=== PATIENT | male | born 1960 | race Caucasian/White ===

== ENCOUNTER 2016-06-11 20:08 | Inpatient (IN) | payer BC, OTHER ==
--- NOTE | 2016-06-11 20:17 | HP ---
CIWA Score - CIWA Score Nausea/Vomitin Muscle Tremors: 3 Anxiety: 3 Agitation: 3 Paroxysmal Sweats: 2 Orientation: 0-Oriented Tacttile Disturbances: 2-Mild Itch/Numbness/Burn Auditory Disturbances: 2-Mild Harshness/Frighten Visual Disturbances: 2-Mild Sensitivity Headache: 2-Mild CIWA-Ar Total Score: 22 Admission ROS BHS - HPI Chief Complaint: i need help to stop drinking alcohol Allergies/Adverse Reactions: Allergies Allergy/AdvReac Type Severity Reaction Status Date / Time No Known Allergies Allergy Verified 06/11/16 23:16 History of Present Illness: this 56 years old male seeking help to stop drinking alcohol,history of alcohol detox before,did not recall last detox when and where history of hypertension,hypercholestrolemia,abdominal aortic aneurysm depression longest period of sobriety 10 years - Ebola screening Have you traveled outside of the country in the last 21 days: No (N) Have you had contact with anyone from an Ebola affected area: No Have you been sick,other than usual withdrawal symptoms: No Do you have a fever: No - Review of Systems Constitutional: Loss of Appetite, Malaise, Night Sweats, Changes in sleep EENT: reports: Nose Congestion Respiratory: reports: No Symptoms reported Cardiac: reports: Palpitations GI: reports: Diarrhea, Nausea, Poor Appetite : reports: No Symptoms Reported, Other (cancaer of prostate psot seeding) Musculoskeletal: reports: Muscle Pain Integumentary: reports: Dryness Neuro: reports: Headache, Tremors Endocrine: reports: No Symptoms Reported Hematology: reports: No Symptoms Reported Psychiatric: reports: Depressed (abdominal aortic aneurysm 3.6 cms follow up with pmd and specialist) Patient History - Patient Medical History Hx Anemia: No Hx Asthma: No Hx Chronic Obstructive Pulmonary Disease (COPD): No Hx Cancer: No Hx Cardiac Disorders: No Hx Congestive Heart Failure: No Hx Hypertension: Yes (on med) Hx Hypercholesterolemia: Yes (on mde) Hx Pacemaker: No HX Cerebrovascular Accident: No Hx Seizures: No Hx Dementia: No Hx Diabetes: No Hx Gastrointestinal Disorders: No Hx Liver Disease: No Hx Genitourinary Disorders: No Hx Sexually Transmitted Disorders: No Hx Renal Disease (ESRD): No Hx Thyroid Disease: No Hx Human Immunodeficiency Virus (HIV): No (negative) Hx Hepatitis C: No Hx Depression: Yes Hx Suicide Attempt: No Hx Bipolar Disorder: No Hx Schizophrenia: No Other Medical History: no suicidal,no homicidal - Patient Surgical History Past Surgical History: Yes Hx Genitourinary Surgery: Yes (seeding for cancer of prostate) Other Surgical History: prostate seed implant - PPD History Previous Implant?: Yes Documented Results: Negative w/o proof Implanted On Prior [facility] Admission?: No PPD to be Administered?: Yes - Smoking Cessation Smoking history: Never smoked Aproximately how many cigarettes per day: 0 - Substance & Tx. History Hx Alcohol Use: Yes Hx Substance Use: No Substance Use Type: Alcohol Hx Substance Use Treatment: Yes - Substances Abused Alcohol Route: Oral Frequency: Daily Amount used: 2 pints of whiskey Age of first use: 19 Date of Last Use: 06/11/16 Family Disease History - Family Disease History Family History: Denies Admission Physical Exam [facility] - Vital Signs Vital Signs: Vital Signs Temperature 97.5 F L 06/11/16 20:35 Pulse Rate 92 H 06/11/16 20:35 Respiratory Rate 29 H 06/11/16 20:35 Blood Pressure 117/81 06/11/16 20:35 O2 Sat by Pulse Oximetry (%) - Physical General Appearance: Yes: Moderate Distress, Alcohol on Breath, Tremorous, Irritable, Sweating, Anxious HEENTM: Yes: Hearing grossly Normal, Normal ENT Inspection, JOSE, Pharynx Normal Respiratory: Yes: Lungs Clear, Normal Breath Sounds, No Respiratory Distress Neck: Yes: Within Normal Limits, Supple, Trachea in good position Breast: Yes: Within Normal Limits Cardiology: Yes: Within Normal Limits, Regular Rhythm, Regular Rate, S1, S2 Abdominal: Yes: Within Normal Limits, Normal Bowel Sounds, Non Tender, Flat, Soft, Other (pulsating mass aaa) Genitourinary: Yes: Within Normal Limits Back: Yes: Muscle Spasm Musculoskeletal: Yes: Within Normal Limits, Muscle Pain Extremities: Yes: Tremors Neurological: 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: 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 intact, Fully Oriented, Alert, Motor Strength 5/5 Integumentary: Yes: Dry Lymphatic: Yes: Within Normal Limits - Diagnostic (1) Alcohol dependence with uncomplicated withdrawal Current Visit: Yes Status: Acute (2) Alcohol dependence with uncomplicated intoxication Current Visit: Yes Status: Acute (3) Hypertension Current Visit: Yes Status: Acute (4) Hypercholesterolemia Current Visit: Yes Status: Acute (5) Depression Current Visit: Yes Status: Acute (6) History of prostate cancer Current Visit: Yes Status: Acute (7) History of abdominal aortic aneurysm (AAA) Current Visit: Yes Status: Acute Cleared for Admission S - Detox or Rehab [facility] Level of Care: Medically Managed Detox Regimen/Protocol: Librium S Breath Alcohol Content Breath Alcohol Content: 0.298 Vital Signs - Vital Signs Vital Signs Refused: No Temperature: 97.5 F Temperature Source: Oral Pulse Rate: 92 Respiratory Rate: 29 Blood Pressure: 117/81 BP Location: Left Arm - Height Height: 5 ft 11 in - Weight Weight: 150 lb Weight Measurement Method: Standing Scale Body Mass Index (BMI): 20.9 Urine Drug Screen - Test Device Lot Number: [id number] Expiration Date: 01/11/18 - Control Is Test Valid: Yes - Results Drug Screen Negative: Yes
[2016-06-11 20:22] VITALS: BMI 20.9
[2016-06-11] MEDS ORDERED: MAGNESIUM HYDROX 2400MG/30ML ORAL SUSPENSION 30 ML CUP PO PRN (20:40)
[2016-06-11] MEDS ORDERED: LOPERAMIDE HCL 2 MG CAPSULE PO PRN (20:40)
[2016-06-11] MEDS ORDERED: hydrOXYzine PAMOATE 50 MG CAPSULE (FP) PO PRN (20:40)
[2016-06-11] MEDS ORDERED: guaiFENesin/D-METHORPHAN HB 10 ML UNIT-DOSE CUPS PO PRN (20:40)
[2016-06-11] MEDS ORDERED: ACETAMINOPHEN 325 MG TABLET (FP) PO PRN (20:40)
[2016-06-11] MEDS ORDERED: P-EPHED 60MG/TRIPROLIDI 2.5MG TABLET PO PRN (20:40)
[2016-06-11] MEDS ORDERED: chlordiazePOXIDE HCL 25 MG CAPSULE PO PRN (20:40)
[2016-06-11] MEDS ORDERED: diphenhydrAMINE HCL 50 MG CAPSULE PO PRN (20:40)
[2016-06-11] MEDS ORDERED: chlordiazePOXIDE HCL 25 MG CAPSULE PO ONE (20:40)
[2016-06-11] MEDS ORDERED: MENTHOL/PHENOL 1 EACH UD MM PRN (20:40)
[2016-06-11] MEDS ORDERED: MAG HYDROX/AL HYDROX/SIMETH 30 ML UNIT-DOSE CUP PO PRN (20:40)
[2016-06-11] MEDS ORDERED: IBUPROFEN 400 MG TABLET (FP) PO PRN (20:40)
[2016-06-11] MEDS ORDERED: MAGNESIUM CITRATE 300 ML BOTTLE PO PRN (20:40)
[2016-06-11] MEDS: THIAMINE HCL 100 MG TABLET (FP) PO SCH (23:22)
[2016-06-11] MEDS: ROSUVASTATIN CA 10 MG TABLET (FP) PO SCH (23:22)
[2016-06-11] MEDS: chlordiazePOXIDE HCL 25 MG CAPSULE PO SCH (23:23)
[2016-06-12] MEDS: chlordiazePOXIDE HCL 25 MG CAPSULE PO SCH ×4 (05:34→22:28)
[2016-06-12] MEDS ORDERED: METOPROLOL SUCCINATE 25 MG TAB.SR.24H (FP) PO SCH (10:00)
[2016-06-12 10:01] LABS: MCH 32.9 pg (25.7-33.7); MCHC 33.7 g/dl (32.0-35.9); MEAN CELL VOLUME 97.4 fl (80-96); PLATELET COUNT 246 K/MM3 (134-434); RDW 13.7 % (11.9-15.9); WHITE BLOOD COUNT 4.3 K/mm3 (4.0-10.0)
[2016-06-12 10:11] LABS: ALBUMIN 3.7 g/dl (3.4-5.0); ALK PHOS 103 U/L (45-117); ANION GAP 10 (8-16); BILIRUBIN,TOTAL 0.5 mg/dL (0.2-1.0); CALCIUM 8.9 mg/dL (8.5-10.1); CO2 28 mmol/L (21-32); COCKROFT - GAULT 96.86; CREATININE 0.8 mg/dL (0.7-1.3); GLUCOSE,RANDOM 87 mg/dL (74-106); SGOT/AST 128 U/L (15-37); SGPT/ALT 100 U/L (12-78)
[2016-06-12] MEDS: ASPIRIN 81 MG CHEWABLE TABLETS PO SCH (10:14)
[2016-06-12] MEDS: PRENATAL VITAMINS W/ FOLIC ACID TABLET (FP) PO SCH (10:15)
--- NOTE | 2016-06-12 10:16 | EKG ---
Test Reason : Blood Pressure : / mmHG Vent. Rate : 066 BPM Atrial Rate : 066 BPM P-R Int : 158 ms QRS Dur : 082 ms QT Int : 416 ms P-R-T Axes : 056 054 059 degrees QTc Int : 436 ms NORMAL SINUS RHYTHM NORMAL ECG WHEN COMPARED WITH ECG OF 27-JAN-1999 17:00, VENT. RATE HAS DECREASED BY 44 BPM Confirmed by STACIE SCHULZ MD ([id number]) on 06/12/2016 10:16:21 AM Referred By: Confirmed By:STACIE SCHULZ MD
--- NOTE | 2016-06-12 11:27 | CONSULT ---
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 Substance Abuse History: - Smoking Cessation. Smoking history: Never smoked. Aproximately how many cigarettes per day: 0. - Substance & Tx. History. Hx Alcohol Use: Yes. Hx Substance Use: No. Substance Use Type: Alcohol. Hx Substance Use Treatment: Yes. - Substances Abused. Alcohol. Route: Oral. Frequency: Daily. Amount used: 2 pints of whiskey. Age of first use: 19. Date of Last Use: 06/11/16. Confirmed by patient. Medical History: History of cancer of prostate (seed implant in place), abdominal aortic aneurysm,hypertension,hypercholesterolemia and bilateral cataracts. Psychiatric History: Patient denies. Physical/Sexual Abuse/Trauma History: Patient denies. Additional Comment: Drug Screen is negative. Mental Status Exam - Mental Status Exam Alert and Oriented to: Time, Place, Person Cognitive Function: Good Patient Appearance: Well Groomed Mood: Hopeful, Euthymic Affect: Appropriate, Normal Range Patient Behavior: Appropriate, Cooperative (well-mannered) Speech Pattern: Clear, Appropriate Voice Loudness: Normal Thought Process: Intact, Goal Oriented Thought Disorder: Not Present Hallucinations: Denies Suicidal Ideation: Denies Homicidal Ideation: Denies Insight/Judgement: Fair Sleep: Poorly, Difficulty falling asleep Appetite: Good Muscle strength/Tone: Normal Gait/Station: Normal Psychiatric Findings - Problem List ([place] 1, 2,3) (1) Alcohol dependence with uncomplicated withdrawal Current Visit: Yes Status: Acute (2) History of prostate cancer Current Visit: Yes Status: Chronic (3) Hypercholesterolemia Current Visit: Yes Status: Chronic (4) Hypertension Current Visit: Yes Status: Chronic (5) Insomnia Current Visit: Yes Status: Acute - Initial Treatment Plan Initial Treatment Plan: Psychoeducation.Sleep hygiene discussed.Ambien 5 mg po hs prn.Patient is made aware of potential for parasomnias.He agrees with this careplan.Observation.
--- NOTE | 2016-06-12 11:35 | PN ---
S CIWA - CIWA Score Nausea/Vomitin Muscle Tremors: 5 Anxiety: 4-Mod. Anxious/Guarded Agitation: 4-Moderately Restless Paroxysmal Sweats: 3 Orientation: 0-Oriented Tacttile Disturbances: 0-None Auditory Disturbances: 0-None Visual Disturbances: 0-None Headache: 0-None Present CIWA-Ar Total Score: 19 BHS Progress Note (SOAP) Subjective: Sweating,anxiety,tremors,interrupted sleep,restless. Objective: 06/12/16 11:33 Vital Signs - 8 hr 06/12/16 06/12/16 06/12/16 03:38 06:03 06:42 Temperature 97.5 F L 97.8 F Pulse Rate 92 H 107 H Respiratory 18 29 H 18 Rate Blood Pressure 117/81 126/83 06/12/16 09:15 Temperature 98.6 F Pulse Rate 85 Respiratory 18 Rate Blood Pressure 128/80 Laboratory Tests 06/12/16 06/12/16 07:00 07:00 WBC 4.3 RBC 4.36 Hgb 14.3 Hct 42.5 MCV 97.4 H MCHC 33.7 RDW 13.7 Plt Count 246 MPV 8.0 Sodium 144 Potassium 3.8 Chloride 106 Carbon Dioxide 28 Anion Gap 10 BUN 17 Creatinine 0.8 Creat Clearance w eGFR > 60 Random Glucose 87 Calcium 8.9 Total Bilirubin 0.5 AST 128 H ALT 100 H Alkaline Phosphatase 103 Total Protein 7.0 Albumin 3.7 labs noted Assessment: 06/12/16 11:34 Withdrawal sx. Plan: Continue detox
[2016-06-12] MEDS ORDERED: chlordiazePOXIDE HCL 25 MG CAPSULE PO ONE (14:00)
[2016-06-12 17:01] LABS: URINE APPEARANCE CLEAR; URINE BILIRUBIN NEGATIVE (NEGATIVE); URINE COLOR LTYELLOW; URINE GLUCOSE (UA) NEGATIVE (NEGATIVE); URINE KETONE NEGATIVE (NEGATIVE); URINE LEUK ESTERASE NEGATIVE (NEGATIVE); URINE NITRITE NEGATIVE (NEGATIVE); URINE PROTEIN NEGATIVE (NEGATIVE); URINE UROBILINOGEN NEGATIVE E.U./dl (0.2-1.0)
[2016-06-12 17:02] LABS: URINE BLOOD 1+ (NEGATIVE)
[2016-06-12 17:06] LABS: URINE MUCUS RARE; URINE RBC <1 /hpf (0-3); URINE WBC 1 /hpf (3-5)
[2016-06-12] MEDS: ROSUVASTATIN CA 10 MG TABLET (FP) PO SCH (22:27)
[2016-06-12] MEDS: THIAMINE HCL 100 MG TABLET (FP) PO SCH (22:28)
[2016-06-12] MEDS: ZOLPIDEM TARTRATE 5 MG TABLET PO PRN (22:30)
[2016-06-13] MEDS: chlordiazePOXIDE HCL 25 MG CAPSULE PO SCH ×3 (05:19→17:02)
--- NOTE | 2016-06-13 10:22 | PN ---
S CIWA - CIWA Score Nausea/Vomitin-Mild Nausea/No Vomiting Muscle Tremors: 4-Moderate,w/Arms Extend Anxiety: 3 Agitation: 3 Paroxysmal Sweats: 3 Orientation: 0-Oriented Tacttile Disturbances: 0-None Auditory Disturbances: 0-None Visual Disturbances: 0-None Headache: 0-None Present CIWA-Ar Total Score: 14 BHS Progress Note (SOAP) Subjective: Anxiety,tremors,sweating,interrupted sleep,restless Objective: 06/13/16 10:21 Vital Signs - 8 hr 06/13/16 06/13/16 06/13/16 03:25 06:12 09:40 Temperature 97.3 F L 96.6 F L Pulse Rate 89 94 H Respiratory 18 18 18 Rate Blood Pressure 137/95 116/81 Laboratory Tests 06/12/16 06/12/16 06/12/16 07:00 07:00 07:00 WBC 4.3 RBC 4.36 Hgb 14.3 Hct 42.5 MCV 97.4 H MCHC 33.7 RDW 13.7 Plt Count 246 MPV 8.0 Sodium 144 Potassium 3.8 Chloride 106 Carbon Dioxide 28 Anion Gap 10 BUN 17 Creatinine 0.8 Creat Clearance w eGFR > 60 Random Glucose 87 Calcium 8.9 Total Bilirubin 0.5 AST 128 H ALT 100 H Alkaline Phosphatase 103 Total Protein 7.0 Albumin 3.7 Urine Color Urine Appearance Urine pH Ur Specific [place] Urine Protein Urine Glucose (UA) Urine Ketones Urine Blood Urine Nitrite Urine Bilirubin Urine Urobilinogen Ur Leukocyte Esterase Urine RBC Urine WBC Ur Epithelial Cells Urine Mucus RPR Titer Nonreactive 06/12/16 11:30 WBC RBC Hgb Hct MCV MCHC RDW Plt Count MPV Sodium Potassium Chloride Carbon Dioxide Anion Gap BUN Creatinine Creat Clearance w eGFR Random Glucose Calcium Total Bilirubin AST ALT Alkaline Phosphatase Total Protein Albumin Urine Color Ltyellow Urine Appearance Clear Urine pH 5.0 Ur Specific [place] 1.021 Urine Protein Negative Urine Glucose (UA) Negative Urine Ketones Negative Urine Blood 1+ H Urine Nitrite Negative Urine Bilirubin Negative Urine Urobilinogen Negative Ur Leukocyte Esterase Negative Urine RBC <1 Urine WBC 1 Ur Epithelial Cells Rare Urine Mucus Rare RPR Titer labs noted Assessment: 06/13/16 10:21 Withdrawal Sx. Plan: Continue detox
[2016-06-13] MEDS: METOPROLOL SUCCINATE 25 MG TAB.SR.24H (FP) PO SCH (10:36)
[2016-06-13] MEDS: ASPIRIN 81 MG CHEWABLE TABLETS PO SCH (10:36)
[2016-06-13] MEDS: PRENATAL VITAMINS W/ FOLIC ACID TABLET (FP) PO SCH (10:36)
[2016-06-13] MEDS ORDERED: chlordiazePOXIDE HCL 25 MG CAPSULE PO ONE (14:00)
[2016-06-13] MEDS: chlordiazePOXIDE 5 MG CAPSULE PO SCH (22:25)
[2016-06-13] MEDS: ZOLPIDEM TARTRATE 5 MG TABLET PO PRN (22:25)
[2016-06-13] MEDS: ROSUVASTATIN CA 10 MG TABLET (FP) PO SCH (22:25)
[2016-06-13] MEDS: THIAMINE HCL 100 MG TABLET (FP) PO SCH (22:25)
[2016-06-14] MEDS: chlordiazePOXIDE 5 MG CAPSULE PO SCH ×3 (05:30→17:58)
[2016-06-14] MEDS: PRENATAL VITAMINS W/ FOLIC ACID TABLET (FP) PO SCH (10:12)
[2016-06-14] MEDS: METOPROLOL SUCCINATE 25 MG TAB.SR.24H (FP) PO SCH (10:12)
[2016-06-14] MEDS: ASPIRIN 81 MG CHEWABLE TABLETS PO SCH (10:12)
--- NOTE | 2016-06-14 12:25 | PN ---
BHS Progress Note (SOAP) Subjective: Sweating,interrupted sleep,restless Objective: 06/14/16 12:24 Vital Signs - 8 hr 06/14/16 06/14/16 06:34 09:15 Temperature 97.0 F L 98.9 F Pulse Rate 79 79 Respiratory 18 18 Rate Blood Pressure 133/92 124/86 Laboratory Last Values WBC 4.3 K/mm3 (4.0-10.0) 06/12/16 07:00 RBC 4.36 M/mm3 (4.00-5.60) 06/12/16 07:00 Hgb 14.3 GM/dL (11.7-16.9) 06/12/16 07:00 Hct 42.5 % (35.4-49) 06/12/16 07:00 MCV 97.4 fl (80-96) H 06/12/16 07:00 MCHC 33.7 g/dl (32.0-35.9) 06/12/16 07:00 RDW 13.7 % (11.9-15.9) 06/12/16 07:00 Plt Count 246 K/MM3 (134-434) 06/12/16 07:00 MPV 8.0 fl (7.5-11.1) 06/12/16 07:00 Sodium 144 mmol/L (136-145) 06/12/16 07:00 Potassium 3.8 mmol/L (3.5-5.1) 06/12/16 07:00 Chloride 106 mmol/L (98-107) 06/12/16 07:00 Carbon Dioxide 28 mmol/L (21-32) 06/12/16 07:00 Anion Gap 10 (8-16) 06/12/16 07:00 BUN 17 mg/dL (7-18) 06/12/16 07:00 Creatinine 0.8 mg/dL (0.7-1.3) 06/12/16 07:00 Creat Clearance w eGFR > 60 (>60) 06/12/16 07:00 Random Glucose 87 mg/dL (74-106) 06/12/16 07:00 Calcium 8.9 mg/dL (8.5-10.1) 06/12/16 07:00 Total Bilirubin 0.5 mg/dL (0.2-1.0) 06/12/16 07:00 AST 128 U/L (15-37) H 06/12/16 07:00 ALT 100 U/L (12-78) H 06/12/16 07:00 Alkaline Phosphatase 103 U/L (45-117) 06/12/16 07:00 Total Protein 7.0 g/dl (6.4-8.2) 06/12/16 07:00 Albumin 3.7 g/dl (3.4-5.0) 06/12/16 07:00 Urine Color Ltyellow 06/12/16 11:30 Urine Appearance Clear 06/12/16 11:30 Urine pH 5.0 (5.0-8.0) 06/12/16 11:30 Ur Specific [place] 1.021 (1.001-1.035) 06/12/16 11:30 Urine Protein Negative (NEGATIVE) 06/12/16 11:30 Urine Glucose (UA) Negative (NEGATIVE) 06/12/16 11:30 Urine Ketones Negative (NEGATIVE) 06/12/16 11:30 Urine Blood 1+ (NEGATIVE) H 06/12/16 11:30 Urine Nitrite Negative (NEGATIVE) 06/12/16 11:30 Urine Bilirubin Negative (NEGATIVE) 06/12/16 11:30 Urine Urobilinogen Negative E.U./dl (0.2-1.0) 06/12/16 11:30 Ur Leukocyte Esterase Negative (NEGATIVE) 06/12/16 11:30 Urine RBC <1 /hpf (0-3) 06/12/16 11:30 Urine WBC 1 /hpf (3-5) 06/12/16 11:30 Ur Epithelial Cells Rare /hpf (FEW) 06/12/16 11:30 Urine Mucus Rare 06/12/16 11:30 RPR Titer Nonreactive (NONREACTIVE) 06/12/16 07:00 labs noted Assessment: 06/14/16 12:24 Withdrawal sx. Plan: Continue detox
[2016-06-14] MEDS: chlordiazePOXIDE HCL 10 MG CAPSULE PO SCH (22:04)
[2016-06-14] MEDS: ZOLPIDEM TARTRATE 5 MG TABLET PO PRN (22:04)
[2016-06-14] MEDS: THIAMINE HCL 100 MG TABLET (FP) PO SCH (22:04)
[2016-06-14] MEDS: ROSUVASTATIN CA 10 MG TABLET (FP) PO SCH (22:05)
[2016-06-15] MEDS: chlordiazePOXIDE HCL 10 MG CAPSULE PO SCH (05:30)
[2016-06-15 06:18] VITALS: BP 138/92; PULSE 76; TEMP 97.4
--- NOTE | 2016-06-15 10:36 | DS ---
[facility] Detox Discharge Summary Admission Date: 06/11/16 Discharge Date: 06/15/16 - History Present History: Alcohol Dependence Pertinent Past History: Hypercholesterolemia Prostate Ca. by HX. HTN - Physical Exam Results Vital Signs: Vital Signs Temperature 97.4 F L 06/15/16 06:18 Pulse Rate 76 06/15/16 06:18 Respiratory Rate 18 06/15/16 06:18 Blood Pressure 138/92 06/15/16 06:18 O2 Sat by Pulse Oximetry (%) Pertinent Admission Physical Exam Findings: Withdrawal sx. Laboratory Last Values WBC 4.3 K/mm3 (4.0-10.0) 06/12/16 07:00 RBC 4.36 M/mm3 (4.00-5.60) 06/12/16 07:00 Hgb 14.3 GM/dL (11.7-16.9) 06/12/16 07:00 Hct 42.5 % (35.4-49) 06/12/16 07:00 MCV 97.4 fl (80-96) H 06/12/16 07:00 MCHC 33.7 g/dl (32.0-35.9) 06/12/16 07:00 RDW 13.7 % (11.9-15.9) 06/12/16 07:00 Plt Count 246 K/MM3 (134-434) 06/12/16 07:00 MPV 8.0 fl (7.5-11.1) 06/12/16 07:00 Sodium 144 mmol/L (136-145) 06/12/16 07:00 Potassium 3.8 mmol/L (3.5-5.1) 06/12/16 07:00 Chloride 106 mmol/L (98-107) 06/12/16 07:00 Carbon Dioxide 28 mmol/L (21-32) 06/12/16 07:00 Anion Gap 10 (8-16) 06/12/16 07:00 BUN 17 mg/dL (7-18) 06/12/16 07:00 Creatinine 0.8 mg/dL (0.7-1.3) 06/12/16 07:00 Creat Clearance w eGFR > 60 (>60) 06/12/16 07:00 Random Glucose 87 mg/dL (74-106) 06/12/16 07:00 Calcium 8.9 mg/dL (8.5-10.1) 06/12/16 07:00 Total Bilirubin 0.5 mg/dL (0.2-1.0) 06/12/16 07:00 AST 128 U/L (15-37) H 06/12/16 07:00 ALT 100 U/L (12-78) H 06/12/16 07:00 Alkaline Phosphatase 103 U/L (45-117) 06/12/16 07:00 Total Protein 7.0 g/dl (6.4-8.2) 06/12/16 07:00 Albumin 3.7 g/dl (3.4-5.0) 06/12/16 07:00 Urine Color Ltyellow 06/12/16 11:30 Urine Appearance Clear 06/12/16 11:30 Urine pH 5.0 (5.0-8.0) 06/12/16 11:30 Ur Specific [place] 1.021 (1.001-1.035) 06/12/16 11:30 Urine Protein Negative (NEGATIVE) 06/12/16 11:30 Urine Glucose (UA) Negative (NEGATIVE) 06/12/16 11:30 Urine Ketones Negative (NEGATIVE) 06/12/16 11:30 Urine Blood 1+ (NEGATIVE) H 06/12/16 11:30 Urine Nitrite Negative (NEGATIVE) 06/12/16 11:30 Urine Bilirubin Negative (NEGATIVE) 06/12/16 11:30 Urine Urobilinogen Negative E.U./dl (0.2-1.0) 06/12/16 11:30 Ur Leukocyte Esterase Negative (NEGATIVE) 06/12/16 11:30 Urine RBC <1 /hpf (0-3) 06/12/16 11:30 Urine WBC 1 /hpf (3-5) 06/12/16 11:30 Ur Epithelial Cells Rare /hpf (FEW) 06/12/16 11:30 Urine Mucus Rare 06/12/16 11:30 RPR Titer Nonreactive (NONREACTIVE) 06/12/16 07:00 labs noted - Treatment Hospital Course: Detox Protocol Followed, Detoxed Safely, Responded well, Discharged Condition Good, Rehab Referral Accepted Patient has Accepted a Rehab Referral to: 12 step meetings - Medication Discharge Medications: Ambulatory Orders Olmesartan/Hydrochlorothiazide [Benicar Hct 20-12.5MG Tab -] 1 tab PO DAILY 03/28 Rosuvastatin Calcium [Crestor] 10 mg PO DAILY 08/13/13 - Diagnosis (1) Alcohol dependence with uncomplicated withdrawal Current Visit: Yes Status: Acute (2) History of abdominal aortic aneurysm (AAA) Current Visit: Yes Status: Acute (3) Insomnia Current Visit: Yes Status: Acute (4) History of prostate cancer Current Visit: Yes Status: Chronic (5) Hypercholesterolemia Current Visit: Yes Status: Chronic (6) Hypertension Current Visit: Yes Status: Chronic Qualifiers: Hypertension type: essential hypertension Qualified Code(s): I10 - Essential (primary) hypertension - AMA Did Patient Leave Against Medical Advice: No
== END 2016-06-15 09:15 | disposition home or self-care (01) | DRG 897 ==
LOC: YASAS 20:08 → Y3N 20:40
PROVIDERS: ADMIT Internal Medicine; ATTEND Internal Medicine
PROC: HZ2ZZZZ Detoxification Services for Substance Abuse Treatment (ICD-10-PCS; principal; 2016-06-11)
DX: F10.230 Alcohol dependence with withdrawal, uncomplicated (principal); F32.9 Major depressive disorder, single episode, unspecified; I10 Essential (primary) hypertension; G47.00 Insomnia, unspecified; E78.00 Pure hypercholesterolemia, unspecified; Z85.46 Personal history of malignant neoplasm of prostate; H26.9 Unspecified cataract; Z86.79 Personal history of other diseases of the circulatory system
CPT/HCPCS: 36415; 80053; 81003; 81015; 85027; 86593; 93005; 93010

== ENCOUNTER 2017-01-18 10:26 | Inpatient (IN) | payer OTHER ==
[2017-01-18 10:46] VITALS: BMI 25.8
--- NOTE | 2017-01-18 13:24 | HP ---
CIWA Score - CIWA Score Nausea/Vomitin-No Nausea/No Vomiting Muscle Tremors: 4-Moderate,w/Arms Extend Anxiety: 4-Mod. Anxious/Guarded Agitation: 4-Moderately Restless Paroxysmal Sweats: 3 Orientation: 0-Oriented Tacttile Disturbances: 0-None Auditory Disturbances: 0-None Visual Disturbances: 0-None Headache: 2-Mild CIWA-Ar Total Score: 17 Admission ROS S - HPI Chief Complaint: i need to be here for my disease Allergies/Adverse Reactions: Allergies Allergy/AdvReac Type Severity Reaction Status Date / Time doxepin HCl [From [place]] Allergy Severe Hives Verified 01/18/17 10:47 fluoxetine HCl [From Prozac] Allergy Severe Hives Verified 01/18/17 10:47 sertraline HCl [From Zoloft] Allergy Severe Hives Verified 01/18/17 10:47 History of Present Illness: pt is a 56yr old male with a history of alcohol dependence seeking detox for treatment. Exam Limitations: No Limitations - Ebola screening Have you traveled outside of the country in the last 21 days: No Have you had contact with anyone from an Ebola affected area: No Have you been sick,other than usual withdrawal symptoms: No Do you have a fever: No - Review of Systems Constitutional: Chills, Diaphoresis, Night Sweats, Changes in sleep EENT: reports: No Symptoms Reported Respiratory: reports: No Symptoms reported Cardiac: reports: Syncope GI: reports: Poor Appetite, Poor Fluid Intake : reports: Frequency, Urgency Musculoskeletal: reports: No Symptoms Reported Integumentary: reports: Flushing, Sweating Neuro: reports: Headache, Tingling, Tremors Endocrine: reports: Excessive Sweating, Flushing, Intolerance to Cold, Intolerance to Heat Hematology: reports: No Symptoms Reported Psychiatric: reports: Judgement Intact, Mood/Affect Appropiate, Orientated x3, Agitated, Anxious Other Systems: Reviewed and Negative Patient History - Patient Medical History Hx Anemia: No Hx Asthma: No Hx Chronic Obstructive Pulmonary Disease (COPD): No Hx Cancer: Yes (Treated for Prostate Ca: 2009 - 2010) Hx Cardiac Disorders: No Hx Congestive Heart Failure: No Hx Hypertension: Yes Hx Hypercholesterolemia: Yes (On meds.) Hx Pacemaker: No HX Cerebrovascular Accident: No Hx Seizures: No Hx Dementia: No Hx Diabetes: No Hx Gastrointestinal Disorders: No Hx Liver Disease: No Hx Genitourinary Disorders: No Hx Sexually Transmitted Disorders: No Hx Renal Disease (ESRD): No Hx Thyroid Disease: No Hx Human Immunodeficiency Virus (HIV): No (Never Tested.) Hx Hepatitis C: No (Never Tested.) Hx Depression: No Hx Suicide Attempt: No Hx Bipolar Disorder: No Hx Schizophrenia: No - Patient Surgical History Past Surgical History: Yes Hx Neurologic Surgery: No Hx Cataract Extraction: Yes (right eye in 2008/left eye in 2007) Hx Cardiac Surgery: No Hx Lung Surgery: No Hx Breast Surgery: No Hx Breast Biopsy: No Hx Abdominal Surgery: No Hx Appendectomy: No Hx Cholecystectomy: No Hx Genitourinary Surgery: Yes (seeding for cancer of prostate) Hx Section: No Hx Orthopedic Surgery: No Other Surgical History: prostate seed implant in 02/2010 Anesthesia Reaction: No - PPD History Previous Implant?: Yes Documented Results: Negative w/proof Implanted On Prior [facility] Admission?: Yes Date: 06/13/16 Results: 0 mm PPD to be Administered?: No - Reproductive History Patient is a Female of Child Bearing Age (11 -55 yrs old): No - Smoking Cessation Smoking history: Former smoker Have you smoked in the past 12 months: No Aproximately how many cigarettes per day: 0 If you are a former smoker, when did you quit?: 2008 Cigars Per Day: 0 Hx Chewing Tobacco Use: No Initiated information on smoking cessation: No - Substance & Tx. History Hx Alcohol Use: Yes Substance Use Type: Alcohol Hx Substance Use Treatment: Yes (last detox 06/2016 [facility]) - Substances Abused Alcohol-rum Route: Oral Frequency: Daily Amount used: 1 1/2 pts. Age of first use: 17 Date of Last Use: 01/18/17 Family Disease History - Family Disease History Family Disease History: CA: Father (.), Sister ( (Uterine).) Admission Physical Exam BHS - Vital Signs Vital Signs: Vital Signs - 24 hr 01/18/17 10:40 Temperature 98.0 F Pulse Rate 99 H Respiratory 19 Rate Blood Pressure 97/74 - Physical General Appearance: Yes: Appropriately Dressed, Moderate Distress, Tremorous, Irritable, Sweating, Anxious HEENTM: Yes: Normal Voice, Nasal Congestion, Rhinorrhea Respiratory: Yes: Lungs Clear, Normal Breath Sounds, No Respiratory Distress Neck: Yes: No masses,lesions,Nodules Breast: Yes: Within Normal Limits Cardiology: Yes: Regular Rhythm, Regular Rate, S1, S2 Abdominal: Yes: Normal Bowel Sounds, Non Tender, Soft Genitourinary: Yes: Within Normal Limits Back: Yes: Normal Inspection Musculoskeletal: Yes: full range of Motion Extremities: Yes: Normal Capillary Refill, Normal Inspection, Non-Tender, Tremors Neurological: Yes: Fully Oriented, Alert, Normal Response Integumentary: Yes: Normal Color Lymphatic: Yes: Within Normal Limits - Diagnostic (1) Alcohol dependence with uncomplicated intoxication Current Visit: Yes Status: Chronic (2) Alcohol dependence with uncomplicated withdrawal Current Visit: Yes Status: Chronic (3) Alcohol induced insomnia Current Visit: No Status: Acute (4) Alcohol-induced anxiety disorder Current Visit: No Status: Acute (5) Depression Current Visit: No Status: Acute (6) Insomnia Current Visit: No Status: Acute (7) Microscopic hematuria Current Visit: No Status: Acute (8) Alcohol related seizure Current Visit: No Status: Chronic (9) History of abdominal aortic aneurysm (AAA) Current Visit: No Status: Chronic (10) History of prostate cancer Current Visit: No Status: Chronic (11) Hypercholesterolemia Current Visit: No Status: Chronic (12) Hypertension Current Visit: Yes Status: Chronic Qualifiers: Cleared for Admission [facility] - Detox or Rehab [facility] Level of Care: Medically Managed Detox Regimen/Protocol: Librium [facility] Breath Alcohol Content Breath Alcohol Content: 0.406 Urine Drug Screen - Results Drug Screen Negative: No Urine Drug Screen Results: BZO-Benzodiazepines
[2017-01-18] MEDS ORDERED: MAGNESIUM CITRATE 300 ML BOTTLE PO PRN (13:25)
[2017-01-18] MEDS ORDERED: guaiFENesin/D-METHORPHAN HB 10 ML UNIT-DOSE CUPS PO PRN (13:25)
[2017-01-18] MEDS ORDERED: NICOTINE POLACRILEX 4 MG GUM BUC PRN (13:25)
[2017-01-18] MEDS ORDERED: LOPERAMIDE HCL 2 MG CAPSULE PO PRN (13:25)
[2017-01-18] MEDS ORDERED: P-EPHED 60MG/TRIPROLIDI 2.5MG TABLET PO PRN (13:25)
[2017-01-18] MEDS ORDERED: MAG HYDROX/AL HYDROX/SIMETH 30 ML UNIT-DOSE CUP PO PRN (13:25)
[2017-01-18] MEDS ORDERED: MAGNESIUM HYDROX 2400MG/30ML ORAL SUSPENSION 30 ML CUP PO PRN (13:25)
[2017-01-18] MEDS ORDERED: ACETAMINOPHEN 325 MG TABLET (FP) PO PRN (13:25)
[2017-01-18] MEDS ORDERED: MENTHOL/PHENOL 1 EACH UD MM PRN (13:25)
[2017-01-18] MEDS ORDERED: chlordiazePOXIDE HCL 25 MG CAPSULE PO PRN (13:25)
[2017-01-18] MEDS ORDERED: IBUPROFEN 400 MG TABLET (FP) PO PRN (13:25)
[2017-01-18] MEDS ORDERED: chlordiazePOXIDE HCL 25 MG CAPSULE PO ONE (13:49)
[2017-01-18 16:43] LABS: URINE APPEARANCE CLEAR; URINE BILIRUBIN NEGATIVE (NEGATIVE); URINE BLOOD NEGATIVE (NEGATIVE); URINE COLOR LTYELLOW; URINE GLUCOSE (UA) NEGATIVE (NEGATIVE); URINE KETONE NEGATIVE (NEGATIVE); URINE LEUK ESTERASE NEGATIVE (NEGATIVE); URINE NITRITE NEGATIVE (NEGATIVE); URINE PROTEIN NEGATIVE (NEGATIVE); URINE UROBILINOGEN NEGATIVE mg/dL (0.2-1.0)
[2017-01-18] MEDS: chlordiazePOXIDE HCL 25 MG CAPSULE PO SCH ×2 (17:35→22:36)
[2017-01-18 19:05] LABS: URINE LEUK ESTERASE Negative (NEGATIVE)
[2017-01-18] MEDS: ATORVASTATIN CA 10 MG TABLET (FP) PO SCH (22:36)
[2017-01-18] MEDS: THIAMINE HCL 100 MG TABLET (FP) PO SCH (22:36)
[2017-01-19] MEDS: chlordiazePOXIDE HCL 25 MG CAPSULE PO SCH ×4 (05:54→22:28)
[2017-01-19] MEDS ORDERED: PATIENT'S OWN MEDICATION (NON-FORMULARY) (Olmesartan/Hydrochlorothiazide [Benicar Hct 20-1 PO SCH (10:00)
[2017-01-19] MEDS: PRENATAL VITAMINS W/ FOLIC ACID TABLET (FP) PO SCH (10:45)
[2017-01-19] MEDS: METOPROLOL SUCCINATE 25 MG TAB.SR.24H (FP) PO SCH (10:46)
[2017-01-19] MEDS: HYDROCHLOROTHIAZIDE 12.5 MG CAPSULE (FP) PO SCH (10:46)
[2017-01-19] MEDS: ASPIRIN 81 MG CHEWABLE TABLETS PO SCH (10:46)
[2017-01-19] MEDS: VALSARTAN 160 MG TABLET (UD) PO SCH (10:47)
[2017-01-19] MEDS: NICOTINE 21 MG/24 HOURS TOPICAL PATCH TD SCH (10:47)
--- NOTE | 2017-01-19 10:48 | PN ---
[facility] CIWA - CIWA Score Nausea/Vomitin-No Nausea/No Vomiting Muscle Tremors: 4-Moderate,w/Arms Extend Anxiety: 4-Mod. Anxious/Guarded Agitation: 3 Paroxysmal Sweats: 3 Orientation: 0-Oriented Tacttile Disturbances: 0-None Auditory Disturbances: 0-None Visual Disturbances: 0-None Headache: 0-None Present CIWA-Ar Total Score: 14 BHS Progress Note (SOAP) Subjective: Anxiety,tremors,sweating,interrupted sleep,restless Objective: 01/19/17 10:47 Vital Signs - 8 hr 01/19/17 01/19/17 01/19/17 03:30 06:00 10:00 Temperature 97.7 F 98.6 F Pulse Rate 68 79 Respiratory 18 18 18 Rate Blood Pressure 139/87 133/92 Laboratory Last Values Urine Color Ltyellow 01/18/17 15:15 Urine Appearance Clear 01/18/17 15:15 Urine pH 5.0 (5.0-8.0) 01/18/17 15:15 Ur Specific [place] 1.012 (1.001-1.035) 01/18/17 15:15 Urine Protein Negative (NEGATIVE) 01/18/17 15:15 Urine Glucose (UA) Negative (NEGATIVE) 01/18/17 15:15 Urine Ketones Negative (NEGATIVE) 01/18/17 15:15 Urine Blood Negative (NEGATIVE) 01/18/17 15:15 Urine Nitrite Negative (NEGATIVE) 01/18/17 15:15 Urine Bilirubin Negative (NEGATIVE) 01/18/17 15:15 Urine Urobilinogen Negative mg/dL (0.2-1.0) 01/18/17 15:15 Ur Leukocyte Esterase Negative (NEGATIVE) 01/18/17 15:15 Assessment: 01/19/17 10:48 Withdrawal sx. Plan: Continue detox
--- NOTE | 2017-01-19 10:53 | EKG ---
Test Reason : Blood Pressure : / mmHG Vent. Rate : 112 BPM Atrial Rate : 112 BPM P-R Int : 156 ms QRS Dur : 074 ms QT Int : 306 ms P-R-T Axes : 054 044 047 degrees QTc Int : 417 ms SINUS TACHYCARDIA POOR R WAVE PROGRESSION OTHERWISE NORMAL ECG Confirmed by MD ANYI, MADELYN ([id number]) on 01/19/2017 10:52:34 AM Referred By: Confirmed By:MADELYN DE SANTIAGO MD
[2017-01-19 11:11] LABS: MCH 33.7 pg (25.7-33.7); MCHC 33.9 g/dl (32.0-35.9); MEAN CELL VOLUME 99.3 fl (80-96); MEAN PLT VOLUME 8.6 fl (7.5-11.1); PLATELET COUNT 242 K/MM3 (134-434); RDW 13.3 % (11.9-15.9); WHITE BLOOD COUNT 7.6 K/mm3 (4.0-10.0)
[2017-01-19 11:12] LABS: ALBUMIN 4.5 g/dl (3.4-5.0); ANION GAP 11 (8-16); CALCIUM 9.7 mg/dL (8.5-10.1); CO2 27 mmol/L (21-32); GLUCOSE,RANDOM 88 mg/dL (74-106)
[2017-01-19 11:18] LABS: ALK PHOS 120 U/L (45-117); BILIRUBIN,TOTAL 0.5 mg/dL (0.2-1.0); SGOT/AST 155 U/L (15-37); SGPT/ALT 136 U/L (12-78); TOT PROT 7.9 g/dl (6.4-8.2)
--- NOTE | 2017-01-19 11:56 | CONSULT ---
[facility] Psychiatric Consult - Data Date of interview: 01/19/17 Admission source: [facility] Identifying data: Pt. is a 56 year old with a chronic history of alcohol dependence . This is patient's one of multiple admissions to [facility]. Pt. admitted to detox for alcohol depedence. Substance Abuse History: Alcohol-rum Route: Oral Frequency: Daily Amount used : 1 1/2 pts. Age of first use: 17 Date of Last Use: 01/18/17. Pt. positive for benzodiazepines but states he does not take any benzodiazepines. Medical History: Hypertension, hypercholestermia, Cataract extraction- Left eye in 2007 and right eye in 2008. Prostate seed implant in 2010. Psychiatric History: Pt. denies h/o past psychiatric hospitalizations.Pt. self reports a h/o anxiety and major depression. Pt. denies h/o suicide attemps. Physical/Sexual Abuse/Trauma History: Pt. denies. Mental Status Exam - Mental Status Exam Alert and Oriented to: Time, Place, Person Cognitive Function: Fair Patient Appearance: Unkempt Mood: Withdrawn Affect: Mood Congruent Patient Behavior: Sedated (Pt. sedated but easily arousable. ) Speech Pattern: Appropriate Voice Loudness: Normal Thought Process: Intact Thought Disorder: Not Present Hallucinations: Denies Suicidal Ideation: Denies Homicidal Ideation: Denies Insight/Judgement: Fair Sleep: Poorly Appetite: Fair Muscle strength/Tone: Normal Gait/Station: Other (Shovel Operator did not visualize patient's gait.) Psychiatric Findings - Problem List ([place] 1, 2,3) (1) Alcohol dependence with uncomplicated intoxication Current Visit: Yes Status: Chronic (2) Alcohol dependence with uncomplicated withdrawal Current Visit: Yes Status: Chronic (3) Alcohol induced insomnia Current Visit: No Status: Acute (4) Alcohol-induced anxiety disorder Current Visit: No Status: Acute (5) Insomnia Current Visit: No Status: Acute (6) Major depression Current Visit: No Status: Acute Comment: Pt. self reports a history of major depression. - Initial Treatment Plan Initial Treatment Plan: Psychoeducation provided. Detox in progress. Seroquel 50mg qhs. Pt. reports favorable effect from previously taking seroquel. Pharmacy claims reviewed. Benefits/side effectis discussed with patient. Verbal consent given. Pt. agreeable with plan.
[2017-01-19] MEDS: QUEtiapine FUMARATE 50 MG TABLET PO SCH (22:28)
[2017-01-19] MEDS: ATORVASTATIN CA 10 MG TABLET (FP) PO SCH (22:29)
[2017-01-19] MEDS: THIAMINE HCL 100 MG TABLET (FP) PO SCH (22:29)
[2017-01-20] MEDS: chlordiazePOXIDE HCL 25 MG CAPSULE PO SCH ×2 (05:22→11:12)
[2017-01-20] MEDS: ASPIRIN 81 MG CHEWABLE TABLETS PO SCH (11:12)
[2017-01-20] MEDS: METOPROLOL SUCCINATE 25 MG TAB.SR.24H (FP) PO SCH ×2 (11:12→16:15)
[2017-01-20] MEDS: NICOTINE 21 MG/24 HOURS TOPICAL PATCH TD SCH (11:13)
[2017-01-20] MEDS: HYDROCHLOROTHIAZIDE 12.5 MG CAPSULE (FP) PO SCH ×2 (11:13→16:15)
[2017-01-20] MEDS: VALSARTAN 160 MG TABLET (UD) PO SCH (11:13)
[2017-01-20] MEDS: PRENATAL VITAMINS W/ FOLIC ACID TABLET (FP) PO SCH (11:13)
--- NOTE | 2017-01-20 14:21 | PN ---
S CIWA - CIWA Score Nausea/Vomitin-No Nausea/No Vomiting Muscle Tremors: 4-Moderate,w/Arms Extend Anxiety: 4-Mod. Anxious/Guarded Agitation: 3 Paroxysmal Sweats: 3 Orientation: 0-Oriented Tacttile Disturbances: 0-None Auditory Disturbances: 0-None Visual Disturbances: 0-None Headache: 0-None Present CIWA-Ar Total Score: 14 BHS Progress Note (SOAP) Subjective: Sweating,interrupted sleep,restless,tremors,anxiety Objective: 01/20/17 14:20 Vital Signs - 8 hr 01/20/17 01/20/17 06:23 10:00 Temperature 97.3 F L 98.1 F Pulse Rate 102 H 86 Respiratory 20 20 Rate Blood Pressure 139/75 101/39 Laboratory Tests 01/18/17 01/19/17 01/19/17 15:15 06:00 06:00 WBC 7.6 D RBC 4.51 Hgb 15.2 Hct 44.8 MCV 99.3 H MCH 33.7 MCHC 33.9 RDW 13.3 Plt Count 242 MPV 8.6 Sodium 144 Potassium 4.1 Chloride 106 Carbon Dioxide 27 Anion Gap 11 BUN 24 H D Creatinine 1.0 D Creat Clearance w eGFR > 60 Random Glucose 88 Calcium 9.7 Total Bilirubin 0.5 D AST 155 H D ALT 136 H D Alkaline Phosphatase 120 H Total Protein 7.9 Albumin 4.5 Urine Color Ltyellow Urine Appearance Clear Urine pH 5.0 Ur Specific [place] 1.012 Urine Protein Negative Urine Glucose (UA) Negative Urine Ketones Negative Urine Blood Negative Urine Nitrite Negative Urine Bilirubin Negative Urine Urobilinogen Negative Ur Leukocyte Esterase Negative RPR Titer 01/19/17 06:00 WBC RBC Hgb Hct MCV MCH MCHC RDW Plt Count MPV Sodium Potassium Chloride Carbon Dioxide Anion Gap BUN Creatinine Creat Clearance w eGFR Random Glucose Calcium Total Bilirubin AST ALT Alkaline Phosphatase Total Protein Albumin Urine Color Urine Appearance Urine pH Ur Specific [place] Urine Protein Urine Glucose (UA) Urine Ketones Urine Blood Urine Nitrite Urine Bilirubin Urine Urobilinogen Ur Leukocyte Esterase RPR Titer Nonreactive labs noted, no need to repeat Assessment: 01/20/17 14:21 Withdrawal sx. Plan: Continue detox
[2017-01-20] MEDS ORDERED: chlordiazePOXIDE HCL 25 MG CAPSULE PO ONE (16:00)
[2017-01-20] MEDS: chlordiazePOXIDE 5 MG CAPSULE PO SCH ×2 (16:20→22:58)
[2017-01-20] MEDS ORDERED: chlordiazePOXIDE HCL 25 MG CAPSULE ONE (18:09)
[2017-01-20] MEDS: THIAMINE HCL 100 MG TABLET (FP) PO SCH (22:58)
[2017-01-20] MEDS: ATORVASTATIN CA 10 MG TABLET (FP) PO SCH (22:58)
[2017-01-20] MEDS: QUEtiapine FUMARATE 50 MG TABLET PO SCH (22:59)
[2017-01-21] MEDS: chlordiazePOXIDE 5 MG CAPSULE PO SCH ×2 (05:49→10:30)
[2017-01-21] MEDS: HYDROCHLOROTHIAZIDE 12.5 MG CAPSULE (FP) PO SCH (10:30)
[2017-01-21] MEDS: VALSARTAN 160 MG TABLET (UD) PO SCH (10:30)
[2017-01-21] MEDS: ASPIRIN 81 MG CHEWABLE TABLETS PO SCH (10:30)
[2017-01-21] MEDS: PRENATAL VITAMINS W/ FOLIC ACID TABLET (FP) PO SCH (10:30)
[2017-01-21] MEDS: METOPROLOL SUCCINATE 25 MG TAB.SR.24H (FP) PO SCH (10:30)
[2017-01-21] MEDS: NICOTINE 21 MG/24 HOURS TOPICAL PATCH TD SCH (10:30)
--- NOTE | 2017-01-21 14:08 | PN ---
BHS Progress Note (SOAP) Subjective: sweat restlessness nausea and vomiting tolerate fluid well Objective: 01/21/17 14:07 Vital Signs Temperature 97.7 F 01/21/17 10:24 Pulse Rate 95 H 01/21/17 10:24 Respiratory Rate 18 01/21/17 10:24 Blood Pressure 133/66 01/21/17 10:24 O2 Sat by Pulse Oximetry (%) Laboratory Last Values WBC 7.6 K/mm3 (4.0-10.0) D 01/19/17 06:00 RBC 4.51 M/mm3 (4.00-5.60) 01/19/17 06:00 Hgb 15.2 GM/dL (11.7-16.9) 01/19/17 06:00 Hct 44.8 % (35.4-49) 01/19/17 06:00 MCV 99.3 fl (80-96) H 01/19/17 06:00 MCH 33.7 pg (25.7-33.7) 01/19/17 06:00 MCHC 33.9 g/dl (32.0-35.9) 01/19/17 06:00 RDW 13.3 % (11.9-15.9) 01/19/17 06:00 Plt Count 242 K/MM3 (134-434) 01/19/17 06:00 MPV 8.6 fl (7.5-11.1) 01/19/17 06:00 Sodium 144 mmol/L (136-145) 01/19/17 06:00 Potassium 4.1 mmol/L (3.5-5.1) 01/19/17 06:00 Chloride 106 mmol/L (98-107) 01/19/17 06:00 Carbon Dioxide 27 mmol/L (21-32) 01/19/17 06:00 Anion Gap 11 (8-16) 01/19/17 06:00 BUN 24 mg/dL (7-18) H D 01/19/17 06:00 Creatinine 1.0 mg/dL (0.7-1.3) D 01/19/17 06:00 Creat Clearance w eGFR > 60 (>60) 01/19/17 06:00 Random Glucose 88 mg/dL (74-106) 01/19/17 06:00 Calcium 9.7 mg/dL (8.5-10.1) 01/19/17 06:00 Total Bilirubin 0.5 mg/dL (0.2-1.0) D 01/19/17 06:00 AST 155 U/L (15-37) H D 01/19/17 06:00 ALT 136 U/L (12-78) H D 01/19/17 06:00 Alkaline Phosphatase 120 U/L (45-117) H 01/19/17 06:00 Total Protein 7.9 g/dl (6.4-8.2) 01/19/17 06:00 Albumin 4.5 g/dl (3.4-5.0) 01/19/17 06:00 Urine Color Ltyellow 01/18/17 15:15 Urine Appearance Clear 01/18/17 15:15 Urine pH 5.0 (5.0-8.0) 01/18/17 15:15 Ur Specific [place] 1.012 (1.001-1.035) 01/18/17 15:15 Urine Protein Negative (NEGATIVE) 01/18/17 15:15 Urine Glucose (UA) Negative (NEGATIVE) 01/18/17 15:15 Urine Ketones Negative (NEGATIVE) 01/18/17 15:15 Urine Blood Negative (NEGATIVE) 01/18/17 15:15 Urine Nitrite Negative (NEGATIVE) 01/18/17 15:15 Urine Bilirubin Negative (NEGATIVE) 01/18/17 15:15 Urine Urobilinogen Negative mg/dL (0.2-1.0) 01/18/17 15:15 Ur Leukocyte Esterase Negative (NEGATIVE) 01/18/17 15:15 RPR Titer Nonreactive (NONREACTIVE) 01/19/17 06:00 lab noted Assessment: 01/21/17 14:08 mild withdrawal sx Plan: observation with detox regimen
[2017-01-21] MEDS: chlordiazePOXIDE HCL 10 MG CAPSULE PO SCH ×2 (18:21→22:34)
[2017-01-21] MEDS: THIAMINE HCL 100 MG TABLET (FP) PO SCH (22:34)
[2017-01-21] MEDS: ATORVASTATIN CA 10 MG TABLET (FP) PO SCH (22:34)
[2017-01-21] MEDS: QUEtiapine FUMARATE 50 MG TABLET PO SCH (22:34)
[2017-01-22] MEDS: chlordiazePOXIDE HCL 10 MG CAPSULE PO SCH (05:27)
--- NOTE | 2017-01-22 08:35 | DS ---
[facility] Detox Discharge Summary Admission Date: 01/18/17 Discharge Date: 01/22/17 - History Present History: Alcohol Dependence - Physical Exam Results Vital Signs: Vital Signs Temperature 97.6 F 01/22/17 06:12 Pulse Rate 76 01/22/17 06:12 Respiratory Rate 18 01/22/17 06:12 Blood Pressure 102/74 01/22/17 06:12 O2 Sat by Pulse Oximetry (%) - Treatment Hospital Course: Detox Protocol Followed, Detoxed Safely, Responded well, Discharged Condition Good, Rehab Referral Accepted - Medication Discharge Medications: Ambulatory Orders Rosuvastatin Calcium [Crestor] 10 mg PO HS 08/13/13 Aspirin [ASA -] 81 mg PO DAILY 12/20/16 Mirtazapine [Remeron -] 15 mg PO HS 12/20/16 Quetiapine Fumarate [Seroquel] 100 mg PO HS #30 tablet 12/21/16 Metoprolol Succinate [Toprol Xl -] 12.5 mg PO DAILY #30 tab.sr.24h 12/23/16 Olmesartan/Hydrochlorothiazide [Benicar Hct 20-12.5MG Tab -] 1 tab PO DAILY #30 tablet 12/23/16 - Diagnosis (1) Alcohol dependence with uncomplicated withdrawal Current Visit: Yes Status: Chronic (2) Alcohol induced insomnia Current Visit: No Status: Acute (3) Alcohol-induced anxiety disorder Current Visit: No Status: Acute (4) Depression Current Visit: No Status: Acute (5) Insomnia Current Visit: No Status: Acute (6) Alcohol related seizure Current Visit: No Status: Suspected (7) History of abdominal aortic aneurysm (AAA) Current Visit: No Status: Chronic (8) History of prostate cancer Current Visit: No Status: Chronic (9) Hypercholesterolemia Current Visit: No Status: Chronic (10) Hypertension Current Visit: Yes Status: Chronic Qualifiers: Hypertension type: essential hypertension - AMA Did Patient Leave Against Medical Advice: No
[2017-01-22 09:58] VITALS: BP 118/66; PULSE 87; TEMP 97.5
== END 2017-01-22 09:18 | disposition home or self-care (01) | DRG 897 ==
LOC: YASAS 10:26 → Y6N 12:28
PROVIDERS: ADMIT Internal Medicine; ATTEND Internal Medicine
PROC: HZ2ZZZZ Detoxification Services for Substance Abuse Treatment (ICD-10-PCS; principal; 2017-01-18)
DX: F10.230 Alcohol dependence with withdrawal, uncomplicated (principal); F10.282 Alcohol dependence with alcohol-induced sleep disorder; F10.24 Alcohol dependence with alcohol-induced mood disorder; F32.9 Major depressive disorder, single episode, unspecified; G47.00 Insomnia, unspecified; I10 Essential (primary) hypertension; E78.00 Pure hypercholesterolemia, unspecified; Z85.46 Personal history of malignant neoplasm of prostate; Z86.79 Personal history of other diseases of the circulatory system
CPT/HCPCS: 36415; 80053; 81003; 85027; 86593; 93005; 93010

== ENCOUNTER 2017-01-25 12:47 | Inpatient (IN) | payer OTHER ==
[2017-01-25 14:15] VITALS: BMI 27.3
--- NOTE | 2017-01-25 16:37 | HP ---
[facility] Rehab Assess/Revision - Admission History Admitted to Rehab from: [facility] Date of Admission to Rehab: 01/25/17 - Vital signs Vital Signs: Vital Signs Period Temp Pulse Resp BP Sys/Cazares Pulse Ox Last 24 Hr 99.0 F 90 16 113/82 - Findings Detox History & Physical reviewed: Yes Concur with findings: Yes Inpatient Rehab Admission - Initial Determination Are CD services needed?: Yes Free of communicable disease: Yes Not in need of hospitalization: Yes - Rehab Admission Criteria Comorbidities: Yes Lacks judgement: Yes Patient is meeting Inpatient Rehab admission criteria:: Yes (Patient has not used since leaving facility)
[2017-01-25] MEDS ORDERED: MAGNESIUM HYDROX 2400MG/30ML ORAL SUSPENSION 30 ML CUP PO PRN (16:38)
[2017-01-25] MEDS ORDERED: MAGNESIUM CITRATE 300 ML BOTTLE PO PRN (16:38)
[2017-01-25] MEDS ORDERED: LOPERAMIDE HCL 2 MG CAPSULE PO PRN (16:38)
[2017-01-25] MEDS ORDERED: guaiFENesin/D-METHORPHAN HB 10 ML UNIT-DOSE CUPS PO PRN (16:38)
[2017-01-25] MEDS ORDERED: MENTHOL/PHENOL 1 EACH UD MM PRN (16:38)
[2017-01-25] MEDS ORDERED: MAG HYDROX/AL HYDROX/SIMETH 30 ML UNIT-DOSE CUP PO PRN (16:38)
[2017-01-25] MEDS ORDERED: P-EPHED 60MG/TRIPROLIDI 2.5MG TABLET PO PRN (16:38)
[2017-01-25] MEDS ORDERED: HYDROCHLOROTHIAZIDE 12.5 MG CAPSULE (FP) PO ONE (17:00)
[2017-01-25] MEDS ORDERED: VALSARTAN 160 MG TABLET (UD) PO ONE (17:00)
--- NOTE | 2017-01-25 20:18 | PN ---
[facility] Progress Note Note: Psychiatry Attending's on-call note : Called to enter order for seroquel. New admission : 56 y/o male. Diagnosed with alcohol dependence. Discharged last week from [address] [place] [address]. Prescribed seroquel for insomnia. Spoke to patient via telephone. Records reviewed. Medication confirmed. Side effects/benefits discussed. Seroquel 50 mg po hs.Ordered. Mr Bryant agrees.
[2017-01-25] MEDS: THIAMINE HCL 100 MG TABLET (FP) PO SCH (21:46)
[2017-01-25] MEDS: QUEtiapine FUMARATE 50 MG TABLET PO SCH (21:46)
[2017-01-25] MEDS: ROSUVASTATIN CA 10 MG TABLET (FP) PO SCH (21:47)
[2017-01-26 02:51] LABS: URINE APPEARANCE CLEAR; URINE BILIRUBIN NEGATIVE (NEGATIVE); URINE BLOOD NEGATIVE (NEGATIVE); URINE COLOR LTYELLOW; URINE GLUCOSE (UA) NEGATIVE (NEGATIVE); URINE KETONE NEGATIVE (NEGATIVE); URINE LEUK ESTERASE NEGATIVE (NEGATIVE); URINE NITRITE NEGATIVE (NEGATIVE); URINE PROTEIN NEGATIVE (NEGATIVE); URINE UROBILINOGEN NEGATIVE mg/dL (0.2-1.0)
--- NOTE | 2017-01-26 06:24 | HP ---
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 Psychiatric History: Reports receiving psychiatric treatment for depression in his early 20's. Claims he saw 3 different psychiatrists and he was tried on several medications including Ludiomil, Sinequam, Prozac, Zoloft etc. Told teletypewriter operator that treatment duration was couple of years. Denies previous psychiatric hospitalization or suicidal attempt. At present, reports feeling well but sleeping poorly Physical/Sexual Abuse/Trauma History: Denies history of verbal, physical or sexual as well as DV relationship Additional Comment: Reports one previous arrests in 1978 on charges of DWI Vital Signs: Vital Signs - 24 hr 01/25/17 01/26/17 14:11 03:30 Temperature 99.0 F Pulse Rate 90 Respiratory 16 18 Rate Blood Pressure 113/82 Allergies/Adverse Reactions: Allergies Allergy/AdvReac Type Severity Reaction Status Date / Time doxepin HCl [From Sinequan] Allergy Severe Hives Verified 01/25/17 15:39 fluoxetine HCl [From Prozac] Allergy Severe Hives Verified 01/25/17 15:39 sertraline HCl [From Zoloft] Allergy Severe Hives Verified 01/25/17 15:39 Date of last physical exam: 01/18/17 Concur with the findings of this exam: Yes - Substance Abuse/Tx History Hx Alcohol Use: Yes Hx Substance Use: No Substance Use Type: Alcohol (Started drinking alcohol at age 17, consumes 1.5 pint of rum daily. Last drank on 01/18/17) Hx Substance Use Treatment: Yes (3 previous inpt detox) Mental Status Exam - Mental Status Exam Alert and Oriented to: Time, Place, Person Cognitive Function: Fair Patient Appearance: Well Groomed Mood: Anxious Affect: Appropriate Patient Behavior: Cooperative Speech Pattern: Clear Voice Loudness: Normal Thought Process: Intact, Goal Oriented Thought Disorder: Not Present Suicidal Ideation: Denies Homicidal Ideation: Denies Insight/Judgement: Fair Sleep: Poorly Appetite: Fair Muscle strength/Tone: Normal Gait/Station: Normal Psychiatric Findings - Problem List ([place] 1, 2,3) (1) Alcohol dependence Current Visit: Yes Status: Acute (2) Nicotine dependence Current Visit: Yes Status: Chronic (3) MDD (major depressive disorder), single episode, in full remission Current Visit: Yes Status: Chronic (4) Alcohol-induced sleep disorder Current Visit: Yes Status: Acute (5) History of abdominal aortic aneurysm (AAA) Current Visit: No Status: Chronic (6) History of prostate cancer Current Visit: No Status: Chronic (7) Hypercholesterolemia Current Visit: No Status: Chronic (8) Hypertension Current Visit: No Status: Chronic Qualifiers: (9) Alcohol related seizure Current Visit: No Status: Suspected - Initial Treatment Plan Initial Treatment Plan: 1) Start Belsomra 10 mg po HS prn for insomnia. 2) Monitor progress
[2017-01-26 09:59] LABS: URINE LEUK ESTERASE Negative (NEGATIVE)
[2017-01-26] MEDS ORDERED: PATIENT'S OWN MEDICATION (NON-FORMULARY) (Olmesartan/Hydrochlorothiazide [Benicar Hct 20-1 PO SCH (10:00)
[2017-01-26] MEDS: HYDROCHLOROTHIAZIDE 12.5 MG CAPSULE (FP) PO SCH (10:38)
[2017-01-26] MEDS: PRENATAL VITAMINS W/ FOLIC ACID TABLET (FP) PO SCH (10:38)
[2017-01-26] MEDS: ASPIRIN 81 MG CHEWABLE TABLETS PO SCH (10:39)
[2017-01-26] MEDS: VALSARTAN 80 MG TABLET (UD) PO SCH (10:39)
[2017-01-26] MEDS: METOPROLOL SUCCINATE 25 MG TAB.SR.24H (FP) PO SCH (10:41)
[2017-01-26] MEDS: hydrOXYzine PAMOATE 50 MG CAPSULE (FP) PO PRN ×3 (13:05→21:50)
[2017-01-26] MEDS: THIAMINE HCL 100 MG TABLET (FP) PO SCH (21:50)
[2017-01-26] MEDS: QUEtiapine FUMARATE 50 MG TABLET PO SCH (21:51)
[2017-01-26] MEDS: ROSUVASTATIN CA 10 MG TABLET (FP) PO SCH (21:51)
[2017-01-26] MEDS: SUVOREXANT 10 MG TABLET PO PRN (21:52)
[2017-01-27] MEDS: hydrOXYzine PAMOATE 50 MG CAPSULE (FP) PO PRN ×3 (06:49→18:05)
[2017-01-27] MEDS: PRENATAL VITAMINS W/ FOLIC ACID TABLET (FP) PO SCH (10:16)
[2017-01-27] MEDS: HYDROCHLOROTHIAZIDE 12.5 MG CAPSULE (FP) PO SCH (10:16)
[2017-01-27] MEDS: METOPROLOL SUCCINATE 25 MG TAB.SR.24H (FP) PO SCH (10:16)
[2017-01-27] MEDS: ASPIRIN 81 MG CHEWABLE TABLETS PO SCH (10:16)
[2017-01-27] MEDS: VALSARTAN 80 MG TABLET (UD) PO SCH (10:16)
[2017-01-27] MEDS: ACETAMINOPHEN 325 MG TABLET (FP) PO PRN (20:01)
[2017-01-27] MEDS: THIAMINE HCL 100 MG TABLET (FP) PO SCH (21:31)
[2017-01-27] MEDS: ROSUVASTATIN CA 10 MG TABLET (FP) PO SCH (21:31)
[2017-01-27] MEDS: QUEtiapine FUMARATE 50 MG TABLET PO SCH (21:31)
[2017-01-28] MEDS: hydrOXYzine PAMOATE 50 MG CAPSULE (FP) PO PRN ×4 (07:48→20:01)
[2017-01-28] MEDS: ASPIRIN 81 MG CHEWABLE TABLETS PO SCH (10:16)
[2017-01-28] MEDS: HYDROCHLOROTHIAZIDE 12.5 MG CAPSULE (FP) PO SCH (10:16)
[2017-01-28] MEDS: PRENATAL VITAMINS W/ FOLIC ACID TABLET (FP) PO SCH (10:16)
[2017-01-28] MEDS: METOPROLOL SUCCINATE 25 MG TAB.SR.24H (FP) PO SCH (10:16)
[2017-01-28] MEDS: VALSARTAN 80 MG TABLET (UD) PO SCH (10:16)
[2017-01-28] MEDS ORDERED: PT OWN MED DRAWER 7, Y5N ONE (20:24)
[2017-01-28] MEDS: QUEtiapine FUMARATE 50 MG TABLET PO SCH (21:28)
[2017-01-28] MEDS: THIAMINE HCL 100 MG TABLET (FP) PO SCH (21:28)
[2017-01-28] MEDS: ROSUVASTATIN CA 10 MG TABLET (FP) PO SCH (21:28)
[2017-01-28] MEDS: SUVOREXANT 10 MG TABLET PO PRN (21:30)
[2017-01-29] MEDS: hydrOXYzine PAMOATE 50 MG CAPSULE (FP) PO PRN ×4 (07:15→22:01)
[2017-01-29] MEDS: HYDROCHLOROTHIAZIDE 12.5 MG CAPSULE (FP) PO SCH (11:00)
[2017-01-29] MEDS: PRENATAL VITAMINS W/ FOLIC ACID TABLET (FP) PO SCH (11:00)
[2017-01-29] MEDS: METOPROLOL SUCCINATE 25 MG TAB.SR.24H (FP) PO SCH (11:01)
[2017-01-29] MEDS: VALSARTAN 80 MG TABLET (UD) PO SCH (11:01)
--- NOTE | 2017-01-29 11:02 | PN ---
Psychiatric Progress Note Vital Signs: Vital Signs Period Temp Pulse Resp BP Sys/Cazares Pulse Ox Last 24 Hr 97.7 F 74 18-18 117/90 Date of Session: 01/29/17 Chief Complaint:: Anxiety/Insomnia HPI: Patient addressing Alcohol Dependence comorbid with Nicotine Dependence, MDD, single episode in remission and Alcohol-induced Sleep Disorder ROS: HTN, HLD, Abdominal aneurysm, alcohol-related seizure and history of prostate cancer Current Medications: Active Medications Generic Name Dose Route Start Last Admin Trade Name Freq PRN Reason Stop Dose Admin Acetaminophen 650 mg 01/25/17 16:38 01/27/17 20:01 Tylenol - PO 650 mg Q4H PRN Administration FEVER OR PAIN Al Hydroxide/Mg Hydroxide 30 ml 01/25/17 16:38 Mylanta Oral Suspension - PO Q6H PRN DYSPEPSIA Aspirin 81 mg 01/26/17 10:00 01/28/17 10:16 Asa - PO 81 mg DAILY JENNIFER Administration Eucalyptus/Menthol/Phenol/Sorbitol 1 each 01/25/17 16:38 Cepastat Lozenge - MM Q4H PRN SORE THROAT Guaifenesin 10 ml 01/25/17 16:38 Robitussin Dm - PO Q6H PRN COUGH Hydrochlorothiazide 12.5 mg 01/26/17 10:00 01/28/17 10:16 Hctz - PO 12.5 mg DAILY JENNIFER Administration Hydroxyzine Pamoate 50 mg 01/25/17 16:38 01/29/17 07:15 Vistaril - PO 50 mg Q4H PRN Administration AGITATION Ibuprofen 400 mg 01/25/17 16:38 Motrin - PO Q6H PRN PAIN Loperamide HCl 4 mg 01/25/17 16:38 Imodium - PO Q6H PRN DIARRHEA Magnesium Citrate 300 ml 01/25/17 16:38 Citroma - PO Q48H PRN CONSTIPATION Magnesium Hydroxide 30 ml 01/25/17 16:38 Milk Of Magnesia - PO DAILY PRN CONSTIPATION Metoprolol Succinate 12.5 mg 01/26/17 10:00 01/28/17 10:16 Toprol Xl - PO 12.5 mg DAILY JENNIFER Administration Multivit/Folic Acid/Iron 1 tab 01/26/17 10:00 01/28/17 10:16 Vitamins (Sjr) - PO 1 tab DAILY JENNIFER Administration Pseudoephedrine/Triprolidine 1 combo 01/25/17 16:38 Actifed - PO TID PRN NASAL CONGESTION Quetiapine Fumarate 100 mg 01/29/17 22:00 Seroquel - PO HS JENNIFER Rosuvastatin Calcium 10 mg 01/25/17 22:00 01/28/17 21:28 Crestor - PO 10 mg HS JENNIFER Administration Thiamine HCl 100 mg 01/25/17 22:00 01/28/17 21:28 Vitamin B1 - PO 100 mg HS JENNIFER Administration Valsartan 160 mg 01/26/17 10:00 01/28/17 10:16 Diovan - PO 160 mg DAILY JENNIFER Administration Medication(s) Change(s): Increase Seroquel dosage to 100 mg po HS Current Side Effect: No Lab tests ordered: Yes Lab tests reviewed: Yes Provider note:: Patient reports feeling anxious and experiencing difficulty to sleep. Told news writer that because of his prostate problem, he has to wake up frequently at night to urinate. Claims that these medications they have been prescribing for him for prostate don't work. Reports that he used to take Seroquel 100 mg in the past and he would sleep better and feel less anxious. Request that Seroquel dosage be increased Total face to face time:: 25 Mental Status Exam - Mental Status Exam Alert and Oriented to: Time, Place, Person Cognitive Function: Fair Patient Appearance: Well Groomed Mood: Anxious Affect: Appropriate Patient Behavior: Cooperative Speech Pattern: Clear Voice Loudness: Normal Thought Process: Intact, Goal Oriented Hallucinations: Denies Suicidal Ideation: Denies Homicidal Ideation: Denies Sleep: Poorly Appetite: Good Muscle strength/Tone: Normal Gait/Station: Normal Psychiatric Treatment Plan - Problem List (1) Alcohol dependence Current Visit: Yes (2) Nicotine dependence Current Visit: Yes (3) MDD (major depressive disorder), single episode, in full remission Current Visit: Yes (4) Alcohol-induced sleep disorder Current Visit: Yes (5) History of abdominal aortic aneurysm (AAA) Current Visit: No (6) History of prostate cancer Current Visit: No (7) Hypercholesterolemia Current Visit: No (8) Hypertension Current Visit: No Qualifiers: (9) Alcohol related seizure Current Visit: No Initial treatment plan: 1) Discontinue Seroquel 50 mg po HS. 2) Start Seroquel 100 mg po HS. 3) Monitor progress
[2017-01-29] MEDS: ASPIRIN 81 MG CHEWABLE TABLETS PO SCH (11:03)
[2017-01-29] MEDS ORDERED: SUVOREXANT 10 MG TABLET PO PRN (22:00)
[2017-01-29] MEDS: THIAMINE HCL 100 MG TABLET (FP) PO SCH (22:01)
[2017-01-29] MEDS: ROSUVASTATIN CA 10 MG TABLET (FP) PO SCH (22:01)
[2017-01-29] MEDS: QUEtiapine FUMARATE 100 MG TABLET (FP) PO SCH (22:02)
[2017-01-30] MEDS: hydrOXYzine PAMOATE 50 MG CAPSULE (FP) PO PRN ×2 (06:14→10:42)
[2017-01-30] MEDS: HYDROCHLOROTHIAZIDE 12.5 MG CAPSULE (FP) PO SCH (10:40)
[2017-01-30] MEDS: ASPIRIN 81 MG CHEWABLE TABLETS PO SCH (10:40)
[2017-01-30] MEDS: PRENATAL VITAMINS W/ FOLIC ACID TABLET (FP) PO SCH (10:40)
[2017-01-30] MEDS: VALSARTAN 80 MG TABLET (UD) PO SCH (10:42)
[2017-01-30] MEDS: METOPROLOL SUCCINATE 25 MG TAB.SR.24H (FP) PO SCH (10:43)
[2017-01-30] MEDS: ROSUVASTATIN CA 10 MG TABLET (FP) PO SCH (21:27)
[2017-01-30] MEDS: QUEtiapine FUMARATE 100 MG TABLET (FP) PO SCH (21:27)
[2017-01-30] MEDS: THIAMINE HCL 100 MG TABLET (FP) PO SCH (21:27)
[2017-01-30] MEDS: IBUPROFEN 400 MG TABLET (FP) PO PRN (22:13)
[2017-01-31] MEDS: HYDROCHLOROTHIAZIDE 12.5 MG CAPSULE (FP) PO SCH (09:53)
[2017-01-31] MEDS: METOPROLOL SUCCINATE 25 MG TAB.SR.24H (FP) PO SCH (09:53)
[2017-01-31] MEDS: VALSARTAN 80 MG TABLET (UD) PO SCH (09:53)
[2017-01-31] MEDS: ASPIRIN 81 MG CHEWABLE TABLETS PO SCH (09:53)
[2017-01-31] MEDS: PRENATAL VITAMINS W/ FOLIC ACID TABLET (FP) PO SCH (09:53)
[2017-01-31] MEDS: hydrOXYzine PAMOATE 50 MG CAPSULE (FP) PO PRN ×3 (09:54→21:38)
--- NOTE | 2017-01-31 15:51 | PN ---
[facility] Progress Note (SOAP) Subjective: c/o continued tremor, concerned about parkinsons Objective: 01/31/17 15:50 Vital Signs - 24 hr 01/31/17 01/31/17 01/31/17 00:30 03:30 06:55 Temperature 97.3 F L Pulse Rate 62 Respiratory 18 20 18 Rate Blood Pressure 107/59 01/31/17 09:30 Temperature Pulse Rate 89 Respiratory Rate Blood Pressure 114/72 Laboratory Tests 01/25/17 23:45 Urine Color Ltyellow Urine Appearance Clear Urine pH 5.0 Ur Specific [place] 1.010 Urine Protein Negative Urine Glucose (UA) Negative Urine Ketones Negative Urine Blood Negative Urine Nitrite Negative Urine Bilirubin Negative Urine Urobilinogen Negative Ur Leukocyte Esterase Negative labs reviewed slight tremor, no parkinsonian features, maybe familial tremor or protrtactedwithdrwaal will give propranool x1 dose to see if it imporves, patient reassured.
[2017-01-31] MEDS ORDERED: PROPRANOLOL HCL 10 MG TABLET (FP) PO ONE (16:45)
[2017-01-31] MEDS: QUEtiapine FUMARATE 100 MG TABLET (FP) PO SCH (21:38)
[2017-01-31] MEDS: THIAMINE HCL 100 MG TABLET (FP) PO SCH (21:38)
[2017-01-31] MEDS: ROSUVASTATIN CA 10 MG TABLET (FP) PO SCH (23:08)
[2017-02-01] MEDS: PRENATAL VITAMINS W/ FOLIC ACID TABLET (FP) PO SCH (10:24)
[2017-02-01] MEDS: METOPROLOL SUCCINATE 25 MG TAB.SR.24H (FP) PO SCH (10:24)
[2017-02-01] MEDS: ASPIRIN 81 MG CHEWABLE TABLETS PO SCH (10:24)
[2017-02-01] MEDS: hydrOXYzine PAMOATE 50 MG CAPSULE (FP) PO PRN ×3 (10:24→17:44)
[2017-02-01] MEDS: HYDROCHLOROTHIAZIDE 12.5 MG CAPSULE (FP) PO SCH (10:24)
[2017-02-01] MEDS: VALSARTAN 80 MG TABLET (UD) PO SCH (10:25)
[2017-02-01] MEDS: ACETAMINOPHEN 325 MG TABLET (FP) PO PRN (17:44)
[2017-02-01] MEDS: ROSUVASTATIN CA 10 MG TABLET (FP) PO SCH (21:24)
[2017-02-01] MEDS: THIAMINE HCL 100 MG TABLET (FP) PO SCH (21:25)
[2017-02-01] MEDS: QUEtiapine FUMARATE 100 MG TABLET (FP) PO SCH (21:25)
[2017-02-02] MEDS: METOPROLOL SUCCINATE 25 MG TAB.SR.24H (FP) PO SCH (10:34)
[2017-02-02] MEDS: ASPIRIN 81 MG CHEWABLE TABLETS PO SCH (10:34)
[2017-02-02] MEDS: PRENATAL VITAMINS W/ FOLIC ACID TABLET (FP) PO SCH (10:34)
[2017-02-02] MEDS: VALSARTAN 80 MG TABLET (UD) PO SCH (10:34)
[2017-02-02] MEDS: HYDROCHLOROTHIAZIDE 12.5 MG CAPSULE (FP) PO SCH (10:34)
--- NOTE | 2017-02-02 11:46 | PN ---
Progress Note (short form) - Note Progress Note: c/o b/l hand tremors, worse with intention, denies symptoms at rest. says the propranolal did nothing for his symptoms yesterday. no family hx of dementia, parkinson's, musculoskeletal d/o, last etoh was 2 weeks ago, this is pt's 3rd attempt at sobriety, started drinking oct 22 2016 after 9yrs of sobreity. denies parasthesias, numbness. PE: Neuro: CN2-12 intact. 5/5 motor strength in b/l hips, knees, ankles, hands, wrists, elbows, shoulders with extension/flexion, abduction and adduction. finger to nose b/l intact, no dysdiadochokinesia, sensation intact and equal b/ l on face, arms, hands, forearms, arms, anterior legs and feet. gait normal no pronator or limb drift. facial symmetry, speech clear with regular rate and rhythm. hand writting legiable and normal size, able to draw complete clock. alert and oriented to person, place, time and date. ROS: negative for chest pain, cough, sob, fever, blurry vision, headache, trauma. Plan: essential tremor vs protracted withdrawal sx monitor symptoms, will not continue propranolol since it did not work patient can f/u as outpatient with neurologist for further assessment of tremor and for further work-up for parkinson's if indicated. patient reassured and agrees to monitor symptoms for acute progression and will consider follow-up as outpatient. Discussed with Dr. Marks
[2017-02-02] MEDS: hydrOXYzine PAMOATE 50 MG CAPSULE (FP) PO PRN ×2 (13:28→17:59)
[2017-02-02] MEDS: THIAMINE HCL 100 MG TABLET (FP) PO SCH (21:05)
[2017-02-02] MEDS: QUEtiapine FUMARATE 100 MG TABLET (FP) PO SCH (21:05)
[2017-02-02] MEDS: ROSUVASTATIN CA 10 MG TABLET (FP) PO SCH (21:05)
[2017-02-03] MEDS: HYDROCHLOROTHIAZIDE 12.5 MG CAPSULE (FP) PO SCH (10:32)
[2017-02-03] MEDS: hydrOXYzine PAMOATE 50 MG CAPSULE (FP) PO PRN ×3 (10:32→22:18)
[2017-02-03] MEDS: ASPIRIN 81 MG CHEWABLE TABLETS PO SCH (10:32)
[2017-02-03] MEDS: METOPROLOL SUCCINATE 25 MG TAB.SR.24H (FP) PO SCH (10:32)
[2017-02-03] MEDS: PRENATAL VITAMINS W/ FOLIC ACID TABLET (FP) PO SCH (10:32)
[2017-02-03] MEDS: VALSARTAN 80 MG TABLET (UD) PO SCH (10:32)
[2017-02-03] MEDS: QUEtiapine FUMARATE 100 MG TABLET (FP) PO SCH (22:18)
[2017-02-03] MEDS: ROSUVASTATIN CA 10 MG TABLET (FP) PO SCH (22:18)
[2017-02-03] MEDS: THIAMINE HCL 100 MG TABLET (FP) PO SCH (22:18)
[2017-02-04] MEDS: hydrOXYzine PAMOATE 50 MG CAPSULE (FP) PO PRN ×3 (08:43→21:05)
[2017-02-04] MEDS: VALSARTAN 80 MG TABLET (UD) PO SCH (10:32)
[2017-02-04] MEDS: PRENATAL VITAMINS W/ FOLIC ACID TABLET (FP) PO SCH (10:32)
[2017-02-04] MEDS: HYDROCHLOROTHIAZIDE 12.5 MG CAPSULE (FP) PO SCH (10:33)
[2017-02-04] MEDS: METOPROLOL SUCCINATE 25 MG TAB.SR.24H (FP) PO SCH (10:33)
[2017-02-04] MEDS: ASPIRIN 81 MG CHEWABLE TABLETS PO SCH (10:33)
[2017-02-04] MEDS: QUEtiapine FUMARATE 100 MG TABLET (FP) PO SCH (21:05)
[2017-02-04] MEDS: THIAMINE HCL 100 MG TABLET (FP) PO SCH (21:05)
[2017-02-04] MEDS: ROSUVASTATIN CA 10 MG TABLET (FP) PO SCH (21:05)
[2017-02-04] MEDS: IBUPROFEN 400 MG TABLET (FP) PO PRN (22:10)
[2017-02-05] MEDS: VALSARTAN 80 MG TABLET (UD) PO SCH (10:29)
[2017-02-05] MEDS: PRENATAL VITAMINS W/ FOLIC ACID TABLET (FP) PO SCH (10:29)
[2017-02-05] MEDS: METOPROLOL SUCCINATE 25 MG TAB.SR.24H (FP) PO SCH (10:29)
[2017-02-05] MEDS: HYDROCHLOROTHIAZIDE 12.5 MG CAPSULE (FP) PO SCH (10:29)
[2017-02-05] MEDS: ASPIRIN 81 MG CHEWABLE TABLETS PO SCH (10:29)
[2017-02-05] MEDS: hydrOXYzine PAMOATE 50 MG CAPSULE (FP) PO PRN ×2 (10:30→15:26)
[2017-02-05] MEDS: ACETAMINOPHEN 325 MG TABLET (FP) PO PRN (15:26)
[2017-02-05] MEDS: QUEtiapine FUMARATE 100 MG TABLET (FP) PO SCH (21:30)
[2017-02-05] MEDS: ROSUVASTATIN CA 10 MG TABLET (FP) PO SCH (21:30)
[2017-02-05] MEDS: THIAMINE HCL 100 MG TABLET (FP) PO SCH (21:30)
[2017-02-06] MEDS: hydrOXYzine PAMOATE 50 MG CAPSULE (FP) PO PRN ×4 (06:48→22:01)
[2017-02-06] MEDS: ASPIRIN 81 MG CHEWABLE TABLETS PO SCH (10:28)
[2017-02-06] MEDS: HYDROCHLOROTHIAZIDE 12.5 MG CAPSULE (FP) PO SCH (10:29)
[2017-02-06] MEDS: VALSARTAN 80 MG TABLET (UD) PO SCH (10:29)
[2017-02-06] MEDS: METOPROLOL SUCCINATE 25 MG TAB.SR.24H (FP) PO SCH (10:29)
[2017-02-06] MEDS: PRENATAL VITAMINS W/ FOLIC ACID TABLET (FP) PO SCH (10:29)
[2017-02-06] MEDS: THIAMINE HCL 100 MG TABLET (FP) PO SCH (22:00)
[2017-02-06] MEDS: ROSUVASTATIN CA 10 MG TABLET (FP) PO SCH (22:01)
[2017-02-06] MEDS: QUEtiapine FUMARATE 100 MG TABLET (FP) PO SCH (22:01)
[2017-02-07] MEDS: hydrOXYzine PAMOATE 50 MG CAPSULE (FP) PO PRN ×3 (06:52→22:10)
[2017-02-07] MEDS: HYDROCHLOROTHIAZIDE 12.5 MG CAPSULE (FP) PO SCH (10:42)
[2017-02-07] MEDS: PRENATAL VITAMINS W/ FOLIC ACID TABLET (FP) PO SCH (10:42)
[2017-02-07] MEDS: METOPROLOL SUCCINATE 25 MG TAB.SR.24H (FP) PO SCH (10:43)
[2017-02-07] MEDS: VALSARTAN 80 MG TABLET (UD) PO SCH (10:43)
[2017-02-07] MEDS: ASPIRIN 81 MG CHEWABLE TABLETS PO SCH (10:43)
--- NOTE | 2017-02-07 14:29 | PN ---
Psychiatric Progress Note Vital Signs: Vital Signs Period Temp Pulse Resp BP Sys/Cazares Pulse Ox Last 24 Hr 18 Date of Session: 02/07/17 Chief Complaint:: Discharge Note HPI: Patient addressing Alcohol Dependence comorbid with Nicotine Dependence and MDD, single episode, in remision ROS: HTN, HLD, Abdominal aortic aneurysm,history of prostate cancer and alcohol- related seizure Current Medications: Active Medications Generic Name Dose Route Start Last Admin Trade Name Freq PRN Reason Stop Dose Admin Acetaminophen 650 mg 01/25/17 16:38 02/05/17 15:26 Tylenol - PO 650 mg Q4H PRN Administration FEVER OR PAIN Al Hydroxide/Mg Hydroxide 30 ml 01/25/17 16:38 Mylanta Oral Suspension - PO Q6H PRN DYSPEPSIA Aspirin 81 mg 01/26/17 10:00 02/07/17 10:43 Asa - PO 81 mg DAILY JENNIFER Administration Eucalyptus/Menthol/Phenol/Sorbitol 1 each 01/25/17 16:38 Cepastat Lozenge - MM Q4H PRN SORE THROAT Guaifenesin 10 ml 01/25/17 16:38 Robitussin Dm - PO Q6H PRN COUGH Hydrochlorothiazide 12.5 mg 01/26/17 10:00 02/07/17 10:42 Hctz - PO 12.5 mg DAILY JENNIFER Administration Hydroxyzine Pamoate 50 mg 01/25/17 16:38 02/07/17 10:44 Vistaril - PO 50 mg Q4H PRN Administration AGITATION Ibuprofen 400 mg 01/25/17 16:38 02/04/17 22:10 Motrin - PO 400 mg Q6H PRN Administration PAIN Loperamide HCl 4 mg 01/25/17 16:38 Imodium - PO Q6H PRN DIARRHEA Magnesium Citrate 300 ml 01/25/17 16:38 Citroma - PO Q48H PRN CONSTIPATION Magnesium Hydroxide 30 ml 01/25/17 16:38 Milk Of Magnesia - PO DAILY PRN CONSTIPATION Metoprolol Succinate 12.5 mg 01/26/17 10:00 02/07/17 10:43 Toprol Xl - PO 12.5 mg DAILY JENNIFER Administration Multivit/Folic Acid/Iron 1 tab 01/26/17 10:00 02/07/17 10:42 Vitamins (Sjr) - PO 1 tab DAILY JENNIFER Administration Pseudoephedrine/Triprolidine 1 combo 01/25/17 16:38 Actifed - PO TID PRN NASAL CONGESTION Quetiapine Fumarate 100 mg 01/29/17 22:00 02/06/17 22:01 Seroquel - PO 100 mg HS JENNIFER Administration Rosuvastatin Calcium 10 mg 01/25/17 22:00 02/06/17 22:01 Crestor - PO 10 mg HS JENNIFER Administration Thiamine HCl 100 mg 01/25/17 22:00 02/06/17 22:00 Vitamin B1 - PO 100 mg HS JENNIFER Administration Valsartan 160 mg 01/26/17 10:00 02/07/17 10:43 Diovan - PO 160 mg DAILY JENNIFER Administration Current Side Effect: No Lab tests ordered: Yes Lab tests reviewed: Yes Provider note:: Patient will complete this program on 02/08/17. He has met his treatment goals and will continue to address his issues in outpatient treatment at [facility]. Told travel writer that from his participation in this progrsam, he has learned the tools he needs to make changes in his lifestyle. He responded well to Vistaril 50 mg po Q 4hrs prn for anxiety and Belsomra 10 mg po HS prn for insomnia. He is stable for discharge on 02/08/17 Total face to face time:: 35 Mental Status Exam - Mental Status Exam Alert and Oriented to: Time, Place, Person Cognitive Function: Fair Patient Appearance: Well Groomed Mood: Hopeful, Euthymic Affect: Appropriate Patient Behavior: Cooperative Speech Pattern: Clear Voice Loudness: Normal Thought Process: Intact, Goal Oriented Thought Disorder: Not Present Hallucinations: Denies Suicidal Ideation: Denies Homicidal Ideation: Denies Insight/Judgement: Fair Sleep: Fair Appetite: Good Muscle strength/Tone: Normal Gait/Station: Normal Psychiatric Treatment Plan - Problem List (1) Alcohol dependence Current Visit: Yes (2) Nicotine dependence Current Visit: Yes (3) MDD (major depressive disorder), single episode, in full remission Current Visit: Yes (4) Alcohol-induced sleep disorder Current Visit: Yes (5) History of abdominal aortic aneurysm (AAA) Current Visit: No (6) History of prostate cancer Current Visit: No (7) Hypercholesterolemia Current Visit: No (8) Hypertension Current Visit: No Qualifiers: (9) Alcohol related seizure Current Visit: No Initial treatment plan: Patient will be discharged tomorrow and referred to [facility] for outpatient treatment
[2017-02-07] MEDS: ACETAMINOPHEN 325 MG TABLET (FP) PO PRN (14:33)
[2017-02-07] MEDS: QUEtiapine FUMARATE 100 MG TABLET (FP) PO SCH (22:10)
[2017-02-07] MEDS: ROSUVASTATIN CA 10 MG TABLET (FP) PO SCH (22:10)
[2017-02-07] MEDS: THIAMINE HCL 100 MG TABLET (FP) PO SCH (22:10)
[2017-02-08 07:09] VITALS: BP 126/85; PULSE 90; TEMP 97.7
[2017-02-08] MEDS: hydrOXYzine PAMOATE 50 MG CAPSULE (FP) PO PRN (08:36)
[2017-02-08] MEDS: HYDROCHLOROTHIAZIDE 12.5 MG CAPSULE (FP) PO SCH (09:41)
[2017-02-08] MEDS: PRENATAL VITAMINS W/ FOLIC ACID TABLET (FP) PO SCH (09:41)
[2017-02-08] MEDS: METOPROLOL SUCCINATE 25 MG TAB.SR.24H (FP) PO SCH (09:41)
[2017-02-08] MEDS: VALSARTAN 80 MG TABLET (UD) PO SCH (09:41)
[2017-02-08] MEDS: ASPIRIN 81 MG CHEWABLE TABLETS PO SCH (09:41)
[2017-02-08] MEDS ORDERED: PT OWN MED DRAWER 7, Y5N ONE (09:46)
== END 2017-02-08 09:45 | disposition home or self-care (01) | DRG 895 ==
LOC: YASAS 12:47 → Y3W 17:20
PROVIDERS: ADMIT Psychiatry & Neurology Psychiatry; ATTEND Psychiatry & Neurology Psychiatry
PROC: HZ42ZZZ Group Counseling for Substance Abuse Treatment, Cognitive-Behavioral (ICD-10-PCS; principal; 2017-01-25)
DX: F10.280 Alcohol dependence with alcohol-induced anxiety disorder (principal); F10.282 Alcohol dependence with alcohol-induced sleep disorder; F17.210 Nicotine dependence, cigarettes, uncomplicated; F32.5 Major depressive disorder, single episode, in full remission; E78.00 Pure hypercholesterolemia, unspecified; I10 Essential (primary) hypertension; R25.1 Tremor, unspecified; Z85.46 Personal history of malignant neoplasm of prostate; Z86.79 Personal history of other diseases of the circulatory system
CPT/HCPCS: 81003

== ENCOUNTER 2018-01-01 11:34 | Inpatient (IN) | payer OTHER ==
[2018-01-01 11:51] VITALS: BMI 26.4
--- NOTE | 2018-01-01 13:15 | HP ---
CIWA Score Nausea/Vomitin Muscle Tremors: 2 Anxiety: 2 Agitation: 2 Paroxysmal Sweats: 1-Minimal Palms Moist Orientation: 0-Oriented Tacttile Disturbances: 1-Very Mild Itch/Numbness Auditory Disturbances: 1-Very Mild Visual Disturbances: 0-None Headache: 2-Mild CIWA-Ar Total Score: 13 - Admission Criteria OASAS Guidelines: Admission for Medically Managed Detox: Requires at least one of the followin. CIWA greater than 12 2. Seizures within the past 24 hours 3. Delirium tremens within the past 24 hours 4. Hallucinations within the past 24 hours 5. Acute intervention needed for co occurring medical disorder 6. Acute intervention needed for co occurring psychiatric disorder 7. Severe withdrawal that cannot be handled at a lower level of care (continued vomiting, continued diarrhea, abnormal vital signs) requiring intravenous medication and/or fluids 8. Patient presents the following: CIWA greater than 12 Admission Criteria Met: Admission criteria met Admission ROS S - HPI Chief Complaint: i need help to stop drinking alcohol Allergies/Adverse Reactions: Allergies Allergy/AdvReac Type Severity Reaction Status Date / Time doxepin HCl [From Sinequan] Allergy Severe Hives Verified 01/01/18 12:51 fluoxetine HCl [From Prozac] Allergy Severe Hives Verified 01/01/18 12:51 sertraline HCl [From Zoloft] Allergy Severe Hives Verified 01/01/18 12:51 History of Present Illness: this 57 years old male with alcohol dependence,seeking detox,withdrawal symptom, last detox 01/18/17 to 01/23/11 syncope alcohol related hypertension on med multiple admissions in detox but keep relapsing longest period of sobriety 6 years insomnia history of ca of prostate - Ebola screening Have you traveled outside of the country in the last 21 days: No Have you had contact with anyone from an Ebola affected area: No Have you been sick,other than usual withdrawal symptoms: No Do you have a fever: No - Review of Systems Constitutional: Loss of Appetite, Malaise, Night Sweats, Changes in sleep, Weakness EENT: reports: Nose Congestion Respiratory: reports: No Symptoms reported Cardiac: reports: No Symptoms Reported GI: reports: Nausea, Vomiting, Abdominal cramping : reports: No Symptoms Reported Musculoskeletal: reports: Muscle Pain Integumentary: reports: Dryness Neuro: reports: Headache, Tremors Endocrine: reports: No Symptoms Reported Hematology: reports: No Symptoms Reported Psychiatric: reports: No Sypmtoms Reported, Judgement Intact, Mood/Affect Appropiate, Orientated x3 (insomnia) Patient History - Patient Medical History Hx Anemia: No Hx Asthma: No Hx Chronic Obstructive Pulmonary Disease (COPD): No Hx Cancer: Yes (Treated for Prostate Ca: 2009 - 2010) Hx Cardiac Disorders: No Hx Congestive Heart Failure: No Hx Hypertension: Yes (on meds) Hx Hypercholesterolemia: Yes (On meds.) Hx Pacemaker: No HX Cerebrovascular Accident: No Hx Seizures: No Hx Dementia: No Hx Diabetes: No Hx Gastrointestinal Disorders: No Hx Liver Disease: No Hx Genitourinary Disorders: No Hx Sexually Transmitted Disorders: No Hx Renal Disease (ESRD): No Hx Thyroid Disease: No Hx Human Immunodeficiency Virus (HIV): No (Never Tested.) Hx Hepatitis C: No (Never Tested.) Hx Depression: No Hx Suicide Attempt: No Hx Bipolar Disorder: No Hx Schizophrenia: No Other Medical History: insomnia,no suicidal,no homicidal,ca of prostate - Patient Surgical History Past Surgical History: Yes Hx Neurologic Surgery: No Hx Cataract Extraction: Yes (right eye in 2008/left eye in 2007) Hx Cardiac Surgery: No Hx Lung Surgery: No Hx Breast Surgery: No Hx Breast Biopsy: No Hx Abdominal Surgery: No Hx Appendectomy: No Hx Cholecystectomy: No Hx Genitourinary Surgery: Yes (seed implant for cancer of prostate in 2010) Hx Section: No Hx Orthopedic Surgery: No Other Surgical History: prostate seed implant in 02/2010 Anesthesia Reaction: No - PPD History Previous Implant?: Yes Documented Results: Negative w/proof Implanted On Prior [facility] Admission?: Yes Date: 06/13/16 Results: 0 mm PPD to be Administered?: Yes - Smoking Cessation Smoking history: Former smoker Have you smoked in the past 12 months: No Aproximately how many cigarettes per day: 0 If you are a former smoker, when did you quit?: 12/31/2008 Cigars Per Day: 0 Hx Chewing Tobacco Use: No Initiated information on smoking cessation: No - Substance & Tx. History Hx Alcohol Use: Yes Hx Substance Use: No Substance Use Type: Alcohol Hx Substance Use Treatment: Yes ([facility] last 01/18/17 to 01/22/17) - Substances Abused Alcohol-rum Route: Oral Frequency: Daily Amount used: 1 pt. Age of first use: 13 Date of Last Use: 01/01/18 Family Disease History - Family Disease History Family Disease History: CA: Father (.), Sister ( (Uterine).) Admission Physical Exam [facility] - Vital Signs Vital Signs: Vital Signs - 24 hr 01/01/18 11:45 Temperature 98.1 F Pulse Rate 94 H Respiratory 18 Rate Blood Pressure 93/61 - Physical General Appearance: Yes: Moderate Distress, Tremorous, Irritable, Sweating, Anxious HEENTM: Yes: Normal ENT Inspection, JOSE, Pharynx Normal, Other (s/p cataract surgry both eyes) Respiratory: Yes: Within Normal Limits, Lungs Clear, Normal Breath Sounds Neck: Yes: Within Normal Limits, Supple, Trachea in good position Cardiology: Yes: Within Normal Limits, Regular Rhythm, Regular Rate, S1, S2 Abdominal: Yes: Within Normal Limits, Normal Bowel Sounds, Non Tender, Flat, Soft Genitourinary: Yes: Within Normal Limits Back: Yes: Normal Inspection, Muscle Spasm Musculoskeletal: Yes: Back pain Extremities: Yes: Within Normal Limits, Normal Range of Motion, Tremors Neurological: Yes: 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 intact, Fully Oriented, Alert, Motor Strength 5/5 Integumentary: Yes: Dry Lymphatic: Yes: Within Normal Limits - Diagnostic (1) Alcohol dependence with uncomplicated withdrawal Current Visit: No Status: Chronic (2) Alcohol dependence with uncomplicated intoxication Current Visit: Yes Status: Acute (3) Essential hypertension Current Visit: Yes Status: Acute (4) Hypercholesterolemia Current Visit: No Status: Chronic (5) Insomnia Current Visit: Yes Status: Acute (6) History of abdominal aortic aneurysm (AAA) Current Visit: No Status: Chronic (7) History of prostate cancer Current Visit: No Status: Chronic (8) Nicotine dependence Current Visit: No Status: Chronic Cleared for Admission [facility] - Detox or Rehab [facility] Level of Care: Medically Managed Detox Regimen/Protocol: Librium S Breath Alcohol Content Breath Alcohol Content: 0.245 Urine Drug Screen - Results Drug Screen Negative: Yes
[2018-01-01] MEDS ORDERED: LOPERAMIDE HCL 2 MG CAPSULE PO PRN (13:35)
[2018-01-01] MEDS ORDERED: ACETAMINOPHEN 325 MG TABLET (FP) PO PRN (13:35)
[2018-01-01] MEDS ORDERED: P-EPHED 60MG/TRIPROLIDI 2.5MG TABLET PO PRN (13:35)
[2018-01-01] MEDS ORDERED: guaiFENesin/D-METHORPHAN HB 10 ML UNIT-DOSE CUPS PO PRN (13:35)
[2018-01-01] MEDS ORDERED: MAGNESIUM CITRATE 300 ML BOTTLE PO PRN (13:35)
[2018-01-01] MEDS ORDERED: MAGNESIUM HYDROX 2400MG/30ML ORAL SUSPENSION 30 ML CUP PO PRN (13:35)
[2018-01-01] MEDS ORDERED: IBUPROFEN 400 MG TABLET (FP) PO PRN (13:35)
[2018-01-01] MEDS ORDERED: MAG HYDROX/AL HYDROX/SIMETH 30 ML UNIT-DOSE CUP PO PRN (13:35)
[2018-01-01] MEDS ORDERED: MENTHOL/PHENOL 1 EACH UD MM PRN (13:35)
[2018-01-01] MEDS: chlordiazePOXIDE HCL 25 MG CAPSULE PO PRN ×2 (14:42→19:03)
[2018-01-01] MEDS: chlordiazePOXIDE HCL 25 MG CAPSULE PO SCH ×2 (17:56→22:38)
[2018-01-01] MEDS ORDERED: MELATONIN 5 MG TABLETS PO PRN (22:00)
[2018-01-01] MEDS: THIAMINE HCL 100 MG TABLET (FP) PO SCH (22:38)
[2018-01-01] MEDS: ROSUVASTATIN CA 10 MG TABLET (FP) PO SCH (22:38)
[2018-01-02] MEDS: chlordiazePOXIDE HCL 25 MG CAPSULE PO SCH ×4 (05:45→22:30)
--- NOTE | 2018-01-02 07:43 | CONSULT ---
[facility] Psychiatric Consult - Data Date of interview: 01/02/18 Admission source: [facility] Identifying data: This is a 57 years old male, single, unemployed, living alone , on pension, with no psychiatric hospitalization history, with history of MDD, with alcohol dependence,seeking detox, reporting withdrawal symptoms,last detox 01/18/17 to 01/23/11 Substance Abuse History: - Smoking Cessation. Smoking history: Former smoker. Have you smoked in the past 12 months: No. Aproximately how many cigarettes per day: 0. If you are a former smoker, when did you quit?: 12/31/2008. Cigars Per Day: 0. Hx Chewing Tobacco Use: No. Initiated information on smoking cessation: No. - Substance & Tx. History. Hx Alcohol Use: Yes. Hx Substance Use: No. Substance Use Type: Alcohol. Hx Substance Use Treatment: Yes ([facility] last 01/18/17 to 01/22/17). - Substances Abused. Alcohol-rum. Route: Oral. Frequency: Daily. Amount used: 1 pt. Age of first use: 13. Date of Last Use: 01/01/18 Medical History: HTN, Abdomina, Aortic Aneurism, Hypercholesterolemia, Pancrteatic Cancer history, Syncope history, Psychiatric History: Patient reports history of depressioj and anxiety, reports no psychiatric hospitalization history, nreports taking prior to admission: Seroquel 100mg po qhs. \Denies suicidal, homicidal history. Physical/Sexual Abuse/Trauma History: Denies Additional Comment: Seroquel 100mg po qhs Mental Status Exam - Mental Status Exam Alert and Oriented to: Person Cognitive Function: Fair Patient Appearance: Unkempt Mood: Sad Affect: Flat Patient Behavior: Sedated Speech Pattern: Delayed Voice Loudness: Mildly Soft/Quiet Thought Process: Circumstantial Thought Disorder: Not Present, Being Controlled Hallucinations: Denies Suicidal Ideation: Denies Homicidal Ideation: Denies Insight/Judgement: Fair Sleep: Difficulty falling asleep Appetite: Weight loss Muscle strength/Tone: Mild Hypotonicity Gait/Station: Shuffling Additional Comments: Seroquel 100mg po qhs Psychiatric Findings - Problem List ([place] 1, 2,3) (1) MDD (major depressive disorder) Current Visit: Yes Status: Acute (2) Alcohol dependence with uncomplicated intoxication Current Visit: Yes Status: Acute (3) Essential hypertension Current Visit: Yes Status: Acute (4) Alcohol dependence Current Visit: No Status: Acute (5) Alcohol dependence in early full remission Current Visit: No Status: Acute (6) Alcohol induced insomnia Current Visit: No Status: Acute (7) Alcohol-induced anxiety disorder Current Visit: No Status: Acute (8) Alcohol-induced sleep disorder Current Visit: No Status: Acute (9) History of abdominal aortic aneurysm (AAA) Current Visit: No Status: Chronic (10) History of prostate cancer Current Visit: No Status: Chronic (11) Hypercholesterolemia Current Visit: No Status: Chronic (12) Hypertension Current Visit: No Status: Chronic Qualifiers: (13) Alcohol related seizure Current Visit: No Status: Suspected - Initial Treatment Plan Initial Treatment Plan: Observation. Detox Unit Care Protocol. Seroquel 100mg po qhs
--- NOTE | 2018-01-02 09:48 | PN ---
[facility] CIWA - CIWA Score Nausea/Vomitin-Mild Nausea/No Vomiting Muscle Tremors: 4-Moderate,w/Arms Extend Anxiety: 2 Agitation: 3 Paroxysmal Sweats: 1-Minimal Palms Moist Orientation: 1-Uncertain about Date Tacttile Disturbances: 1-Very Mild Itch/Numbness Auditory Disturbances: 1-Very Mild Visual Disturbances: 0-None Headache: 1-Very Mild CIWA-Ar Total Score: 15 BHS Progress Note (SOAP) Subjective: patient stated that he is taking seroquel 100 mg twice daily at home psychiatrist referral headaches tremor sweat anxiety restlessness Objective: 01/02/18 10:51 Vital Signs Temperature 98.4 F 01/02/18 09:47 Pulse Rate 74 01/02/18 09:47 Respiratory Rate 18 01/02/18 09:47 Blood Pressure 113/82 01/02/18 09:47 O2 Sat by Pulse Oximetry (%) Laboratory Last Values WBC 5.2 K/mm3 (4.0-10.0) 01/02/18 07:30 RBC 4.74 M/mm3 (4.00-5.60) 01/02/18 07:30 Hgb 15.3 GM/dL (11.7-16.9) 01/02/18 07:30 Hct 46.3 % (35.4-49) 01/02/18 07:30 MCV 97.8 fl (80-96) H 01/02/18 07:30 MCH 32.4 pg (25.7-33.7) 01/02/18 07:30 MCHC 33.1 g/dl (32.0-35.9) 01/02/18 07:30 RDW 14.9 % (11.9-15.9) D 01/02/18 07:30 Plt Count 204 K/MM3 (134-434) 01/02/18 07:30 MPV 8.9 fl (7.5-11.1) 01/02/18 07:30 Sodium 137 mmol/L (136-145) 01/02/18 07:30 Potassium 3.2 mmol/L (3.5-5.1) L 01/02/18 07:30 Chloride 98 mmol/L (98-107) 01/02/18 07:30 Carbon Dioxide 29 mmol/L (21-32) 01/02/18 07:30 Anion Gap 10 MMOL/L (8-16) 01/02/18 07:30 BUN 14 mg/dL (7-18) 01/02/18 07:30 Creatinine 0.8 mg/dL (0.55-1.3) 01/02/18 07:30 Creat Clearance w eGFR > 60 (>60) 01/02/18 07:30 Random Glucose 93 mg/dL (74-106) 01/02/18 07:30 Calcium 9.6 mg/dL (8.5-10.1) 01/02/18 07:30 Total Bilirubin 1.5 mg/dL (0.2-1) H 01/02/18 07:30 AST 108 U/L (15-37) H 01/02/18 07:30 ALT 98 U/L (13-61) H 01/02/18 07:30 Alkaline Phosphatase 100 U/L (45-117) 01/02/18 07:30 Total Protein 6.9 g/dl (6.4-8.2) 01/02/18 07:30 Albumin 3.7 g/dl (3.4-5.0) 01/02/18 07:30 Urine Color Yellow 01/02/18 07:00 Urine Appearance Clear 01/02/18 07:00 Urine pH 6.0 (5.0-8.0) 01/02/18 07:00 Ur Specific [place] 1.020 (1.010-1.035) 01/02/18 07:00 Urine Protein Negative (NEGATIVE) 01/02/18 07:00 Urine Glucose (UA) Negative (NEGATIVE) 01/02/18 07:00 Urine Ketones Negative (NEGATIVE) 01/02/18 07:00 Urine Blood 1+ (NEGATIVE) H 01/02/18 07:00 Urine Nitrite Negative (NEGATIVE) 01/02/18 07:00 Urine Bilirubin Negative (<2.0 mg/dL) 01/02/18 07:00 Urine Urobilinogen 2.0 mg/dL (0.2-1.0) 01/02/18 07:00 Ur Leukocyte Esterase Negative (NEGATIVE) 01/02/18 07:00 Urine WBC (Auto) 1 /hpf (3-5) 01/02/18 07:00 Urine RBC (Auto) 2 /hpf (0-3) 01/02/18 07:00 Ur Epithelial Cells Rare /HPF (FEW) 01/02/18 07:00 Urine Mucus Rare 01/02/18 07:00 lab noted K+ supplement Assessment: 01/02/18 10:52 withdrawal sx K+ low Plan: continue detox K+ supplement repeat K+ 01/04/18
--- NOTE | 2018-01-02 10:07 | EKG ---
Test Reason : Blood Pressure : / mmHG Vent. Rate : 078 BPM Atrial Rate : 078 BPM P-R Int : 152 ms QRS Dur : 080 ms QT Int : 392 ms P-R-T Axes : 038 026 029 degrees QTc Int : 446 ms NORMAL SINUS RHYTHM LOW VOLTAGE QRS BORDERLINE ECG WHEN COMPARED WITH ECG OF 18-JAN-2017 14:23, NO SIGNIFICANT CHANGE WAS FOUND Confirmed by KAYLA RASMUSSEN MD ([id number]) on 01/02/2018 10:06:43 AM Referred By: Confirmed By:KAYLA RASMUSSEN MD
[2018-01-02] MEDS: ASPIRIN 81 MG CHEWABLE TABLETS PO SCH (10:12)
[2018-01-02] MEDS: VALSARTAN 160 MG TABLET (UD) PO SCH (10:12)
[2018-01-02] MEDS: HYDROCHLOROTHIAZIDE 12.5 MG CAPSULE (FP) PO SCH (10:12)
[2018-01-02] MEDS: metoPROLOL SUCCINATE 25 MG TAB.SR.24H (FP) PO SCH (10:13)
[2018-01-02] MEDS: PRENATAL VITAMINS W/ FOLIC ACID TABLET (FP) PO SCH (10:14)
[2018-01-02 10:33] LABS: HEMATOCRIT 46.3 % (35.4-49); HEMOGLOBIN 15.3 GM/dL (11.7-16.9); MCH 32.4 pg (25.7-33.7); MCHC 33.1 g/dl (32.0-35.9); MEAN CELL VOLUME 97.8 fl (80-96); MEAN PLT VOLUME 8.9 fl (7.5-11.1); PLATELET COUNT 204 K/MM3 (134-434); RBC 4.74 M/mm3 (4.00-5.60); RDW 14.9 % (11.9-15.9); WHITE BLOOD COUNT 5.2 K/mm3 (4.0-10.0)
[2018-01-02 10:41] LABS: ALBUMIN 3.7 g/dl (3.4-5.0); ALK PHOS 100 U/L (45-117); ANION GAP 10 MMOL/L (8-16); BILIRUBIN,TOTAL 1.5 mg/dL (0.2-1); BLOOD UREA NITROGEN 14 mg/dL (7-18); CALCIUM 9.6 mg/dL (8.5-10.1); CHLORIDE 98 mmol/L (98-107); CO2 29 mmol/L (21-32); CREATININE 0.8 mg/dL (0.55-1.3); GLUCOSE,RANDOM 93 mg/dL (74-106); POTASSIUM 3.2 mmol/L (3.5-5.1); SGOT/AST 108 U/L (15-37); SGPT/ALT 98 U/L (13-61); SODIUM 137 mmol/L (136-145); TOT PROT 6.9 g/dl (6.4-8.2)
[2018-01-02 10:42] LABS: URINE APPEARANCE CLEAR; URINE BILIRUBIN NEGATIVE (<2.0 mg/dL); URINE COLOR YELLOW; URINE GLUCOSE (UA) NEGATIVE (NEGATIVE); URINE KETONE NEGATIVE (NEGATIVE); URINE LEUK ESTERASE NEGATIVE (NEGATIVE); URINE NITRITE NEGATIVE (NEGATIVE); URINE PROTEIN NEGATIVE (NEGATIVE)
[2018-01-02] MEDS: SUMAtriptan SUCCINATE 50 MG TABLET PO SCH (10:47)
[2018-01-02] MEDS: chlordiazePOXIDE HCL 25 MG CAPSULE PO PRN ×2 (10:47→15:09)
[2018-01-02 10:49] LABS: EPI CELLS RARE /HPF (FEW); URINE MUCUS RARE
[2018-01-02] MEDS: POTASSIUM CHLORIDE TABS 20 MEQ TABLET.ER (FP) PO SCH ×2 (12:31→22:30)
[2018-01-02] MEDS: ROSUVASTATIN CA 10 MG TABLET (FP) PO SCH (22:30)
[2018-01-02] MEDS: QUEtiapine FUMARATE 100 MG TABLET (FP) PO SCH (22:30)
[2018-01-02] MEDS: THIAMINE HCL 100 MG TABLET (FP) PO SCH (22:30)
[2018-01-03] MEDS: chlordiazePOXIDE HCL 25 MG CAPSULE PO SCH ×2 (05:16→10:15)
[2018-01-03] MEDS: PRENATAL VITAMINS W/ FOLIC ACID TABLET (FP) PO SCH (10:14)
[2018-01-03] MEDS: VALSARTAN 160 MG TABLET (UD) PO SCH ×2 (10:15→10:20)
[2018-01-03] MEDS: metoPROLOL SUCCINATE 25 MG TAB.SR.24H (FP) PO SCH (10:15)
[2018-01-03] MEDS: POTASSIUM CHLORIDE TABS 20 MEQ TABLET.ER (FP) PO SCH ×2 (10:15→22:42)
[2018-01-03] MEDS: HYDROCHLOROTHIAZIDE 12.5 MG CAPSULE (FP) PO SCH ×2 (10:15→10:20)
[2018-01-03] MEDS: ASPIRIN 81 MG CHEWABLE TABLETS PO SCH (10:15)
[2018-01-03] MEDS: SUMAtriptan SUCCINATE 50 MG TABLET PO SCH (10:16)
--- NOTE | 2018-01-03 12:42 | PN ---
S CIWA - CIWA Score Nausea/Vomitin-Mild Nausea/No Vomiting Muscle Tremors: 2 Anxiety: 2 Agitation: 2 Paroxysmal Sweats: 1-Minimal Palms Moist Orientation: 0-Oriented Tacttile Disturbances: 1-Very Mild Itch/Numbness Auditory Disturbances: 1-Very Mild Visual Disturbances: 0-None Headache: 1-Very Mild CIWA-Ar Total Score: 11 BHS Progress Note (SOAP) Subjective: sweat tremor anxiety restlessness low energy Objective: 01/03/18 12:42 Vital Signs Temperature 97.9 F 01/03/18 09:27 Pulse Rate 84 01/03/18 09:27 Respiratory Rate 18 01/03/18 09:27 Blood Pressure 105/64 01/03/18 09:27 O2 Sat by Pulse Oximetry (%) Laboratory Last Values WBC 5.2 K/mm3 (4.0-10.0) 01/02/18 07:30 RBC 4.74 M/mm3 (4.00-5.60) 01/02/18 07:30 Hgb 15.3 GM/dL (11.7-16.9) 01/02/18 07:30 Hct 46.3 % (35.4-49) 01/02/18 07:30 MCV 97.8 fl (80-96) H 01/02/18 07:30 MCH 32.4 pg (25.7-33.7) 01/02/18 07:30 MCHC 33.1 g/dl (32.0-35.9) 01/02/18 07:30 RDW 14.9 % (11.9-15.9) D 01/02/18 07:30 Plt Count 204 K/MM3 (134-434) 01/02/18 07:30 MPV 8.9 fl (7.5-11.1) 01/02/18 07:30 Sodium 137 mmol/L (136-145) 01/02/18 07:30 Potassium 3.2 mmol/L (3.5-5.1) L 01/02/18 07:30 Chloride 98 mmol/L (98-107) 01/02/18 07:30 Carbon Dioxide 29 mmol/L (21-32) 01/02/18 07:30 Anion Gap 10 MMOL/L (8-16) 01/02/18 07:30 BUN 14 mg/dL (7-18) 01/02/18 07:30 Creatinine 0.8 mg/dL (0.55-1.3) 01/02/18 07:30 Creat Clearance w eGFR > 60 (>60) 01/02/18 07:30 Random Glucose 93 mg/dL (74-106) 01/02/18 07:30 Calcium 9.6 mg/dL (8.5-10.1) 01/02/18 07:30 Total Bilirubin 1.5 mg/dL (0.2-1) H 01/02/18 07:30 AST 108 U/L (15-37) H 01/02/18 07:30 ALT 98 U/L (13-61) H 01/02/18 07:30 Alkaline Phosphatase 100 U/L (45-117) 01/02/18 07:30 Total Protein 6.9 g/dl (6.4-8.2) 01/02/18 07:30 Albumin 3.7 g/dl (3.4-5.0) 01/02/18 07:30 Urine Color Yellow 01/02/18 07:00 Urine Appearance Clear 01/02/18 07:00 Urine pH 6.0 (5.0-8.0) 01/02/18 07:00 Ur Specific [place] 1.020 (1.010-1.035) 01/02/18 07:00 Urine Protein Negative (NEGATIVE) 01/02/18 07:00 Urine Glucose (UA) Negative (NEGATIVE) 01/02/18 07:00 Urine Ketones Negative (NEGATIVE) 01/02/18 07:00 Urine Blood 1+ (NEGATIVE) H 01/02/18 07:00 Urine Nitrite Negative (NEGATIVE) 01/02/18 07:00 Urine Bilirubin Negative (<2.0 mg/dL) 01/02/18 07:00 Urine Urobilinogen 2.0 mg/dL (0.2-1.0) 01/02/18 07:00 Ur Leukocyte Esterase Negative (NEGATIVE) 01/02/18 07:00 Urine WBC (Auto) 1 /hpf (3-5) 01/02/18 07:00 Urine RBC (Auto) 2 /hpf (0-3) 01/02/18 07:00 Ur Epithelial Cells Rare /HPF (FEW) 01/02/18 07:00 Urine Mucus Rare 01/02/18 07:00 RPR Titer Nonreactive (NONREACTIVE) 01/02/18 07:30 lab noted Assessment: 01/03/18 12:42 withdrawal sx Plan: continue detox continue K+
[2018-01-03] MEDS: chlordiazePOXIDE HCL 25 MG CAPSULE PO PRN (13:58)
[2018-01-03] MEDS: chlordiazePOXIDE 5 MG CAPSULE PO SCH ×2 (17:33→22:42)
[2018-01-03] MEDS: THIAMINE HCL 100 MG TABLET (FP) PO SCH (22:42)
[2018-01-03] MEDS: ROSUVASTATIN CA 10 MG TABLET (FP) PO SCH (22:42)
[2018-01-03] MEDS: QUEtiapine FUMARATE 100 MG TABLET (FP) PO SCH (22:43)
[2018-01-04] MEDS: chlordiazePOXIDE 5 MG CAPSULE PO SCH ×2 (05:27→10:33)
[2018-01-04] MEDS ORDERED: chlordiazePOXIDE HCL 10 MG CAPSULE PO SCH (09:00)
[2018-01-04] MEDS: SUMAtriptan SUCCINATE 50 MG TABLET PO SCH (10:31)
[2018-01-04] MEDS: PRENATAL VITAMINS W/ FOLIC ACID TABLET (FP) PO SCH (10:32)
[2018-01-04] MEDS: HYDROCHLOROTHIAZIDE 12.5 MG CAPSULE (FP) PO SCH (10:32)
[2018-01-04] MEDS: ASPIRIN 81 MG CHEWABLE TABLETS PO SCH (10:32)
[2018-01-04] MEDS: metoPROLOL SUCCINATE 25 MG TAB.SR.24H (FP) PO SCH (10:33)
[2018-01-04] MEDS: POTASSIUM CHLORIDE TABS 20 MEQ TABLET.ER (FP) PO SCH ×2 (10:33→22:35)
[2018-01-04] MEDS: VALSARTAN 160 MG TABLET (UD) PO SCH (10:34)
--- NOTE | 2018-01-04 11:33 | PN ---
BHS Progress Note (SOAP) Subjective: sweats shakes Objective: 01/04/18 11:33 Vital Signs Temperature 98.2 F 01/04/18 09:12 Pulse Rate 104 H 01/04/18 09:12 Respiratory Rate 18 01/04/18 09:12 Blood Pressure 107/74 01/04/18 09:12 O2 Sat by Pulse Oximetry (%) aaox3 ambulating no acute distress Assessment: 01/04/18 11:33 withdrawal sx Plan: continue detox increase fluids d/c in am
[2018-01-04] MEDS: chlordiazePOXIDE HCL 10 MG CAPSULE PO SCH ×2 (17:02→22:35)
[2018-01-04] MEDS: QUEtiapine FUMARATE 100 MG TABLET (FP) PO SCH (22:35)
[2018-01-04] MEDS: THIAMINE HCL 100 MG TABLET (FP) PO SCH (22:35)
[2018-01-04] MEDS: ROSUVASTATIN CA 10 MG TABLET (FP) PO SCH (22:35)
[2018-01-05] MEDS: chlordiazePOXIDE HCL 10 MG CAPSULE PO SCH (05:18)
--- NOTE | 2018-01-05 08:44 | DS ---
[facility] Detox Discharge Summary Admission Date: 01/01/18 Discharge Date: 01/05/18 - History Present History: Alcohol Dependence - Physical Exam Results Vital Signs: Vital Signs Temperature 98.2 F 01/05/18 06:55 Pulse Rate 75 01/05/18 06:55 Respiratory Rate 18 01/05/18 06:55 Blood Pressure 111/76 01/05/18 06:55 O2 Sat by Pulse Oximetry (%) - Treatment Hospital Course: Detox Protocol Followed, Detoxed Safely, Responded well, Discharged Condition Good, Rehab Referral Accepted - Medication Discharge Medications: Ambulatory Orders Aspirin [ASA -] 81 mg PO DAILY #30 tab.chew 02/07/17 Metoprolol Succinate [Toprol XL -] 12.5 mg PO DAILY #30 tab.sr.24h 02/07/17 Olmesartan/Hydrochlorothiazide [Benicar Hct 20-12.5MG Tab -] 1 tab PO DAILY #30 tablet 02/07/17 Rosuvastatin Calcium [Crestor] 10 mg PO HS #30 tablet 02/07/17 Quetiapine Fumarate [Seroquel] 100 mg PO HS #30 tablet 01/02/18 - Diagnosis (1) Alcohol dependence with uncomplicated intoxication Current Visit: Yes Status: Chronic (2) Essential hypertension Current Visit: Yes Status: Chronic (3) Insomnia Current Visit: Yes Status: Acute (4) MDD (major depressive disorder) Current Visit: Yes Status: Acute (5) Alcohol induced insomnia Current Visit: No Status: Acute (6) Alcohol-induced anxiety disorder Current Visit: No Status: Acute (7) Alcohol-induced sleep disorder Current Visit: No Status: Acute (8) Depression Current Visit: No Status: Acute (9) Insomnia Current Visit: No Status: Acute (10) Major depression Current Visit: No Status: Acute (11) Alcohol dependence with uncomplicated withdrawal Current Visit: Yes Status: Chronic (12) History of abdominal aortic aneurysm (AAA) Current Visit: No Status: Chronic (13) History of prostate cancer Current Visit: No Status: Chronic (14) Hypercholesterolemia Current Visit: Yes Status: Chronic (15) Hypertension Current Visit: Yes Status: Chronic Qualifiers: Hypertension type: essential hypertension (16) MDD (major depressive disorder), single episode, in full remission Current Visit: No Status: Chronic (17) Nicotine dependence Current Visit: Yes Status: Chronic Qualifiers: Nicotine product type: cigarettes Substance use status: uncomplicated Qualified Code(s): F17.210 - Nicotine dependence, cigarettes, uncomplicated - AMA Did Patient Leave Against Medical Advice: No (going home. pt has AA sponsor)
[2018-01-05] MEDS ORDERED: chlordiazePOXIDE HCL 10 MG CAPSULE PO SCH (09:00)
[2018-01-05] MEDS: PRENATAL VITAMINS W/ FOLIC ACID TABLET (FP) PO SCH (09:09)
[2018-01-05] MEDS: metoPROLOL SUCCINATE 25 MG TAB.SR.24H (FP) PO SCH (09:09)
[2018-01-05] MEDS: VALSARTAN 160 MG TABLET (UD) PO SCH (09:09)
[2018-01-05] MEDS: ASPIRIN 81 MG CHEWABLE TABLETS PO SCH (09:09)
[2018-01-05] MEDS: POTASSIUM CHLORIDE TABS 20 MEQ TABLET.ER (FP) PO SCH (09:09)
[2018-01-05] MEDS: HYDROCHLOROTHIAZIDE 12.5 MG CAPSULE (FP) PO SCH (09:09)
[2018-01-05] MEDS: SUMAtriptan SUCCINATE 50 MG TABLET PO SCH (09:14)
[2018-01-05 09:32] VITALS: BP 128/81; PULSE 101; TEMP 96.4
== END 2018-01-05 09:41 | disposition home or self-care (01) | DRG 897 ==
LOC: YASAS 11:34 → Y6N 13:19
PROVIDERS: ADMIT Neuromusculoskeletal Medicine & OMM; ATTEND Neuromusculoskeletal Medicine & OMM
PROC: HZ2ZZZZ Detoxification Services for Substance Abuse Treatment (ICD-10-PCS; principal; 2018-01-01)
DX: F10.230 Alcohol dependence with withdrawal, uncomplicated (principal); F33.9 Major depressive disorder, recurrent, unspecified; F17.210 Nicotine dependence, cigarettes, uncomplicated; F10.280 Alcohol dependence with alcohol-induced anxiety disorder; F10.282 Alcohol dependence with alcohol-induced sleep disorder; G47.00 Insomnia, unspecified; I10 Essential (primary) hypertension; E78.00 Pure hypercholesterolemia, unspecified; E87.6 Hypokalemia; Z85.46 Personal history of malignant neoplasm of prostate; Z86.79 Personal history of other diseases of the circulatory system
CPT/HCPCS: 36415; 80053; 81003; 81015; 84132; 85027; 86593; 93005; 93010

== ENCOUNTER 2018-02-18 13:42 | Inpatient (IN) | payer BC, OTHER ==
[2018-02-18 14:12] VITALS: BMI 25.9
--- NOTE | 2018-02-18 16:53 | HP ---
"CIWA Score - Admission Criteria [facility] Guidelines: Admission for Medically Managed Detox: Requires at least one of the followin. CIWA greater than 12 2. Seizures within the past 24 hours 3. Delirium tremens within the past 24 hours 4. Hallucinations within the past 24 hours 5. Acute intervention needed for co occurring medical disorder 6. Acute intervention needed for co occurring psychiatric disorder 7. Severe withdrawal that cannot be handled at a lower level of care (continued vomiting, continued diarrhea, abnormal vital signs) requiring intravenous medication and/or fluids 8. Admission ROS [facility] Allergies/Adverse Reactions: Allergies Allergy/AdvReac Type Severity Reaction Status Date / Time doxepin HCl [From Sinequan] Allergy Severe Hives Verified 02/18/18 16:06 fluoxetine HCl [From Prozac] Allergy Severe Hives Verified 02/18/18 16:06 sertraline HCl [From Zoloft] Allergy Severe Hives Verified 02/18/18 16:06 History of Present Illness: x x Search Terms: Roberto Bryant, 1960 Search Date: 02/18/2018 04:50:24 PM The Drug Utilization Report below displays all of the controlled substance prescriptions, if any, that your patient has filled in the last twelve months. The information displayed on this report is compiled from pharmacy submissions to the Department, and accurately reflects the information as submitted by the pharmacies. This report was requested by: Britney Rob | Reference #: [id number] Others' Prescriptions Patient Name: Roberto Bryant Date: 1960 Address: [address] [place] [address] Sex: Male Rx Written Rx Dispensed Drug Quantity Days Supply Prescriber Name 11/07/2017 11/07/2017 alprazolam 1 mg tablet 60 30 Rere Lema MD 08/27/2017 08/27/2017 alprazolam 1 mg tablet 30 15 Karly Rubio MD 07/04/2017 07/04/2017 alprazolam 1 mg tablet 30 15 Karly Rubio MD - Ebola screening Have you traveled outside of the country in the last 21 days: No Have you had contact with anyone from an Ebola affected area: No Have you been sick,other than usual withdrawal symptoms: No Do you have a fever: No Patient History - Patient Medical History Hx Anemia: No Hx Asthma: No Hx Chronic Obstructive Pulmonary Disease (COPD): No Hx Cancer: Yes (Treated for Prostate Ca: 2009 - 2010) Hx Cardiac Disorders: Yes Hx Congestive Heart Failure: No Hx Hypertension: Yes (on meds.) Hx Hypercholesterolemia: Yes (On meds.) Hx Pacemaker: No HX Cerebrovascular Accident: No Hx Seizures: No Hx Dementia: No Hx Diabetes: No Hx Gastrointestinal Disorders: No Hx Liver Disease: No Hx Genitourinary Disorders: No Hx Sexually Transmitted Disorders: No Hx Renal Disease (ESRD): No Hx Thyroid Disease: No Hx Human Immunodeficiency Virus (HIV): No (Never Tested.) Hx Hepatitis C: No (Never Tested.) Hx Depression: Yes Hx Suicide Attempt: No Hx Bipolar Disorder: No Hx Schizophrenia: No - Patient Surgical History Past Surgical History: Yes Hx Neurologic Surgery: No Hx Cataract Extraction: Yes (right eye in 2008/left eye in 2007) Hx Cardiac Surgery: No Hx Lung Surgery: No Hx Breast Surgery: No Hx Breast Biopsy: No Hx Abdominal Surgery: No Hx Appendectomy: No Hx Cholecystectomy: No Hx Genitourinary Surgery: Yes (seed implant for cancer of prostate in 2010) Hx Section: No Hx Orthopedic Surgery: No Other Surgical History: prostate seed implant in 02/2010 Anesthesia Reaction: No - PPD History Previous Implant?: Yes Documented Results: Negative w/proof Implanted On Prior [facility] Admission?: Yes Date: 01/03/18 Results: 0 MM - Smoking Cessation Smoking history: Former smoker Have you smoked in the past 12 months: No Aproximately how many cigarettes per day: 0 If you are a former smoker, when did you quit?: 12/2008 Cigars Per Day: 0 Hx Chewing Tobacco Use: No Initiated information on smoking cessation: No - Substances Abused Alcohol Route: Oral Frequency: Daily Amount used: 1 PINT RUM Age of first use: 13 Date of Last Use: 02/18/18 Family Disease History - Family Disease History Family Disease History: CA: Father (.), Sister ( (Uterine).) Admission Physical Exam [facility] - Vital Signs Vital Signs: Vital Signs - 24 hr 02/18/18 14:11 Temperature 97.9 F Pulse Rate 107 H Respiratory 18 Rate Blood Pressure 130/101 H [facility] Breath Alcohol Content Breath Alcohol Content: 0.286 Urine Drug Screen - Results Drug Screen Negative: Yes"
--- NOTE | 2018-02-18 17:02 | HP ---
"CIWA Score Nausea/Vomitin-Mild Nausea/No Vomiting Muscle Tremors: 4-Moderate,w/Arms Extend Anxiety: 3 Agitation: 2 Paroxysmal Sweats: 1-Minimal Palms Moist Orientation: 0-Oriented Tacttile Disturbances: 0-None Auditory Disturbances: 0-None Visual Disturbances: 0-None Headache: 1-Very Mild CIWA-Ar Total Score: 12 - Admission Criteria [facility]AS Guidelines: Admission for Medically Managed Detox: Requires at least one of the followin. CIWA greater than 12 2. Seizures within the past 24 hours 3. Delirium tremens within the past 24 hours 4. Hallucinations within the past 24 hours 5. Acute intervention needed for co occurring medical disorder 6. Acute intervention needed for co occurring psychiatric disorder 7. Severe withdrawal that cannot be handled at a lower level of care (continued vomiting, continued diarrhea, abnormal vital signs) requiring intravenous medication and/or fluids 8. Patient presents the following: CIWA greater than 12 Admission Criteria Met: Admission criteria met Admission ROS S - HPI Chief Complaint: here for alcohol detox- last time here about 6 weeks ago- refrained from alcohol use for a few days- then relapsed Uses a pint a day of rum no other illicit substances 57 years old male h/o shakes, but no h/o seizures or DT's Med hx: hypertension on med- benicar aortic aneurysm- metoprolol insomnia- takes seroquel headache- fioricet history of ca of prostate Search Date: 02/18/2018 04:50:24 PM The Drug Utilization Report below displays all of the controlled substance prescriptions, if any, that your patient has filled in the last twelve months. The information displayed on this report is compiled from pharmacy submissions to the Department, and accurately reflects the information as submitted by the pharmacies. This report was requested by: Britney Rob | Reference #: [id number] Others' Prescriptions Patient Name: Roberto Bryant Date: 1960 Address: [address] [place] [address] Sex: Male Rx Written Rx Dispensed Drug Quantity Days Supply Prescriber Name 11/07/2017 11/07/2017 alprazolam 1 mg tablet 60 30 Reer Lema MD 08/27/2017 08/27/2017 alprazolam 1 mg tablet 30 15 Karly Rubio MD 07/04/2017 07/04/2017 alprazolam 1 mg tablet 30 15 Karly Rubio MD Allergies/Adverse Reactions: Allergies Allergy/AdvReac Type Severity Reaction Status Date / Time doxepin HCl [From Sinequan] Allergy Severe Hives Verified 02/18/18 16:06 fluoxetine HCl [From Prozac] Allergy Severe Hives Verified 02/18/18 16:06 sertraline HCl [From Zoloft] Allergy Severe Hives Verified 02/18/18 16:06 Exam Limitations: No Limitations - Ebola screening Have you traveled outside of the country in the last 21 days: No Have you had contact with anyone from an Ebola affected area: No Have you been sick,other than usual withdrawal symptoms: No Do you have a fever: No - Review of Systems Constitutional: No Symptoms Reported EENT: reports: No Symptoms Reported Respiratory: reports: No Symptoms reported Cardiac: reports: No Symptoms Reported GI: reports: No Symptoms Reported : reports: Frequency Musculoskeletal: reports: No Symptoms Reported Integumentary: reports: No Symptoms Reported Neuro: reports: No Symptoms reported Hematology: reports: No Symptoms Reported Psychiatric: reports: No Sypmtoms Reported Patient History - Patient Medical History Hx Anemia: No Hx Asthma: No Hx Chronic Obstructive Pulmonary Disease (COPD): No Hx Cancer: Yes (Treated for Prostate Ca: 2009 - 2010) Hx Cardiac Disorders: Yes Hx Congestive Heart Failure: No Hx Hypertension: Yes (on meds.) Hx Hypercholesterolemia: Yes (On meds.) Hx Pacemaker: No HX Cerebrovascular Accident: No Hx Seizures: No Hx Dementia: No Hx Diabetes: No Hx Gastrointestinal Disorders: No Hx Liver Disease: No Hx Genitourinary Disorders: No Hx Sexually Transmitted Disorders: No Hx Renal Disease (ESRD): No Hx Thyroid Disease: No Hx Human Immunodeficiency Virus (HIV): No (Never Tested.) Hx Hepatitis C: No (Never Tested.) Hx Depression: Yes Hx Suicide Attempt: No Hx Bipolar Disorder: No Hx Schizophrenia: No - Patient Surgical History Past Surgical History: Yes Hx Neurologic Surgery: No Hx Cataract Extraction: Yes (right eye in 2008/left eye in 2007) Hx Cardiac Surgery: No Hx Lung Surgery: No Hx Breast Surgery: No Hx Breast Biopsy: No Hx Abdominal Surgery: No Hx Appendectomy: No Hx Cholecystectomy: No Hx Genitourinary Surgery: Yes (seed implant for cancer of prostate in 2010) Hx Section: No Hx Orthopedic Surgery: No Other Surgical History: prostate seed implant in 02/2010 Anesthesia Reaction: No - PPD History Previous Implant?: Yes Documented Results: Negative w/proof Implanted On Prior [facility] Admission?: Yes Date: 01/03/18 Results: 0 MM - Smoking Cessation Smoking history: Former smoker Have you smoked in the past 12 months: No Aproximately how many cigarettes per day: 0 If you are a former smoker, when did you quit?: 12/2008 Cigars Per Day: 0 Hx Chewing Tobacco Use: No Initiated information on smoking cessation: No - Substance & Tx. History Hx Alcohol Use: Yes Hx Substance Use: Yes Substance Use Type: Alcohol - Substances Abused Alcohol Route: Oral Frequency: Daily Amount used: 1 PINT RUM Age of first use: 13 Date of Last Use: 02/18/18 Family Disease History - Family Disease History Family Disease History: CA: Father (.), Sister ( (Uterine).) Admission Physical Exam [facility] - Vital Signs Vital Signs: Vital Signs - 24 hr 02/18/18 14:11 Temperature 97.9 F Pulse Rate 107 H Respiratory 18 Rate Blood Pressure 130/101 H - Physical General Appearance: Yes: Within Normal Limits HEENTM: Yes: Within Normal Limits Respiratory: Yes: Within Normal Limits Neck: Yes: Within Normal Limits Cardiology: Yes: Within Normal Limits Abdominal: Yes: Within Normal Limits, Protuberent Genitourinary: Yes: Within Normal Limits Back: Yes: Within Normal Limits Musculoskeletal: Yes: Within Normal Limits Extremities: Yes: Within Normal Limits Neurological: Yes: Within Normal Limits Integumentary: Yes: Within Normal Limits Lymphatic: Yes: Within Normal Limits - Diagnostic (1) Alcohol dependence with uncomplicated withdrawal Current Visit: No Status: Chronic (2) Essential hypertension Current Visit: No Status: Chronic (3) History of abdominal aortic aneurysm (AAA) Current Visit: No Status: Chronic (4) History of prostate cancer Current Visit: No Status: Chronic (5) Hypercholesterolemia Current Visit: No Status: Chronic S Breath Alcohol Content Breath Alcohol Content: 0.286 Urine Drug Screen - Results Drug Screen Negative: Yes"
[2018-02-18] MEDS ORDERED: ACETAMINOPHEN/CAFFEINE/BUTALBITAL 1 TAB PO PRN (17:14)
[2018-02-18] MEDS ORDERED: hydrOXYzine PAMOATE 50 MG CAPSULE (FP) PO PRN (17:15)
[2018-02-18] MEDS ORDERED: P-EPHED 60MG/TRIPROLIDI 2.5MG TABLET PO PRN (17:15)
[2018-02-18] MEDS ORDERED: MENTHOL/PHENOL 1 EACH UD MM PRN (17:15)
[2018-02-18] MEDS ORDERED: MAG HYDROX/AL HYDROX/SIMETH 30 ML UNIT-DOSE CUP PO PRN (17:15)
[2018-02-18] MEDS ORDERED: MAGNESIUM CITRATE 300 ML BOTTLE PO PRN (17:15)
[2018-02-18] MEDS ORDERED: IBUPROFEN 400 MG TABLET (FP) PO PRN (17:15)
[2018-02-18] MEDS ORDERED: LOPERAMIDE HCL 2 MG CAPSULE PO PRN (17:15)
[2018-02-18] MEDS ORDERED: guaiFENesin/D-METHORPHAN HB 10 ML UNIT-DOSE CUPS PO PRN (17:15)
[2018-02-18] MEDS ORDERED: MAGNESIUM HYDROX 2400MG/30ML ORAL SUSPENSION 30 ML CUP PO PRN (17:15)
[2018-02-18] MEDS: chlordiazePOXIDE HCL 25 MG CAPSULE PO PRN (18:16)
[2018-02-18] MEDS ORDERED: MELATONIN 5 MG TABLETS PO PRN (22:00)
[2018-02-18] MEDS: chlordiazePOXIDE HCL 25 MG CAPSULE PO SCH (22:25)
[2018-02-18] MEDS: QUEtiapine FUMARATE 100 MG TABLET (FP) PO SCH (22:25)
[2018-02-18] MEDS: THIAMINE HCL 100 MG TABLET (FP) PO SCH (22:25)
[2018-02-18] MEDS: ROSUVASTATIN CA 10 MG TABLET (FP) PO SCH (22:26)
[2018-02-19] MEDS: chlordiazePOXIDE HCL 25 MG CAPSULE PO SCH ×4 (05:26→22:10)
[2018-02-19 10:24] LABS: HEMATOCRIT 45.6 % (35.4-49); MCH 32.5 pg (25.7-33.7); MCHC 32.9 g/dl (32.0-35.9); MEAN CELL VOLUME 98.8 fl (80-96); MEAN PLT VOLUME 8.4 fl (7.5-11.1); PLATELET COUNT 212 K/MM3 (134-434); RBC 4.62 M/mm3 (4.00-5.60); RDW 14.5 % (11.9-15.9); WHITE BLOOD COUNT 5.3 K/mm3 (4.0-10.0)
[2018-02-19] MEDS: METOPROLOL TARTRATE 25 MG TABLET (FP) PO SCH (10:24)
[2018-02-19] MEDS: PRENATAL VITAMINS W/ FOLIC ACID TABLET (FP) PO SCH (10:24)
[2018-02-19] MEDS: ASPIRIN 81 MG CHEWABLE TABLETS PO SCH (10:26)
[2018-02-19 10:28] LABS: ALBUMIN 4.1 g/dl (3.4-5.0); ALK PHOS 96 U/L (45-117); ANION GAP 10 MMOL/L (8-16); BILIRUBIN,TOTAL 1.2 mg/dL (0.2-1); BLOOD UREA NITROGEN 13 mg/dL (7-18); CALCIUM 9.5 mg/dL (8.5-10.1); CHLORIDE 103 mmol/L (98-107); CO2 30 mmol/L (21-32); CREATININE 0.8 mg/dL (0.55-1.3); GLUCOSE,RANDOM 84 mg/dL (74-106); POTASSIUM 3.8 mmol/L (3.5-5.1); SGOT/AST 139 U/L (15-37); SGPT/ALT 100 U/L (13-61); SODIUM 143 mmol/L (136-145); TOT PROT 7.2 g/dl (6.4-8.2)
--- NOTE | 2018-02-19 13:42 | PN ---
S CIWA - CIWA Score Nausea/Vomitin-No Nausea/No Vomiting Muscle Tremors: 4-Moderate,w/Arms Extend Anxiety: 3 Agitation: 2 Paroxysmal Sweats: 2 Orientation: 0-Oriented Tacttile Disturbances: 0-None Auditory Disturbances: 0-None Visual Disturbances: 0-None Headache: 3-Moderate CIWA-Ar Total Score: 14 [facility] Progress Note (SOAP) Subjective: PATIENT C/O SHAKES, ANXIETY, SWEATING AND HEADACHES. Objective: 02/19/18 13:39 Laboratory Tests 02/19/18 02/19/18 02/19/18 07:00 07:00 07:00 WBC 5.3 RBC 4.62 Hgb 15.0 Hct 45.6 MCV 98.8 H MCH 32.5 MCHC 32.9 RDW 14.5 Plt Count 212 MPV 8.4 Sodium 143 Potassium 3.8 Chloride 103 Carbon Dioxide 30 Anion Gap 10 BUN 13 Creatinine 0.8 Creat Clearance w eGFR > 60 Random Glucose 84 Calcium 9.5 Total Bilirubin 1.2 H AST 139 H ALT 100 H Alkaline Phosphatase 96 Total Protein 7.2 Albumin 4.1 RPR Titer Nonreactive Vital Signs Temperature 98.3 F 02/19/18 09:28 Pulse Rate 88 02/19/18 11:00 Respiratory Rate 18 02/19/18 11:00 Blood Pressure 130/87 02/19/18 09:28 O2 Sat by Pulse Oximetry (%) PE: ALERT AND ORIENTED X 3 SKIN WARM, +FACIAL FLUSHING CAR S1S2 RESP CTA BL EXT FULL ROM, +TREMORS AMB AD NAS NEURO: PERRGERMAINE, CN [id number] GROSSLY INTACT Assessment: 02/19/18 13:41 WITHDRAWAL SX Plan: CONTINUE DETOX ENCOURAGE ORAL FLUIDS IBU/APAP FOR HEADACHE REPEAT LFTS IN 48 HOURS CONTINUE TO MONITOR
[2018-02-19] MEDS: chlordiazePOXIDE HCL 25 MG CAPSULE PO PRN ×2 (14:40→19:14)
[2018-02-19 15:41] LABS: URINE APPEARANCE CLEAR; URINE BILIRUBIN NEGATIVE (<2.0 mg/dL); URINE COLOR STRAW; URINE GLUCOSE (UA) NEGATIVE (NEGATIVE); URINE KETONE NEGATIVE (NEGATIVE); URINE LEUK ESTERASE NEGATIVE (NEGATIVE); URINE NITRITE NEGATIVE (NEGATIVE); URINE PROTEIN NEGATIVE (NEGATIVE); URINE UROBILINOGEN NEGATIVE mg/dL (0.2-1.0)
[2018-02-19] MEDS ORDERED: METOPROLOL TARTRATE 25 MG TABLET (FP) PO ONE (18:15)
[2018-02-19] MEDS: THIAMINE HCL 100 MG TABLET (FP) PO SCH (22:10)
[2018-02-19] MEDS: ROSUVASTATIN CA 10 MG TABLET (FP) PO SCH (22:10)
[2018-02-19] MEDS: QUEtiapine FUMARATE 100 MG TABLET (FP) PO SCH (22:10)
[2018-02-19] MEDS: ACETAMINOPHEN 325 MG TABLET (FP) PO PRN (22:11)
[2018-02-20] MEDS: chlordiazePOXIDE HCL 25 MG CAPSULE PO SCH ×3 (05:12→17:03)
[2018-02-20] MEDS: PRENATAL VITAMINS W/ FOLIC ACID TABLET (FP) PO SCH (10:25)
[2018-02-20] MEDS: METOPROLOL TARTRATE 25 MG TABLET (FP) PO SCH (10:25)
[2018-02-20] MEDS: ASPIRIN 81 MG CHEWABLE TABLETS PO SCH (10:26)
[2018-02-20 10:42] LABS: ALBUMIN 3.9 g/dl (3.4-5.0); BILIRUBIN,DIRECT 0.3 mg/dL (0.0-0.2); BILIRUBIN,TOTAL 1.4 mg/dL (0.2-1); TOT PROT 6.9 g/dl (6.4-8.2)
--- NOTE | 2018-02-20 11:33 | PN ---
S CIWA - CIWA Score Nausea/Vomitin-Mild Nausea/No Vomiting Muscle Tremors: 3 Anxiety: 1-Mildly Anxious Agitation: 2 Paroxysmal Sweats: 1-Minimal Palms Moist Orientation: 0-Oriented Tacttile Disturbances: 0-None Auditory Disturbances: 0-None Visual Disturbances: 0-None Headache: 2-Mild CIWA-Ar Total Score: 10 S Progress Note (SOAP) Subjective: tremor gi distress sweat restlessness irritable Objective: 02/20/18 11:32 Vital Signs Temperature 98.2 F 02/20/18 09:11 Pulse Rate 82 02/20/18 09:11 Respiratory Rate 18 02/20/18 09:11 Blood Pressure 117/73 02/20/18 09:11 O2 Sat by Pulse Oximetry (%) Laboratory Last Values WBC 5.3 K/mm3 (4.0-10.0) 02/19/18 07:00 RBC 4.62 M/mm3 (4.00-5.60) 02/19/18 07:00 Hgb 15.0 GM/dL (11.7-16.9) 02/19/18 07:00 Hct 45.6 % (35.4-49) 02/19/18 07:00 MCV 98.8 fl (80-96) H 02/19/18 07:00 MCH 32.5 pg (25.7-33.7) 02/19/18 07:00 MCHC 32.9 g/dl (32.0-35.9) 02/19/18 07:00 RDW 14.5 % (11.9-15.9) 02/19/18 07:00 Plt Count 212 K/MM3 (134-434) 02/19/18 07:00 MPV 8.4 fl (7.5-11.1) 02/19/18 07:00 Sodium 143 mmol/L (136-145) 02/19/18 07:00 Potassium 3.8 mmol/L (3.5-5.1) 02/19/18 07:00 Chloride 103 mmol/L (98-107) 02/19/18 07:00 Carbon Dioxide 30 mmol/L (21-32) 02/19/18 07:00 Anion Gap 10 MMOL/L (8-16) 02/19/18 07:00 BUN 13 mg/dL (7-18) 02/19/18 07:00 Creatinine 0.8 mg/dL (0.55-1.3) 02/19/18 07:00 Creat Clearance w eGFR > 60 (>60) 02/19/18 07:00 Random Glucose 84 mg/dL (74-106) 02/19/18 07:00 Calcium 9.5 mg/dL (8.5-10.1) 02/19/18 07:00 Total Bilirubin 1.4 mg/dL (0.2-1) H 02/20/18 07:00 Direct Bilirubin 0.3 mg/dL (0.0-0.2) H 02/20/18 07:00 AST 141 U/L (15-37) H 02/20/18 07:00 ALT 120 U/L (13-61) H 02/20/18 07:00 Alkaline Phosphatase 93 U/L (45-117) 02/20/18 07:00 Total Protein 6.9 g/dl (6.4-8.2) 02/20/18 07:00 Albumin 3.9 g/dl (3.4-5.0) 02/20/18 07:00 Urine Color Straw 02/18/18 11:45 Urine Appearance Clear 02/18/18 11:45 Urine pH 6.0 (5.0-8.0) 02/18/18 11:45 Ur Specific [place] 1.004 (1.010-1.035) L 02/18/18 11:45 Urine Protein Negative (NEGATIVE) 02/18/18 11:45 Urine Glucose (UA) Negative (NEGATIVE) 02/18/18 11:45 Urine Ketones Negative (NEGATIVE) 02/18/18 11:45 Urine Blood Negative (NEGATIVE) 02/18/18 11:45 Urine Nitrite Negative (NEGATIVE) 02/18/18 11:45 Urine Bilirubin Negative (<2.0 mg/dL) 02/18/18 11:45 Urine Urobilinogen Negative mg/dL (0.2-1.0) 02/18/18 11:45 Ur Leukocyte Esterase Negative (NEGATIVE) 02/18/18 11:45 RPR Titer Nonreactive (NONREACTIVE) 02/19/18 07:00 lab noted repeat ast 02/20/18 11:33 Assessment: 02/20/18 11:34 withdrawal sx Plan: continue detox
[2018-02-20] MEDS: chlordiazePOXIDE HCL 25 MG CAPSULE PO PRN (13:54)
[2018-02-20] MEDS: ACETAMINOPHEN 325 MG TABLET (FP) PO PRN (18:54)
[2018-02-20] MEDS: chlordiazePOXIDE 5 MG CAPSULE PO SCH (22:15)
[2018-02-20] MEDS: THIAMINE HCL 100 MG TABLET (FP) PO SCH (22:15)
[2018-02-20] MEDS: ROSUVASTATIN CA 10 MG TABLET (FP) PO SCH (22:15)
[2018-02-20] MEDS: QUEtiapine FUMARATE 100 MG TABLET (FP) PO SCH (22:15)
[2018-02-21] MEDS: chlordiazePOXIDE 5 MG CAPSULE PO SCH ×3 (05:37→17:16)
[2018-02-21] MEDS: PRENATAL VITAMINS W/ FOLIC ACID TABLET (FP) PO SCH (10:20)
[2018-02-21] MEDS: ASPIRIN 81 MG CHEWABLE TABLETS PO SCH (10:20)
[2018-02-21] MEDS: METOPROLOL TARTRATE 25 MG TABLET (FP) PO SCH (10:21)
--- NOTE | 2018-02-21 15:09 | PN ---
[facility] Progress Note (SOAP) Subjective: feeling better less tremor little sweating mild gi distress Objective: 02/21/18 15:08 Vital Signs Temperature 97.8 F 02/21/18 13:11 Pulse Rate 98 H 02/21/18 13:11 Respiratory Rate 20 02/21/18 13:11 Blood Pressure 124/92 02/21/18 13:11 O2 Sat by Pulse Oximetry (%) Laboratory Last Values WBC 5.3 K/mm3 (4.0-10.0) 02/19/18 07:00 RBC 4.62 M/mm3 (4.00-5.60) 02/19/18 07:00 Hgb 15.0 GM/dL (11.7-16.9) 02/19/18 07:00 Hct 45.6 % (35.4-49) 02/19/18 07:00 MCV 98.8 fl (80-96) H 02/19/18 07:00 MCH 32.5 pg (25.7-33.7) 02/19/18 07:00 MCHC 32.9 g/dl (32.0-35.9) 02/19/18 07:00 RDW 14.5 % (11.9-15.9) 02/19/18 07:00 Plt Count 212 K/MM3 (134-434) 02/19/18 07:00 MPV 8.4 fl (7.5-11.1) 02/19/18 07:00 Sodium 143 mmol/L (136-145) 02/19/18 07:00 Potassium 3.8 mmol/L (3.5-5.1) 02/19/18 07:00 Chloride 103 mmol/L (98-107) 02/19/18 07:00 Carbon Dioxide 30 mmol/L (21-32) 02/19/18 07:00 Anion Gap 10 MMOL/L (8-16) 02/19/18 07:00 BUN 13 mg/dL (7-18) 02/19/18 07:00 Creatinine 0.8 mg/dL (0.55-1.3) 02/19/18 07:00 Creat Clearance w eGFR > 60 (>60) 02/19/18 07:00 Random Glucose 84 mg/dL (74-106) 02/19/18 07:00 Calcium 9.5 mg/dL (8.5-10.1) 02/19/18 07:00 Total Bilirubin 1.4 mg/dL (0.2-1) H 02/20/18 07:00 Direct Bilirubin 0.3 mg/dL (0.0-0.2) H 02/20/18 07:00 AST 74 U/L (15-37) H 02/21/18 07:00 ALT 120 U/L (13-61) H 02/20/18 07:00 Alkaline Phosphatase 93 U/L (45-117) 02/20/18 07:00 Total Protein 6.9 g/dl (6.4-8.2) 02/20/18 07:00 Albumin 3.9 g/dl (3.4-5.0) 02/20/18 07:00 Urine Color Straw 02/18/18 11:45 Urine Appearance Clear 02/18/18 11:45 Urine pH 6.0 (5.0-8.0) 02/18/18 11:45 Ur Specific [place] 1.004 (1.010-1.035) L 02/18/18 11:45 Urine Protein Negative (NEGATIVE) 02/18/18 11:45 Urine Glucose (UA) Negative (NEGATIVE) 02/18/18 11:45 Urine Ketones Negative (NEGATIVE) 02/18/18 11:45 Urine Blood Negative (NEGATIVE) 02/18/18 11:45 Urine Nitrite Negative (NEGATIVE) 02/18/18 11:45 Urine Bilirubin Negative (<2.0 mg/dL) 02/18/18 11:45 Urine Urobilinogen Negative mg/dL (0.2-1.0) 02/18/18 11:45 Ur Leukocyte Esterase Negative (NEGATIVE) 02/18/18 11:45 RPR Titer Nonreactive (NONREACTIVE) 02/19/18 07:00 lab noted Assessment: 02/21/18 15:09 mild withdrawal sx Plan: continue detox
[2018-02-21] MEDS: chlordiazePOXIDE HCL 25 MG CAPSULE PO PRN (15:24)
[2018-02-21] MEDS: ROSUVASTATIN CA 10 MG TABLET (FP) PO SCH (22:18)
[2018-02-21] MEDS: QUEtiapine FUMARATE 100 MG TABLET (FP) PO SCH (22:18)
[2018-02-21] MEDS: chlordiazePOXIDE HCL 10 MG CAPSULE PO SCH (22:18)
[2018-02-21] MEDS: THIAMINE HCL 100 MG TABLET (FP) PO SCH (22:18)
[2018-02-22] MEDS: chlordiazePOXIDE HCL 10 MG CAPSULE PO SCH (05:39)
[2018-02-22] MEDS: ASPIRIN 81 MG CHEWABLE TABLETS PO SCH (09:12)
[2018-02-22] MEDS: PRENATAL VITAMINS W/ FOLIC ACID TABLET (FP) PO SCH (09:12)
[2018-02-22] MEDS: METOPROLOL TARTRATE 25 MG TABLET (FP) PO SCH (09:12)
[2018-02-22 09:31] VITALS: BP 114/88; PULSE 105; TEMP 98.9
--- NOTE | 2018-02-22 15:09 | DS ---
[facility] Detox Discharge Summary Admission Date: 02/18/18 Discharge Date: 02/22/18 - History Present History: Alcohol Dependence - Physical Exam Results Vital Signs: Vital Signs Temperature 98.9 F 02/22/18 09:30 Pulse Rate 105 H 02/22/18 09:30 Respiratory Rate 16 02/22/18 09:30 Blood Pressure 114/88 02/22/18 09:30 O2 Sat by Pulse Oximetry (%) Pertinent Admission Physical Exam Findings: Pt completed alcohol detox- says he will go to outpt alcohol groups and AA to help him remain abstinent-Pt states he has all his outpt meds and does not need a reorder - Treatment Hospital Course: Detox Protocol Followed, Detoxed Safely, Responded well, Discharged Condition Good - Medication Discharge Medications: Ambulatory Orders Aspirin [ASA -] 81 mg PO DAILY #30 tab.chew 02/07/17 Olmesartan/Hydrochlorothiazide [Benicar Hct 20-12.5MG Tab -] 1 tab PO DAILY #30 tablet 02/07/17 Quetiapine Fumarate [Seroquel] 100 mg PO HS #30 tablet 01/02/18 Acetaminophen/Caffeine/Butalb [Fioricet -] 1 tab PO Q4H PRN 02/18/18 Metoprolol Succinate [Toprol XL -] 12.5 mg PO DAILY #30 tab.sr.24h 02/21/18 Rosuvastatin Calcium [Crestor] 10 mg PO HS #30 tablet 02/21/18 - Diagnosis (1) Alcohol dependence with uncomplicated withdrawal Status: Acute (2) Essential hypertension Status: Chronic (3) History of abdominal aortic aneurysm (AAA) Status: Chronic (4) History of prostate cancer Status: Chronic (5) Hypercholesterolemia Status: Chronic
== END 2018-02-22 09:42 | disposition home or self-care (01) | DRG 897 ==
LOC: YASAS 13:42 → Y3N 17:20
PROC: HZ2ZZZZ Detoxification Services for Substance Abuse Treatment (ICD-10-PCS; principal; 2018-02-18)
DX: F10.230 Alcohol dependence with withdrawal, uncomplicated (principal); I10 Essential (primary) hypertension; E78.00 Pure hypercholesterolemia, unspecified; Z87.891 Personal history of nicotine dependence; Z85.46 Personal history of malignant neoplasm of prostate; Z86.79 Personal history of other diseases of the circulatory system
CPT/HCPCS: 36415; 80053; 80076; 81003; 84450; 85027; 86593

== ENCOUNTER 2018-05-27 13:33 | Inpatient (IN) | payer OTHER ==
[2018-05-27 15:05] VITALS: BMI 25.8
--- NOTE | 2018-05-27 17:13 | HP ---
CIWA Score Nausea/Vomitin-No Nausea/No Vomiting Muscle Tremors: 2 Anxiety: 4-Mod. Anxious/Guarded Agitation: 4-Moderately Restless Paroxysmal Sweats: 2 Orientation: 0-Oriented Tacttile Disturbances: 1-Very Mild Itch/Numbness Auditory Disturbances: 2-Mild Harshness/Frighten Visual Disturbances: 1-Very Mild Sensitivity Headache: 0-None Present CIWA-Ar Total Score: 16 - Admission Criteria OASAS Guidelines: Admission for Medically Managed Detox: Requires at least one of the followin. CIWA greater than 12 2. Seizures within the past 24 hours 3. Delirium tremens within the past 24 hours 4. Hallucinations within the past 24 hours 5. Acute intervention needed for co occurring medical disorder 6. Acute intervention needed for co occurring psychiatric disorder 7. Severe withdrawal that cannot be handled at a lower level of care (continued vomiting, continued diarrhea, abnormal vital signs) requiring intravenous medication and/or fluids 8. Patient presents the following: CIWA greater than 12, Acute intervention needed for co-occurring med or psych disorder Admission Criteria Met: Admission criteria met Admission ROS [facility] - [facility] Chief Complaint: alcohol withdrawal symptoms Allergies/Adverse Reactions: Allergies Allergy/AdvReac Type Severity Reaction Status Date / Time No Known Allergies Allergy Verified 05/27/18 14:56 History of Present Illness: 57 years old male with hx of alcohol dependence is here seeking detox d/t withdrawal symptoms. Patient c/o of going through the [employer]. Denies hx of seizures, DTS or blackouts. Reports currently using 2 pints of rum per day, with last use today. Med hx: hypertension on med- benicar, aortic aneurysm ( no surgery at this time on metoprolol), depression, insomnia- takes seroquel, migraine headache- fioricet, history of ca of prostate, Last detox February 2018 [facility]. Exam Limitations: No Limitations - Ebola screening Have you traveled outside of the country in the last 21 days: No Have you had contact with anyone from an Ebola affected area: No - Review of Systems Constitutional: Night Sweats, Changes in sleep, Other (irritable) EENT: reports: Hearing Loss (rigth) Respiratory: reports: No Symptoms reported Cardiac: reports: No Symptoms Reported GI: reports: No Symptoms Reported : reports: Frequency Musculoskeletal: reports: No Symptoms Reported Integumentary: reports: Dryness Neuro: reports: Tremors Endocrine: reports: Increased Thirst Hematology: reports: No Symptoms Reported Psychiatric: reports: Orientated x3, Agitated, Anxious Other Systems: Reviewed and Negative Patient History - Patient Medical History Hx Anemia: No Hx Asthma: No Hx Chronic Obstructive Pulmonary Disease (COPD): No Hx Cancer: Yes (Treated for Prostate Ca: 2009 - 2010) Hx Cardiac Disorders: Yes Hx Congestive Heart Failure: No Hx Hypertension: Yes (on meds.) Hx Hypercholesterolemia: Yes (On meds.) Hx Pacemaker: No HX Cerebrovascular Accident: No Hx Seizures: No Hx Dementia: No Hx Diabetes: No Hx Gastrointestinal Disorders: No Hx Liver Disease: No Hx Genitourinary Disorders: No Hx Sexually Transmitted Disorders: No Hx Renal Disease (ESRD): No Hx Thyroid Disease: No Hx Human Immunodeficiency Virus (HIV): No (Never Tested.) Hx Hepatitis C: No (Never Tested.) Hx Depression: Yes Hx Suicide Attempt: No Hx Bipolar Disorder: No Hx Schizophrenia: No - Patient Surgical History Past Surgical History: Yes Hx Neurologic Surgery: No Hx Cataract Extraction: Yes (right eye in 2008/left eye in 2007) Hx Cardiac Surgery: No Hx Lung Surgery: No Hx Breast Surgery: No Hx Breast Biopsy: No Hx Abdominal Surgery: No Hx Appendectomy: No Hx Cholecystectomy: No Hx Genitourinary Surgery: Yes (seed implant for cancer of prostate in 2010) Hx Section: No Hx Orthopedic Surgery: No Other Surgical History: prostate seed implant in 02/2010 Anesthesia Reaction: No - PPD History Previous Implant?: No Documented Results: Negative w/proof Date: 01/03/18 Results: 0 MM PPD to be Administered?: No - Smoking Cessation Smoking history: Former smoker Have you smoked in the past 12 months: No Aproximately how many cigarettes per day: 0 If you are a former smoker, when did you quit?: 12/2008 Cigars Per Day: 0 Hx Chewing Tobacco Use: No Initiated information on smoking cessation: No - Substance & Tx. History Hx Alcohol Use: Yes Hx Substance Use: Yes Substance Use Type: Alcohol Hx Substance Use Treatment: Yes (Detox [facility] February 2018) - Substances abused Alcohol Substance route: Oral Frequency: Daily Amount used: 2 pt. rum Age of first use: 17 Date of last use: 05/27/18 Family Disease History - Family Disease History Family Disease History: [place]: Father (.), Sister ( (Uterine).) Admission Physical Exam [facility] - Vital Signs Vital Signs: Vital Signs - 24 hr 05/27/18 15:01 Temperature 98 F Pulse Rate 80 Respiratory 18 Rate Blood Pressure 140/96 - Physical General Appearance: Yes: Appropriately Dressed, Mild Distress, Tremorous, Irritable, Anxious HEENTM: Yes: Normal ENT Inspection, Normocephalic, Normal Voice, Pharynx Normal , Hearing Decreased (right) Respiratory: Yes: Chest Non-Tender, Lungs Clear, Normal Breath Sounds, No Respiratory Distress, No Accessory Muscle Use Neck: Yes: Within Normal Limits Breast: Yes: Breast Exam Deferred Cardiology: Yes: Regular Rhythm, Regular Rate Abdominal: Yes: Normal Bowel Sounds, Non Tender, Flat, Soft Genitourinary: Yes: Within Normal Limits Back: Yes: Normal Inspection Musculoskeletal: Yes: full range of Motion, Gait Steady, Pelvis Stable Extremities: Yes: Normal Capillary Refill, Normal Inspection Neurological: Yes: invoice 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 intact, Motor Strength 5/5, Normal Mood/Affect Integumentary: Yes: Normal Color, Warm, Diaphoresis Lymphatic: Yes: Within Normal Limits - Diagnostic (1) Insomnia Current Visit: Yes Status: Acute Qualifiers: Insomnia type: unspecified Qualified Code(s): G47.00 - Insomnia, unspecified (2) Essential hypertension Current Visit: Yes Status: Chronic (3) History of abdominal aortic aneurysm (AAA) Current Visit: No Status: Chronic (4) History of prostate cancer Current Visit: Yes Status: Chronic (5) Nicotine dependence Current Visit: Yes Status: Chronic Qualifiers: Nicotine product type: cigarettes Substance use status: uncomplicated Qualified Code(s): F17.210 - Nicotine dependence, cigarettes, uncomplicated (6) Alcohol dependence with uncomplicated withdrawal Current Visit: Yes Status: Acute Cleared for Admission [facility] - Detox or Rehab [facility] Level of Care: Medically Managed Detox Regimen/Protocol: Librium Inpatient Rehab Admission - Rehab Decision to Admit Inpatient rehab admission?: No
[2018-05-27] MEDS ORDERED: MAG HYDROX/AL HYDROX/SIMETH 30 ML UNIT-DOSE CUP PO PRN (17:16)
[2018-05-27] MEDS ORDERED: BISMUTH SUBSALICYLATE 524 MG/30 ML UD PO PRN (17:16)
[2018-05-27] MEDS ORDERED: ACETAMINOPHEN 325 MG TABLET (FP) PO PRN ×2 (17:16)
[2018-05-27] MEDS ORDERED: MELATONIN 5 MG TABLETS PO PRN (17:16)
[2018-05-27] MEDS ORDERED: MAGNESIUM CITRATE 300 ML BOTTLE PO PRN (17:16)
[2018-05-27] MEDS ORDERED: MENTHOL/PHENOL 1 EACH UD MM PRN (17:16)
[2018-05-27] MEDS ORDERED: hydrOXYzine PAMOATE 25 MG CAPSULE (FP) PO PRN (17:16)
[2018-05-27] MEDS ORDERED: MAGNESIUM HYDROX 2400MG/30ML ORAL SUSPENSION 30 ML CUP PO PRN (17:16)
[2018-05-27] MEDS ORDERED: chlordiazePOXIDE HCL 25 MG CAPSULE PO PRN (17:16)
[2018-05-27] MEDS ORDERED: QUEtiapine FUMARATE 50 MG TABLET PO ONE (22:00)
[2018-05-27] MEDS: ROSUVASTATIN CA 10 MG TABLET (FP) PO SCH (22:27)
[2018-05-27] MEDS: THIAMINE HCL 100 MG TABLET (FP) PO SCH (22:27)
[2018-05-27] MEDS: chlordiazePOXIDE HCL 25 MG CAPSULE PO SCH (22:28)
[2018-05-27 23:13] LABS: PH,URINE 5.5 (5.0-8.0); URINE APPEARANCE CLEAR; URINE BILIRUBIN NEGATIVE (NEGATIVE); URINE COLOR YELLOW; URINE GLUCOSE (UA) NEGATIVE (NEGATIVE); URINE KETONE NEGATIVE (NEGATIVE); URINE LEUK ESTERASE NEGATIVE (NEGATIVE); URINE NITRITE NEGATIVE (NEGATIVE); URINE PROTEIN TRACE (NEGATIVE); URINE UROBILINOGEN 0.2 mg/dL (0.2-1.0)
[2018-05-28] MEDS: chlordiazePOXIDE HCL 25 MG CAPSULE PO SCH ×4 (05:46→22:11)
--- NOTE | 2018-05-28 09:23 | CONSULT ---
[facility] Psychiatric Consult - Data Date of interview: 05/28/18 Admission source: Self-referred Identifying data: Mr Bryant is a 58 years old single male, unemployed receing a pension, living alone seeking detox treatment for alcohol Substance Abuse History: Reports history of alcohol use. Refer to addiction counselor's summary for further information Medical History: Significant for hypertension, dyslipidemia, aortic aneurysm, history of treatment for prostate cancer(sugery + radiation including seed implantation) and cataract durgery both eyes. Psychiatric History: Patient is known to auto service writer from a previous encounter on while in rehab in this facility. History remains consistent. He reports receiving psychiatric treatment for depression in his early 20's. Since he claims that he saw 3 different psychiatrists and he was tried on several medications including Ludiomil, Sinequam, Prozac, Zoloft etc. When he saw auto service writer in January 2017, he was prescribed Belsomra prn for insomnia. Denies any psychiatric contact since Denies previous psychiatric hospitalization or suicidal attempt. At present, reports feeling anxious and sleeping poorly Physical/Sexual Abuse/Trauma History: Denies history of verbal, physical or sexual as well as DV relationship. No service Additional Comment: Reports one previous arrests in 1978 on charges of DWI Mental Status Exam - Mental Status Exam Alert and Oriented to: Time, Place, Person Cognitive Function: Fair Patient Appearance: Well Groomed Mood: Anxious Affect: Appropriate Patient Behavior: Cooperative Speech Pattern: Clear Voice Loudness: Normal Thought Process: Intact, Goal Oriented Hallucinations: Denies Suicidal Ideation: Denies Homicidal Ideation: Denies Insight/Judgement: Poor Sleep: Poorly Appetite: Fair Muscle strength/Tone: Normal Gait/Station: Normal Psychiatric Findings - Problem List ([place] 1, 2,3) (1) MDD (major depressive disorder), single episode, in full remission Current Visit: No Status: Chronic (2) Alcohol-induced anxiety disorder Current Visit: Yes Status: Acute (3) Alcohol-induced sleep disorder Current Visit: Yes Status: Acute (4) Alcohol dependence with uncomplicated withdrawal Current Visit: Yes Status: Acute (5) Essential hypertension Current Visit: Yes Status: Chronic (6) Dyslipidemia Current Visit: Yes Status: Chronic (7) Aortic aneurysm Current Visit: Yes Status: Chronic (8) Cataract of both eyes Current Visit: Yes Status: Resolved (9) History of prostate cancer Current Visit: Yes Status: Chronic - Initial Treatment Plan Initial Treatment Plan: 1) Start Belsomra 10 mg po HS prn for insomnia and Vistaril 50 mg Q 4hrs prn for anxiety. 2) Continue inpatient detoxification
[2018-05-28] MEDS: IBUPROFEN 400 MG TABLET (FP) PO PRN ×2 (09:40→17:25)
[2018-05-28] MEDS ORDERED: PATIENT'S OWN MEDICATION (NON-FORMULARY) (Olmesartan/Hydrochlorothiazide [Benicar Hct 20-1 PO SCH (10:00)
[2018-05-28] MEDS: HYDROCHLOROTHIAZIDE 12.5 MG CAPSULE (FP) PO SCH (10:10)
[2018-05-28] MEDS: VALSARTAN 160 MG TABLET (UD) PO SCH (10:10)
[2018-05-28 10:11] LABS: ALBUMIN 3.8 g/dl (3.4-5.0); ALK PHOS 88 U/L (45-117); ANION GAP 7 MMOL/L (8-16); BLOOD UREA NITROGEN 10 mg/dL (7-18); CALCIUM 9.3 mg/dL (8.5-10.1); CHLORIDE 105 mmol/L (98-107); CO2 29 mmol/L (21-32); CREATININE 0.9 mg/dL (0.55-1.3); GLUCOSE,RANDOM 90 mg/dL (74-106); POTASSIUM 3.9 mmol/L (3.5-5.1); SGOT/AST 117 U/L (15-37); SGPT/ALT 81 U/L (13-61); SODIUM 141 mmol/L (136-145); TOT PROT 7.2 g/dl (6.4-8.2)
[2018-05-28] MEDS: metoPROLOL SUCCINATE 25 MG TAB.SR.24H (FP) PO SCH (10:11)
[2018-05-28] MEDS: PRENATAL VITAMINS W/ FOLIC ACID TABLET (FP) PO SCH (10:11)
[2018-05-28] MEDS: ASPIRIN 81 MG CHEWABLE TABLETS PO SCH (10:11)
[2018-05-28 10:15] LABS: HEMOGLOBIN 14.1 GM/dL (11.7-16.9); MCH 34.7 pg (25.7-33.7); MCHC 34.4 g/dl (32.0-35.9); MEAN CELL VOLUME 100.9 fl (80-96); MEAN PLT VOLUME 8.6 fl (7.5-11.1); PLATELET COUNT 208 K/MM3 (134-434); RBC 4.06 M/mm3 (4.00-5.60); RDW 16.6 % (11.9-15.9); WHITE BLOOD COUNT 3.9 K/mm3 (4.0-10.0)
--- NOTE | 2018-05-28 10:50 | PN ---
S CIWA - CIWA Score Nausea/Vomitin-No Nausea/No Vomiting Muscle Tremors: 3 Anxiety: 3 Agitation: 1-Slight > Activity Paroxysmal Sweats: No Perspiration Orientation: 0-Oriented Tacttile Disturbances: 3-Moderate Itch/Numb/Burn Auditory Disturbances: 2-Mild Harshness/Frighten Visual Disturbances: 1-Very Mild Sensitivity Headache: 0-None Present CIWA-Ar Total Score: 13 [facility] Progress Note (SOAP) Subjective: Body Aches, Anxious, Tremors. Objective: PATIENT A & O X 3, OBSERVED AMBULATING ON UNIT. IN NO ACUTE DISTRESS. PATIENT DENIES CHEST PAIN. 05/28/18 10:46 Vital Signs Temperature 98.4 F 05/28/18 09:10 Pulse Rate 101 H 05/28/18 09:10 Respiratory Rate 18 05/28/18 09:10 Blood Pressure 106/82 05/28/18 09:10 O2 Sat by Pulse Oximetry (%) Laboratory Tests 05/27/18 05/28/18 05/28/18 17:56 07:00 07:00 WBC 3.9 L RBC 4.06 Hgb 14.1 Hct 41.0 MCV 100.9 H MCH 34.7 H MCHC 34.4 RDW 16.6 H Plt Count 208 MPV 8.6 Sodium 141 Potassium 3.9 Chloride 105 Carbon Dioxide 29 Anion Gap 7 L BUN 10 Creatinine 0.9 Creat Clearance w eGFR 86.08 Random Glucose 90 Calcium 9.3 Total Bilirubin 1.0 AST 117 H ALT 81 H Alkaline Phosphatase 88 Total Protein 7.2 Albumin 3.8 Urine Color Yellow Urine Appearance Clear Urine pH 5.5 Ur Specific [place] 1.007 L Urine Protein Trace Urine Glucose (UA) Negative Urine Ketones Negative Urine Blood Negative Urine Nitrite Negative Urine Bilirubin Negative Urine Urobilinogen 0.2 Ur Leukocyte Esterase Negative LABS NOTED. RPR RESULT PENDING. 05/28/18 10:49 Assessment: 05/28/18 10:48 WITHDRAWAL SYMPTOMS. Plan: CONTINUE DETOX. PRN BACLOFEN FOR BODY ACHES / MUSCLE SPASMS.
[2018-05-28] MEDS: BACLOFEN 10 MG TABLET (FP) PO PRN ×2 (11:25→19:29)
[2018-05-28] MEDS ORDERED: VALSARTAN 160 MG TABLET (UD) PO ONE (14:15)
[2018-05-28] MEDS ORDERED: metoPROLOL SUCCINATE 25 MG TAB.SR.24H (FP) PO ONE (14:15)
--- NOTE | 2018-05-28 14:43 | PN ---
S Progress Note Note: Patient's BP in Afternoon: Left: 149/103; R: 149/100. Previously Scheduled doses of Diovan, 160 mg PO and of Toprol X, 12.5 mg PO held earlier on in day due to fact that Patient's BP was low. One-Time dose of both medications ordered now as replacement. Toby Albert NP.
[2018-05-28] MEDS: THIAMINE HCL 100 MG TABLET (FP) PO SCH (22:11)
[2018-05-28] MEDS: ROSUVASTATIN CA 10 MG TABLET (FP) PO SCH (22:12)
[2018-05-28] MEDS ORDERED: cloNIDine HCL 0.1 MG TABLET PO ONE (23:00)
[2018-05-29] MEDS: chlordiazePOXIDE HCL 25 MG CAPSULE PO SCH ×3 (06:06→17:31)
[2018-05-29] MEDS: PRENATAL VITAMINS W/ FOLIC ACID TABLET (FP) PO SCH (10:23)
[2018-05-29] MEDS: ASPIRIN 81 MG CHEWABLE TABLETS PO SCH (10:23)
[2018-05-29] MEDS: VALSARTAN 160 MG TABLET (UD) PO SCH (10:24)
[2018-05-29] MEDS: metoPROLOL SUCCINATE 25 MG TAB.SR.24H (FP) PO SCH (10:24)
[2018-05-29] MEDS: HYDROCHLOROTHIAZIDE 12.5 MG CAPSULE (FP) PO SCH (10:24)
--- NOTE | 2018-05-29 11:04 | PN ---
[facility] CIWA - CIWA Score Nausea/Vomitin-No Nausea/No Vomiting Muscle Tremors: 3 Anxiety: 2 Agitation: 3 Paroxysmal Sweats: 3 Orientation: 0-Oriented Tacttile Disturbances: 0-None Auditory Disturbances: 0-None Visual Disturbances: 0-None Headache: 0-None Present CIWA-Ar Total Score: 11 S Progress Note (SOAP) Subjective: sweats shakes body aches irritable interrupted sleep Objective: 05/29/18 11:03 Vital Signs Temperature 98.2 F 05/29/18 09:28 Pulse Rate 74 05/29/18 09:28 Respiratory Rate 18 05/29/18 09:28 Blood Pressure 112/68 05/29/18 09:28 O2 Sat by Pulse Oximetry (%) Laboratory Tests 05/27/18 05/28/18 05/28/18 17:56 07:00 07:00 WBC 3.9 L RBC 4.06 Hgb 14.1 Hct 41.0 MCV 100.9 H MCH 34.7 H MCHC 34.4 RDW 16.6 H Plt Count 208 MPV 8.6 Sodium 141 Potassium 3.9 Chloride 105 Carbon Dioxide 29 Anion Gap 7 L BUN 10 Creatinine 0.9 Creat Clearance w eGFR 86.08 Random Glucose 90 Calcium 9.3 Total Bilirubin 1.0 AST 117 H ALT 81 H Alkaline Phosphatase 88 Total Protein 7.2 Albumin 3.8 Urine Color Yellow Urine Appearance Clear Urine pH 5.5 Ur Specific [place] 1.007 L Urine Protein Trace Urine Glucose (UA) Negative Urine Ketones Negative Urine Blood Negative Urine Nitrite Negative Urine Bilirubin Negative Urine Urobilinogen 0.2 Ur Leukocyte Esterase Negative RPR Titer 05/28/18 07:00 WBC RBC Hgb Hct MCV MCH MCHC RDW Plt Count MPV Sodium Potassium Chloride Carbon Dioxide Anion Gap BUN Creatinine Creat Clearance w eGFR Random Glucose Calcium Total Bilirubin AST ALT Alkaline Phosphatase Total Protein Albumin Urine Color Urine Appearance Urine pH Ur Specific [place] Urine Protein Urine Glucose (UA) Urine Ketones Urine Blood Urine Nitrite Urine Bilirubin Urine Urobilinogen Ur Leukocyte Esterase RPR Titer Nonreactive aaox3 ambulating no acute distress Assessment: 05/29/18 11:03 withdrawal sx Plan: continue detox increase fluids
[2018-05-29] MEDS: BACLOFEN 10 MG TABLET (FP) PO PRN (12:13)
[2018-05-29] MEDS: hydrOXYzine PAMOATE 50 MG CAPSULE (FP) PO PRN ×2 (12:14→19:57)
[2018-05-29] MEDS: chlordiazePOXIDE HCL 10 MG CAPSULE PO SCH (22:13)
[2018-05-29] MEDS: THIAMINE HCL 100 MG TABLET (FP) PO SCH (22:13)
[2018-05-29] MEDS: SUVOREXANT 10 MG TABLET PO PRN (22:14)
[2018-05-29] MEDS: ROSUVASTATIN CA 10 MG TABLET (FP) PO SCH (22:37)
[2018-05-29] MEDS ORDERED: chlordiazePOXIDE HCL 10 MG CAPSULE PO PRN (23:00)
[2018-05-30] MEDS: chlordiazePOXIDE HCL 10 MG CAPSULE PO SCH ×3 (05:45→16:31)
[2018-05-30] MEDS: BACLOFEN 10 MG TABLET (FP) PO PRN ×2 (05:47→16:31)
[2018-05-30] MEDS: IBUPROFEN 400 MG TABLET (FP) PO PRN (08:38)
[2018-05-30] MEDS: ASPIRIN 81 MG CHEWABLE TABLETS PO SCH (10:16)
[2018-05-30] MEDS: PRENATAL VITAMINS W/ FOLIC ACID TABLET (FP) PO SCH (10:16)
[2018-05-30] MEDS: HYDROCHLOROTHIAZIDE 12.5 MG CAPSULE (FP) PO SCH (10:16)
[2018-05-30] MEDS: metoPROLOL SUCCINATE 25 MG TAB.SR.24H (FP) PO SCH (10:17)
[2018-05-30] MEDS: VALSARTAN 160 MG TABLET (UD) PO SCH (10:17)
[2018-05-30] MEDS: hydrOXYzine PAMOATE 50 MG CAPSULE (FP) PO PRN (10:19)
--- NOTE | 2018-05-30 14:48 | PN ---
S CIWA - CIWA Score Nausea/Vomitin-No Nausea/No Vomiting Muscle Tremors: 2 Anxiety: 2 Agitation: 1-Slight > Activity Paroxysmal Sweats: 2 Orientation: 0-Oriented Tacttile Disturbances: 1-Very Mild Itch/Numbness Auditory Disturbances: 0-None Visual Disturbances: 1-Very Mild Sensitivity Headache: 0-None Present CIWA-Ar Total Score: 9 BHS Progress Note (SOAP) Subjective: Tremors, Sweating, Body Aches, Interrupted Sleep. Objective: PATIENT A & O X 3, OBSERVED AMBULATING ON UNIT. IN NO ACUTE DISTRESS. 05/30/18 14:49 Vital Signs Temperature 98.2 F 05/30/18 14:14 Pulse Rate 77 05/30/18 14:14 Respiratory Rate 18 05/30/18 14:14 Blood Pressure 138/95 05/30/18 14:14 O2 Sat by Pulse Oximetry (%) Laboratory Tests 05/27/18 05/28/18 05/28/18 17:56 07:00 07:00 WBC 3.9 L RBC 4.06 Hgb 14.1 Hct 41.0 MCV 100.9 H MCH 34.7 H MCHC 34.4 RDW 16.6 H Plt Count 208 MPV 8.6 Sodium 141 Potassium 3.9 Chloride 105 Carbon Dioxide 29 Anion Gap 7 L BUN 10 Creatinine 0.9 Creat Clearance w eGFR 86.08 Random Glucose 90 Calcium 9.3 Total Bilirubin 1.0 AST 117 H ALT 81 H Alkaline Phosphatase 88 Total Protein 7.2 Albumin 3.8 Urine Color Yellow Urine Appearance Clear Urine pH 5.5 Ur Specific [place] 1.007 L Urine Protein Trace Urine Glucose (UA) Negative Urine Ketones Negative Urine Blood Negative Urine Nitrite Negative Urine Bilirubin Negative Urine Urobilinogen 0.2 Ur Leukocyte Esterase Negative RPR Titer 05/28/18 05/29/18 07:00 07:00 WBC RBC Hgb Hct MCV MCH MCHC RDW Plt Count MPV Sodium Potassium Chloride Carbon Dioxide Anion Gap BUN Creatinine Creat Clearance w eGFR Random Glucose Calcium Total Bilirubin AST 80 H ALT Alkaline Phosphatase Total Protein Albumin Urine Color Urine Appearance Urine pH Ur Specific [place] Urine Protein Urine Glucose (UA) Urine Ketones Urine Blood Urine Nitrite Urine Bilirubin Urine Urobilinogen Ur Leukocyte Esterase RPR Titer Nonreactive LABS NOTED. RESULT OF REPEAT AST NOTED. MODERATE REDUCTION IN LEVEL NOTED ON REPEAT ASSESSMENT. 05/30/18 14:50 Assessment: 05/30/18 14:50 WITHDRAWAL SYMPTOMS. ELEVATED LIVER ENZYMES. 05/30/18 14:50 Plan: CONTINUE DETOX. PATIENT SCHEDULED FOR D/C TOMORROW. PER PHAMRACIST AT PATIENT'S PHARMACY ([facility], [place], [place]), PATIENT CURRENTLY HAS 1 REFILL OF TOPROL XL READY TO BE PICKED BY HIM WHEN HE WISHES. PATIENT EARLIER REPORTED THAT HE CURRENTLY HAS ADEQUATE SUPPLIES OF ALL OTHER PRESCRIBED HOME (OUTPATIENT) MEDICATIONS AT HOME.
[2018-05-30] MEDS: THIAMINE HCL 100 MG TABLET (FP) PO SCH (22:07)
[2018-05-30] MEDS: SUVOREXANT 10 MG TABLET PO PRN (22:08)
[2018-05-30] MEDS: ROSUVASTATIN CA 10 MG TABLET (FP) PO SCH (22:35)
[2018-05-30] MEDS ORDERED: chlordiazePOXIDE HCL 10 MG CAPSULE PO SCH (23:00)
[2018-05-31 06:42] VITALS: BP 117/84; PULSE 78; TEMP 97.9
--- NOTE | 2018-05-31 15:53 | DS ---
[facility] Detox Discharge Summary Admission Date: 05/27/18 Discharge Date: 05/31/18 - History Present History: Alcohol Dependence Pertinent Past History: 57 years old male with hx of alcohol dependence is completed detox - Physical Exam Results Vital Signs: Vital Signs Temperature 97.9 F 05/31/18 06:00 Pulse Rate 78 05/31/18 06:00 Respiratory Rate 18 05/31/18 06:00 Blood Pressure 117/84 05/31/18 06:00 O2 Sat by Pulse Oximetry (%) - Treatment Hospital Course: Detox Protocol Followed, Detoxed Safely, Responded well, Discharged Condition Good - Medication Discharge Medications: Ambulatory Orders Aspirin [ASA -] 81 mg PO DAILY #30 tab.chew 02/07/17 Olmesartan/Hydrochlorothiazide [Benicar Hct 20-12.5MG Tab -] 1 tab PO DAILY #30 tablet 02/07/17 Quetiapine Fumarate [Seroquel] 100 mg PO HS #30 tablet 01/02/18 Acetaminophen/Caffeine/Butalb [Fioricet -] 1 tab PO Q4H PRN 02/18/18 Metoprolol Succinate [Toprol XL -] 12.5 mg PO DAILY #30 tab.sr.24h 02/21/18 Rosuvastatin Calcium [Crestor] 10 mg PO HS #30 tablet 02/21/18
== END 2018-05-31 09:00 | disposition home or self-care (01) | DRG 897 ==
LOC: YASAS 13:33 → Y6N 17:56
PROVIDERS: ADMIT Surgery; ATTEND Surgery
PROC: HZ2ZZZZ Detoxification Services for Substance Abuse Treatment (ICD-10-PCS; principal; 2018-05-27)
DX: F10.230 Alcohol dependence with withdrawal, uncomplicated (principal); F10.280 Alcohol dependence with alcohol-induced anxiety disorder; F10.282 Alcohol dependence with alcohol-induced sleep disorder; F32.5 Major depressive disorder, single episode, in full remission; I10 Essential (primary) hypertension; E78.5 Hyperlipidemia, unspecified; G47.00 Insomnia, unspecified; R94.5 Abnormal results of liver function studies; Z85.46 Personal history of malignant neoplasm of prostate; Z86.79 Personal history of other diseases of the circulatory system; Z92.3 Personal history of irradiation; Z87.891 Personal history of nicotine dependence
CPT/HCPCS: 36415; 80053; 81003; 84450; 85027; 86593; J0475; J0735

== ENCOUNTER 2018-06-19 15:04 | Inpatient (IN) | payer BC, OTHER ==
[2018-06-19 16:31] VITALS: BMI 28.1
--- NOTE | 2018-06-19 18:30 | HP ---
CIWA Score Nausea/Vomitin-Int. Nausea w/Dry Heave Muscle Tremors: 4-Moderate,w/Arms Extend Anxiety: 1-Mildly Anxious Agitation: 1-Slight > Activity Paroxysmal Sweats: 3 (Increased facial moisture) Orientation: 0-Oriented Tacttile Disturbances: 0-None Auditory Disturbances: 0-None Visual Disturbances: 0-None Headache: 0-None Present CIWA-Ar Total Score: 13 - Admission Criteria OASAS Guidelines: Admission for Medically Managed Detox: Requires at least one of the followin. CIWA greater than 12 2. Seizures within the past 24 hours 3. Delirium tremens within the past 24 hours 4. Hallucinations within the past 24 hours 5. Acute intervention needed for co occurring medical disorder 6. Acute intervention needed for co occurring psychiatric disorder 7. Severe withdrawal that cannot be handled at a lower level of care (continued vomiting, continued diarrhea, abnormal vital signs) requiring intravenous medication and/or fluids 8. Patient presents the following: CIWA greater than 12 Admission Criteria Met: Admission criteria met Admission ROS [facility] Chief Complaint: Having shakes. Allergies/Adverse Reactions: Allergies Allergy/AdvReac Type Severity Reaction Status Date / Time No Known Allergies Allergy Verified 06/19/18 16:25 History of Present Illness: 58 year old male with hx of alcohol dependence is here seeking detox r/t withdrawal symptoms. Reports currently ETOH use is 1 pints of rum per day, with last use today. ASHLEY 0.278 on arrival. 2 hours later, now ASHLEY 0.123 Alcohol use since age 17. Last detox May 27, 2018 [facility]. Patient states remained sober for 4 days after last detox. Discussed patients' frequent visits and need for follow-up w/ recommendations for community support. States he will f/u this time because is "SIck and tired of being sick and tired." Denies hx of seizures, DTS or blackouts. PMHx: Hypertension, Aortic aneurysm, Migraine headache, Ca of prostate (Tx'd) [facility] EKGon 01/01/18: NSR w/ low voltage. MHHx: Insomnia, anxiety - states both rx'd w/ seroquel. Denies depression. Denies thoughts of harming self or others. Patient Name: Roberto Bryant Date: 1960 Address: [address] [place] [address] Sex: Male Rx Written Rx Dispensed Drug Quantity Days Supply Prescriber Name 11/07/2017 11/07/2017 alprazolam 1 mg tablet 60 30 Rere Lema MD 08/27/2017 08/27/2017 alprazolam 1 mg tablet 30 15 Karly Rubio MD 07/04/2017 07/04/2017 alprazolam 1 mg tablet 30 15 Karly Rubio MD Exam Limitations: No Limitations - Ebola screening Have you traveled outside of the country in the last 21 days: No (N) Have you had contact with anyone from an Ebola affected area: No Have you been sick,other than usual withdrawal symptoms: No (Denies recent exposure to measles) Do you have a fever: No - Review of Systems Constitutional: Diaphoresis (Increased facial moisture), Changes in sleep ( Difficulty staying asleep) EENT: reports: Cataracts (Hx bilateral Cataract extractions), Blurred Vision Respiratory: reports: No Symptoms reported Cardiac: reports: No Symptoms Reported GI: reports: No Symptoms Reported : reports: Frequency (2-3 x/night nocturia) Musculoskeletal: reports: Back Pain (Hx LBP. Pain is usually achy. Denies pain at this time. Back increases when siting too long. Laying and stretching back or walking improves.) Integumentary: reports: No Symptoms Reported Neuro: reports: No Symptoms reported Endocrine: reports: No Symptoms Reported Hematology: reports: No Symptoms Reported Psychiatric: reports: Judgement Intact, Orientated x3 Patient History - Patient Medical History Hx Anemia: No Hx Asthma: No Hx Chronic Obstructive Pulmonary Disease (COPD): No Hx Cancer: Yes (Treated for Prostate Ca: 2009 - 2010) Hx Cardiac Disorders: Yes Hx Congestive Heart Failure: No Hx Hypertension: Yes (on meds.) Hx Hypercholesterolemia: Yes (On meds.) Hx Pacemaker: No HX Cerebrovascular Accident: No Hx Seizures: No Hx Dementia: No Hx Diabetes: No Hx Gastrointestinal Disorders: No Hx Liver Disease: No Hx Genitourinary Disorders: No Hx Sexually Transmitted Disorders: No Hx Renal Disease (ESRD): No Hx Thyroid Disease: No Hx Human Immunodeficiency Virus (HIV): No (Never Tested.) Hx Hepatitis C: No (Never Tested.) Hx Depression: Yes Hx Suicide Attempt: No Hx Bipolar Disorder: No Hx Schizophrenia: No - Patient Surgical History Past Surgical History: Yes Hx Neurologic Surgery: No Hx Cataract Extraction: Yes (right eye in 2008/left eye in 2007) Hx Cardiac Surgery: No Hx Lung Surgery: No Hx Breast Surgery: No Hx Breast Biopsy: No Hx Abdominal Surgery: No Hx Appendectomy: No Hx Cholecystectomy: No Hx Genitourinary Surgery: Yes (seed implant for cancer of prostate in 2010) Hx Section: No Hx Orthopedic Surgery: No Other Surgical History: prostate seed implant in 02/2010 Anesthesia Reaction: No - PPD History Previous Implant?: Yes Documented Results: Negative w/proof Implanted On Prior [facility] Admission?: Yes Date: 01/03/18 Results: 0 MM PPD to be Administered?: No - Smoking Cessation Smoking history: Former smoker Have you smoked in the past 12 months: No Aproximately how many cigarettes per day: 0 If you are a former smoker, when did you quit?: 12/2008 Cigars Per Day: 0 Hx Chewing Tobacco Use: No Initiated information on smoking cessation: No - Substance & Tx. History Hx Alcohol Use: Yes Hx Substance Use: Yes Substance Use Type: Alcohol Hx Substance Use Treatment: Yes (detox, rehabs) - Substances abused Alcohol Substance route: Oral Frequency: Daily Amount used: 1 pt rum Age of first use: 17 Date of last use: 06/19/18 Family Disease History - Family Disease History Family Disease History: CA: Father (.), Sister ( (Uterine).) Admission Physical Exam S - Vital Signs Vital Signs: Vital Signs - 24 hr 06/19/18 16:25 Temperature 99.3 F Pulse Rate 103 H Respiratory 20 Rate Blood Pressure 133/86 - Physical General Appearance: Yes: Nourished, Mild Distress, Tremorous (At rest and grossly increases w/ arm lift) HEENTM: Yes: EOMI (Jerking movements of eyes upon lateral gaze), Hearing grossly Normal, Normocephalic, Normal Voice, JOSE, Pharynx Normal Respiratory: Yes: Lungs Clear, Normal Breath Sounds, No Respiratory Distress Neck: Yes: No masses,lesions,Nodules, Supple Breast: Yes: Breast Exam Deferred Cardiology: Yes: Regular Rhythm, Regular Rate, S1, S2 Abdominal: Yes: Non Tender, Soft, Increased Bowel Sounds, Protuberent (Slight increase in abdominal adiposity) Genitourinary: Yes: Within Normal Limits Back: Yes: Normal Inspection Musculoskeletal: Yes: full range of Motion, Gait Steady Extremities: Yes: Normal Capillary Refill, Non-Tender, Tremors (At rest and grossly increases w/ arm lift) Neurological: Yes: nurse tech II-XII NML intact (Jerking movements of eyes upon lateral gaze), Fully Oriented, Alert, Motor Strength 5/5 Integumentary: Yes: Normal Color, Dry, Warm Lymphatic: Yes: Within Normal Limits - Diagnostic (1) Hx of bilateral cataract extraction Current Visit: Yes Status: Chronic (2) Nocturia Current Visit: Yes Status: Chronic (3) Alcohol dependence with uncomplicated withdrawal Current Visit: Yes Status: Acute (4) Insomnia Current Visit: Yes Status: Chronic Qualifiers: Insomnia type: unspecified Qualified Code(s): G47.00 - Insomnia, unspecified (5) Dyslipidemia Current Visit: Yes Status: Chronic (6) Essential hypertension Current Visit: Yes Status: Chronic (7) History of abdominal aortic aneurysm (AAA) Current Visit: No Status: Chronic (8) Nystagmus Current Visit: Yes Status: Acute (9) History of prostate cancer Current Visit: No Status: Chronic Cleared for Admission [facility] - Detox or Rehab [facility] Level of Care: Medically Managed Detox Regimen/Protocol: Librium Claeared for Rehab Admission: No Urine Drug Screen - Test Device Lot number: [id number] Expiration date: 05/12/19 - Control Is test valid?: Yes - Results Drug screen NEGATIVE: No Urine drug screen results: BAR-Barbiturates, BZO-Benzodiazepines Inpatient Rehab Admission - Rehab Decision to Admit Inpatient rehab admission?: No
[2018-06-19] MEDS ORDERED: chlordiazePOXIDE HCL 25 MG CAPSULE PO PRN (21:06)
[2018-06-19] MEDS ORDERED: MAGNESIUM CITRATE 300 ML BOTTLE PO PRN (21:06)
[2018-06-19] MEDS ORDERED: ACETAMINOPHEN 325 MG TABLET (FP) PO PRN ×2 (21:06)
[2018-06-19] MEDS ORDERED: IBUPROFEN 400 MG TABLET (FP) PO PRN (21:06)
[2018-06-19] MEDS ORDERED: PROCHLORPERAZINE MALEATE 5 MG TABLET PO PRN (21:06)
[2018-06-19] MEDS ORDERED: BISMUTH SUBSALICYLATE 524 MG/30 ML UD PO PRN (21:06)
[2018-06-19] MEDS ORDERED: chlordiazePOXIDE HCL 25 MG CAPSULE PO ONE (21:06)
[2018-06-19] MEDS ORDERED: guaiFENesin 200 MG/10 ML 10 ML UNIT-DOSE CUPS PO PRN (21:06)
[2018-06-19] MEDS ORDERED: MENTHOL/PHENOL 1 EACH UD MM PRN (21:06)
[2018-06-19] MEDS ORDERED: MAG HYDROX/AL HYDROX/SIMETH 30 ML UNIT-DOSE CUP PO PRN (21:06)
[2018-06-19] MEDS ORDERED: MAGNESIUM HYDROX 2400MG/30ML ORAL SUSPENSION 30 ML CUP PO PRN (21:06)
[2018-06-19] MEDS: chlordiazePOXIDE HCL 25 MG CAPSULE PO SCH (22:09)
[2018-06-19] MEDS: THIAMINE HCL 100 MG TABLET (FP) PO SCH (22:09)
[2018-06-19] MEDS ORDERED: QUEtiapine FUMARATE 50 MG TABLET PO ONE (23:00)
[2018-06-19] MEDS: ROSUVASTATIN CA 10 MG TABLET (FP) PO SCH (23:44)
[2018-06-20] MEDS: chlordiazePOXIDE HCL 25 MG CAPSULE PO SCH ×4 (06:35→22:16)
[2018-06-20 09:40] LABS: HEMATOCRIT 41.2 % (35.4-49); HEMOGLOBIN 13.9 GM/dL (11.7-16.9); MCH 34.1 pg (25.7-33.7); MCHC 33.8 g/dl (32.0-35.9); MEAN CELL VOLUME 100.7 fl (80-96); MEAN PLT VOLUME 9.1 fl (7.5-11.1); PLATELET COUNT 177 K/MM3 (134-434); RBC 4.09 M/mm3 (4.00-5.60); RDW 14.9 % (11.9-15.9); WHITE BLOOD COUNT 4.7 K/mm3 (4.0-10.0)
[2018-06-20 09:55] LABS: ALBUMIN 3.7 g/dl (3.4-5.0); BILIRUBIN,TOTAL 0.9 mg/dL (0.2-1); CALCIUM 9.6 mg/dL (8.5-10.1); CREATININE 0.7 mg/dL (0.55-1.3); POTASSIUM 3.9 mmol/L (3.5-5.1); TOT PROT 6.8 g/dl (6.4-8.2)
[2018-06-20] MEDS ORDERED: PATIENT'S OWN MEDICATION (NON-FORMULARY) (Olmesartan/Hydrochlorothiazide [Benicar Hct 20-1 PO SCH (10:00)
[2018-06-20] MEDS: PRENATAL VITAMINS W/ FOLIC ACID TABLET (FP) PO SCH (10:25)
[2018-06-20] MEDS: HYDROCHLOROTHIAZIDE 12.5 MG CAPSULE (FP) PO SCH (10:25)
[2018-06-20] MEDS: ASPIRIN 81 MG CHEWABLE TABLETS PO SCH (10:25)
[2018-06-20] MEDS: metoPROLOL SUCCINATE 25 MG TAB.SR.24H (FP) PO SCH (10:26)
[2018-06-20] MEDS: VALSARTAN 160 MG TABLET (UD) PO SCH (10:26)
--- NOTE | 2018-06-20 10:50 | CONSULT ---
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 History remains consistent. He reports receiving psychiatric treatment for depression in his early 20's. Claims that in the span of these years, he saw 3 different psychiatrists and he was tried on several medications including Ludiomil, Sinequam, Prozac, Zoloft etc. Most recent outpatient treatment was approximately 30 years ago. However, he has had mutiple psychiatric contact during admissions in this facility. At most recent one from 05/27/18 to 05/31/18, he saw insurance underwriter sales and he was prescribed Belsomra 10 mg po HS prn for insomnia and he responded weel to it. Denies previous psychiatric hospitalization or suicidal attempt. At present, reports feeling anxious but sleeping poorly Physical/Sexual Abuse/Trauma History: Denies history of emotional, physical or sexual abuse as wellas DV relationship Additional Comment: Reports one previous arrest for DWI years ago Mental Status Exam - Mental Status Exam Alert and Oriented to: Time, Place, Person Cognitive Function: Fair Patient Appearance: Well Groomed Mood: Anxious Affect: Appropriate Patient Behavior: Cooperative Speech Pattern: Clear Voice Loudness: Normal Thought Process: Intact, Goal Oriented Hallucinations: Denies Suicidal Ideation: Denies Homicidal Ideation: Denies Insight/Judgement: Poor Sleep: Poorly Appetite: Fair Muscle strength/Tone: Normal Gait/Station: Normal Psychiatric Findings - Problem List ([place] 1, 2,3) (1) MDD (major depressive disorder) Current Visit: No Status: Chronic (2) Alcohol-induced anxiety disorder Current Visit: Yes Status: Acute (3) Alcohol-induced sleep disorder Current Visit: Yes Status: Acute (4) Alcohol dependence with uncomplicated withdrawal Current Visit: Yes Status: Acute (5) Dyslipidemia Current Visit: Yes Status: Chronic (6) Essential hypertension Current Visit: Yes Status: Chronic (7) Hx of bilateral cataract extraction Current Visit: Yes Status: Resolved (8) Aortic aneurysm Current Visit: No Status: Chronic (9) History of prostate cancer Current Visit: No Status: Resolved - Initial Treatment Plan Initial Treatment Plan: 1) Start Belsomra 10 mg po HS prn for insomnia. 2) Continue inpatient detoxification
--- NOTE | 2018-06-20 11:06 | PN ---
S CIWA - CIWA Score Nausea/Vomitin-No Nausea/No Vomiting Muscle Tremors: 3 Anxiety: 3 Agitation: 3 Paroxysmal Sweats: 3 Orientation: 0-Oriented Tacttile Disturbances: 0-None Auditory Disturbances: 0-None Visual Disturbances: 0-None Headache: 0-None Present CIWA-Ar Total Score: 12 [facility] Progress Note (SOAP) Subjective: sweats chills shakes interrupted sleep body aches irritable Objective: 06/20/18 11:06 Vital Signs Temperature 98.2 F 06/20/18 09:21 Pulse Rate 76 06/20/18 09:21 Respiratory Rate 18 06/20/18 09:21 Blood Pressure 131/94 06/20/18 09:21 O2 Sat by Pulse Oximetry (%) Laboratory Tests 06/20/18 06/20/18 07:00 07:00 WBC 4.7 RBC 4.09 Hgb 13.9 Hct 41.2 MCV 100.7 H MCH 34.1 H MCHC 33.8 RDW 14.9 D Plt Count 177 MPV 9.1 Sodium 139 Potassium 3.9 Chloride 104 Carbon Dioxide 31 Anion Gap 5 L BUN 10 Creatinine 0.7 Est GFR (CKD-EPI)AfAm 118.88 Est GFR (CKD-EPI)NonAf 102.57 Random Glucose 83 Calcium 9.6 Total Bilirubin 0.9 AST 90 H ALT 77 H Alkaline Phosphatase 76 Total Protein 6.8 Albumin 3.7 aaox3 ambulating no acute distress Assessment: 06/20/18 11:21 withdrawal sx Plan: continue detox increase fluids
[2018-06-20] MEDS ORDERED: SUVOREXANT 10 MG TABLET PO PRN (22:00)
[2018-06-20] MEDS: ROSUVASTATIN CA 10 MG TABLET (FP) PO SCH (22:11)
[2018-06-20] MEDS: THIAMINE HCL 100 MG TABLET (FP) PO SCH (22:11)
[2018-06-21] MEDS: chlordiazePOXIDE HCL 25 MG CAPSULE PO SCH ×3 (05:36→17:56)
--- NOTE | 2018-06-21 09:57 | PN ---
S Progress Note Note: Patient reports sleeping poorly despite taking Belsomra 10 mg at bedtime. Belsomra dosage increased to 20 mg po HS prn for insomnia
[2018-06-21] MEDS: ASPIRIN 81 MG CHEWABLE TABLETS PO SCH (10:14)
[2018-06-21] MEDS: PRENATAL VITAMINS W/ FOLIC ACID TABLET (FP) PO SCH (10:14)
--- NOTE | 2018-06-21 10:34 | PN ---
S CIWA - CIWA Score Nausea/Vomitin-No Nausea/No Vomiting Muscle Tremors: 3 Anxiety: 2 Agitation: 2 Paroxysmal Sweats: 3 Orientation: 0-Oriented Tacttile Disturbances: 0-None Auditory Disturbances: 0-None Visual Disturbances: 0-None Headache: 0-None Present CIWA-Ar Total Score: 10 BHS Progress Note (SOAP) Subjective: body aches sweats shakes Objective: 06/21/18 10:33 Vital Signs Temperature 98.2 F 06/21/18 09:53 Pulse Rate 87 06/21/18 09:53 Respiratory Rate 18 06/21/18 09:53 Blood Pressure 107/75 06/21/18 09:53 O2 Sat by Pulse Oximetry (%) Laboratory Tests 06/20/18 06/20/18 06/20/18 07:00 07:00 07:00 WBC 4.7 RBC 4.09 Hgb 13.9 Hct 41.2 MCV 100.7 H MCH 34.1 H MCHC 33.8 RDW 14.9 D Plt Count 177 MPV 9.1 Sodium 139 Potassium 3.9 Chloride 104 Carbon Dioxide 31 Anion Gap 5 L BUN 10 Creatinine 0.7 Est GFR (CKD-EPI)AfAm 118.88 Est GFR (CKD-EPI)NonAf 102.57 Random Glucose 83 Calcium 9.6 Total Bilirubin 0.9 AST 90 H ALT 77 H Alkaline Phosphatase 76 Total Protein 6.8 Albumin 3.7 RPR Titer Nonreactive aaox3 ambulating no acute distress Assessment: 06/21/18 10:34 withdrawal sx Plan: continue detox increase fluids d/c in on Sunday.order has been placed.
[2018-06-21] MEDS: VALSARTAN 160 MG TABLET (UD) PO SCH (14:53)
[2018-06-21] MEDS: metoPROLOL SUCCINATE 25 MG TAB.SR.24H (FP) PO SCH (14:54)
[2018-06-21] MEDS: HYDROCHLOROTHIAZIDE 12.5 MG CAPSULE (FP) PO SCH (14:54)
[2018-06-21] MEDS: chlordiazePOXIDE HCL 10 MG CAPSULE PO SCH (22:38)
[2018-06-21] MEDS: THIAMINE HCL 100 MG TABLET (FP) PO SCH (22:38)
[2018-06-21] MEDS: MELATONIN 5 MG TABLETS PO PRN (22:38)
[2018-06-21] MEDS: SUVOREXANT 10 MG TABLET PO PRN (22:42)
[2018-06-21] MEDS ORDERED: chlordiazePOXIDE HCL 10 MG CAPSULE PO PRN (23:00)
[2018-06-22] MEDS: chlordiazePOXIDE HCL 10 MG CAPSULE PO SCH ×4 (06:22→22:26)
[2018-06-22] MEDS: ASPIRIN 81 MG CHEWABLE TABLETS PO SCH (10:21)
[2018-06-22] MEDS: metoPROLOL SUCCINATE 25 MG TAB.SR.24H (FP) PO SCH (10:21)
[2018-06-22] MEDS: PRENATAL VITAMINS W/ FOLIC ACID TABLET (FP) PO SCH (10:21)
[2018-06-22] MEDS: VALSARTAN 160 MG TABLET (UD) PO SCH (10:21)
[2018-06-22] MEDS: HYDROCHLOROTHIAZIDE 12.5 MG CAPSULE (FP) PO SCH (10:22)
--- NOTE | 2018-06-22 11:50 | PN ---
S Progress Note (SOAP) Subjective: c/o tremor, body aches, and sweats. Objective: 06/22/18 11:49 Vital Signs 06/22/18 06/22/18 08:12 09:56 Temperature 98.4 F 98.1 F Pulse Rate 102 H 83 Respiratory 20 18 Rate Blood Pressure 133/91 126/76 Assessment: 06/22/18 11:49 AOX3, in no distress mild withdrawal symptoms. Plan: continue detox.
[2018-06-22] MEDS: MELATONIN 5 MG TABLETS PO PRN (22:26)
[2018-06-22] MEDS: THIAMINE HCL 100 MG TABLET (FP) PO SCH (22:26)
[2018-06-22] MEDS: SUVOREXANT 10 MG TABLET PO PRN (22:27)
[2018-06-23] MEDS: metoPROLOL SUCCINATE 25 MG TAB.SR.24H (FP) PO SCH (10:08)
[2018-06-23] MEDS: VALSARTAN 160 MG TABLET (UD) PO SCH (10:09)
[2018-06-23] MEDS: PRENATAL VITAMINS W/ FOLIC ACID TABLET (FP) PO SCH (10:09)
[2018-06-23] MEDS: ASPIRIN 81 MG CHEWABLE TABLETS PO SCH (10:09)
[2018-06-23] MEDS: HYDROCHLOROTHIAZIDE 12.5 MG CAPSULE (FP) PO SCH (10:09)
[2018-06-23] MEDS: chlordiazePOXIDE HCL 10 MG CAPSULE PO SCH (10:09)
[2018-06-23 11:07] VITALS: BP 114/69; PULSE 89; TEMP 98.1
--- NOTE | 2018-06-23 12:23 | DS ---
[facility] Detox Discharge Summary Admission Date: 06/19/18 - History Present History: Alcohol Dependence Additional Comments: Patient completed detox successfully. Discharged safely in stable condition. Instructed to follow up with PCP within 1-2 weeks. Pertinent Past History: HTN HLD Alcohol dependence - Physical Exam Results Vital Signs: Vital Signs Temperature 98.1 F 06/23/18 10:20 Pulse Rate 89 06/23/18 10:20 Respiratory Rate 18 06/23/18 10:20 Blood Pressure 114/69 06/23/18 10:20 O2 Sat by Pulse Oximetry (%) Pertinent Admission Physical Exam Findings: Withdrawal symptoms Laboratory Tests 06/20/18 06/20/18 06/20/18 07:00 07:00 07:00 WBC 4.7 RBC 4.09 Hgb 13.9 Hct 41.2 MCV 100.7 H MCH 34.1 H MCHC 33.8 RDW 14.9 D Plt Count 177 MPV 9.1 Sodium 139 Potassium 3.9 Chloride 104 Carbon Dioxide 31 Anion Gap 5 L BUN 10 Creatinine 0.7 Est GFR (CKD-EPI)AfAm 118.88 Est GFR (CKD-EPI)NonAf 102.57 Random Glucose 83 Calcium 9.6 Total Bilirubin 0.9 AST 90 H ALT 77 H Alkaline Phosphatase 76 Total Protein 6.8 Albumin 3.7 RPR Titer Nonreactive Labs reviewed - Treatment Hospital Course: Detox Protocol Followed, Detoxed Safely, Responded well, Discharged Condition Good - Medication Discharge Medications: Ambulatory Orders Aspirin [ASA -] 81 mg PO DAILY #30 tab.chew 02/07/17 Olmesartan/Hydrochlorothiazide [Benicar Hct 20-12.5MG Tab -] 1 tab PO DAILY #30 tablet 02/07/17 Quetiapine Fumarate [Seroquel] 100 mg PO HS #30 tablet 01/02/18 Acetaminophen/Caffeine/Butalb [Fioricet -] 1 tab PO Q4H PRN 02/18/18 Metoprolol Succinate [Toprol XL -] 12.5 mg PO DAILY #30 tab.sr.24h 02/21/18 Rosuvastatin Calcium [Crestor] 10 mg PO HS #30 tablet 02/21/18 - Diagnosis (1) Alcohol dependence with uncomplicated withdrawal Status: Acute (2) Dyslipidemia Status: Chronic (3) Essential hypertension Status: Chronic (4) Depression Status: Chronic - AMA Did Patient Leave Against Medical Advice: No (F/U with PCP within 1-2 weeks)
== END 2018-06-23 10:32 | disposition home or self-care (01) | DRG 897 ==
LOC: YASAS 15:04 → Y6N 18:39
PROVIDERS: ADMIT Surgery; ATTEND Surgery
PROC: HZ2ZZZZ Detoxification Services for Substance Abuse Treatment (ICD-10-PCS; principal; 2018-06-19)
DX: F10.230 Alcohol dependence with withdrawal, uncomplicated (principal); F10.280 Alcohol dependence with alcohol-induced anxiety disorder; F10.282 Alcohol dependence with alcohol-induced sleep disorder; F32.9 Major depressive disorder, single episode, unspecified; I10 Essential (primary) hypertension; E78.5 Hyperlipidemia, unspecified; R35.1 Nocturia; G47.00 Insomnia, unspecified; H55.00 Unspecified nystagmus; Z85.46 Personal history of malignant neoplasm of prostate; Z92.3 Personal history of irradiation; Z86.79 Personal history of other diseases of the circulatory system; Z87.891 Personal history of nicotine dependence
CPT/HCPCS: 36415; 80053; 85027; 86593

== ENCOUNTER 2020-01-29 11:30 | Emergency (ER) | payer BC, OTHER ==
[2020-01-29 12:05] VITALS: PULSE 87; TEMP 98.7; BMI 27.2
[2020-01-29 12:34] LABS: BASO % 2.3 % (0-2.0); EOS % 0.9 % (0-4.5); HEMATOCRIT 46.2 % (35.4-49); HEMOGLOBIN 15.6 GM/dL (11.7-16.9); LYMPH % 20.6 % (8-40); MCHC 33.7 g/dl (32.0-35.9); MEAN CELL VOLUME 106.8 fl (80-96); MEAN PLT VOLUME 8.1 fl (7.5-11.1); MONO % 7.5 % (3.8-10.2); NEUT % 68.7 % (42.8-82.8); PLATELET COUNT 299 K/MM3 (134-434); RBC 4.32 M/mm3 (4.00-5.60); RDW 13.1 % (11.9-15.9)
[2020-01-29 12:42] LABS: POTASSIUM 3.7 mmol/L (3.5-5.1)
[2020-01-29 12:44] LABS: ALBUMIN 3.9 g/dl (3.4-5.0); CALCIUM 9.2 mg/dL (8.5-10.1)
[2020-01-29 12:48] LABS: CREATININE 0.6 mg/dL (0.55-1.3)
[2020-01-29 12:49] LABS: BILIRUBIN,TOTAL 0.3 mg/dL (0.2-1)
[2020-01-29 13:13] LABS: URINE BENZODIAZEPINES NEGATIVE ng/ml (CUTOFF=200)
[2020-01-29 13:14] LABS: METHADONE, UR NEGATIVE ng/ml (CUTOFF=300); OPIATES, URI NEGATIVE ng/ml (CUTOFF=300); PHENCYCLIDINE,URINE NEGATIVE ng/ml (CUTOFF=25); URINE AMPHETAMINES NEGATIVE ng/ml (CUTOFF=500)
[2020-01-29 13:17] LABS: COCAINE, UR NEGATIVE ng/ml (CUTOFF=300)
[2020-01-29 13:20] LABS: URINE BARBITURATES POSITIVE ng/ml (CUTOFF=200)
[2020-01-29 14:22] VITALS: BP 120/86
[2020-01-29 15:06] LABS: ANISOCYTOSIS 1+; MACROCYTOSIS 0; PLATELET ESTIMATE NORMAL; TEAR DROP CELLS 1+
== END 2020-01-29 14:22 | disposition home or self-care (01) ==
LOC: JER 11:30
DX: F10.20 Alcohol dependence, uncomplicated (principal)
CPT/HCPCS: 36415; 80053; 80307; 85025; 99283-25

== ENCOUNTER 2020-01-31 10:11 | Inpatient (IN) | payer BC, OTHER ==
[2020-01-31 11:20] VITALS: BMI 23.3
[2020-01-31] MEDS ORDERED: MAGNESIUM CITRATE 300 ML BOTTLE PO PRN (12:35)
[2020-01-31] MEDS ORDERED: BISMUTH SUBSALICYLATE 524 MG/30 ML UD PO PRN (12:35)
[2020-01-31] MEDS ORDERED: MAG HYDROX/AL HYDROX/SIMETH 30 ML UNIT-DOSE CUP PO PRN (12:35)
[2020-01-31] MEDS ORDERED: IBUPROFEN 400 MG TABLET (FP) PO PRN (12:35)
[2020-01-31] MEDS ORDERED: ACETAMINOPHEN 325 MG TABLET (FP) PO PRN ×2 (12:35)
[2020-01-31] MEDS ORDERED: MAGNESIUM HYDROX 2400MG/30ML ORAL SUSPENSION 30 ML CUP PO PRN (12:35)
[2020-01-31] MEDS ORDERED: MENTHOL/PHENOL 1 EACH UD MM PRN (12:35)
[2020-01-31] MEDS ORDERED: ONDANSETRON *ODT* 4 MG TABLET SL PRN (12:35)
[2020-01-31] MEDS ORDERED: METHOCARBAMOL 500 MG TABLET PO PRN (12:35)
[2020-01-31] MEDS: HYDROCHLOROTHIAZIDE 12.5 MG CAPSULE (FP) PO SCH (13:23)
[2020-01-31] MEDS: hydrOXYzine PAMOATE 25 MG CAPSULE (FP) PO SCH ×3 (13:23→22:31)
[2020-01-31] MEDS: ASPIRIN 81 MG CHEWABLE TABLETS PO SCH (13:23)
[2020-01-31] MEDS: chlordiazePOXIDE HCL 25 MG CAPSULE PO PRN (13:23)
[2020-01-31] MEDS: VALSARTAN 40 MG TABLET PO SCH (14:13)
[2020-01-31] MEDS: chlordiazePOXIDE HCL 25 MG CAPSULE PO SCH ×2 (17:54→22:27)
[2020-01-31 19:09] LABS: EPI CELLS 10 /uL (0-25.1); HYALINE CASTS 4 /uL (0-3.1); URINE APPEARANCE CLEAR; URINE BACTERIA 58 /uL (0-1359); URINE BILIRUBIN NEGATIVE (NEGATIVE); URINE COLOR YELLOW; URINE GLUCOSE (UA) NEGATIVE (NEGATIVE); URINE KETONE 1+ (NEGATIVE); URINE LEUK ESTERASE NEGATIVE (NEGATIVE); URINE NITRITE NEGATIVE (NEGATIVE); URINE PROTEIN TRACE (NEGATIVE); URINE RBC 208 /uL (0-23.9); URINE WBC 52 /uL (0-25.8)
[2020-01-31] MEDS: ROSUVASTATIN CA 10 MG TABLET (FP) PO SCH (22:27)
[2020-01-31] MEDS: THIAMINE HCL 100 MG TABLET (FP) PO SCH (22:27)
[2020-01-31] MEDS: MELATONIN 5 MG TABLETS PO SCH (22:28)
[2020-02-01] MEDS: hydrOXYzine PAMOATE 25 MG CAPSULE (FP) PO SCH ×5 (05:36→22:13)
[2020-02-01] MEDS: chlordiazePOXIDE HCL 25 MG CAPSULE PO SCH ×4 (05:36→22:13)
[2020-02-01 09:27] LABS: MCH 36.7 pg (25.7-33.7); MCHC 34.2 g/dl (32.0-35.9); MEAN CELL VOLUME 107.4 fl (80-96); PLATELET COUNT 227 K/MM3 (134-434); RBC 4.09 M/mm3 (4.00-5.60); WHITE BLOOD COUNT 5.9 K/mm3 (4.0-10.0)
[2020-02-01] MEDS: VALSARTAN 40 MG TABLET PO SCH (10:04)
[2020-02-01] MEDS: PRENATAL VITAMINS W/ FOLIC ACID TABLET (FP) PO SCH (10:04)
[2020-02-01] MEDS: HYDROCHLOROTHIAZIDE 12.5 MG CAPSULE (FP) PO SCH (10:05)
[2020-02-01] MEDS: ASPIRIN 81 MG CHEWABLE TABLETS PO SCH (10:05)
[2020-02-01 10:29] LABS: ALBUMIN 3.6 g/dl (3.4-5.0); BLOOD UREA NITROGEN 17.2 mg/dL (7-18); CALCIUM 9.6 mg/dL (8.5-10.1)
[2020-02-01] MEDS ORDERED: POTASSIUM CHLORIDE ORAL LIQUID 20 MEQ/15 ML PO ONE ×3 (10:30→16:30)
[2020-02-01 10:32] LABS: CREATININE 0.7 mg/dL (0.55-1.3)
[2020-02-01 10:33] LABS: BILIRUBIN,TOTAL 0.9 mg/dL (0.2-1)
[2020-02-01 10:38] LABS: TOT PROT 6.1 g/dl (6.4-8.2)
[2020-02-01] MEDS: chlordiazePOXIDE HCL 25 MG CAPSULE PO PRN (13:39)
[2020-02-01] MEDS: THIAMINE HCL 100 MG TABLET (FP) PO SCH (22:13)
[2020-02-01] MEDS: ROSUVASTATIN CA 10 MG TABLET (FP) PO SCH (22:13)
[2020-02-01] MEDS: MELATONIN 5 MG TABLETS PO SCH (22:13)
[2020-02-02] MEDS: hydrOXYzine PAMOATE 25 MG CAPSULE (FP) PO SCH ×6 (05:16→22:21)
[2020-02-02] MEDS: chlordiazePOXIDE HCL 25 MG CAPSULE PO SCH ×2 (05:16→10:19)
[2020-02-02] MEDS: HYDROCHLOROTHIAZIDE 12.5 MG CAPSULE (FP) PO SCH (10:19)
[2020-02-02] MEDS: PRENATAL VITAMINS W/ FOLIC ACID TABLET (FP) PO SCH (10:19)
[2020-02-02] MEDS: VALSARTAN 40 MG TABLET PO SCH (10:20)
[2020-02-02] MEDS: ASPIRIN 81 MG CHEWABLE TABLETS PO SCH (10:21)
[2020-02-02] MEDS ORDERED: LORazepam 1 MG TABLET PO PRN (10:48)
[2020-02-02 11:33] LABS: EPI CELLS 18 /uL (0-25.1); HYALINE CASTS 2 /uL (0-3.1); URINE APPEARANCE CLEAR; URINE BACTERIA 158 /uL (0-1359); URINE BILIRUBIN NEGATIVE (NEGATIVE); URINE COLOR YELLOW; URINE GLUCOSE (UA) NEGATIVE (NEGATIVE); URINE KETONE NEGATIVE (NEGATIVE); URINE LEUK ESTERASE TRACE (NEGATIVE); URINE NITRITE NEGATIVE (NEGATIVE); URINE PROTEIN NEGATIVE (NEGATIVE); URINE WBC 27 /uL (0-25.8)
[2020-02-02 14:31] LABS: URINE RBC 143.3 /uL (0-23.9)
[2020-02-02] MEDS: LORazepam 2 MG TABLET PO SCH ×2 (17:33→22:21)
[2020-02-02] MEDS: ROSUVASTATIN CA 10 MG TABLET (FP) PO SCH (22:21)
[2020-02-02] MEDS: THIAMINE HCL 100 MG TABLET (FP) PO SCH (22:21)
[2020-02-02] MEDS: MELATONIN 5 MG TABLETS PO SCH (22:21)
[2020-02-03] MEDS ORDERED: chlordiazePOXIDE HCL 10 MG CAPSULE PO PRN
[2020-02-03] MEDS ORDERED: chlordiazePOXIDE HCL 10 MG CAPSULE PO SCH (05:00)
[2020-02-03] MEDS: hydrOXYzine PAMOATE 25 MG CAPSULE (FP) PO SCH ×2 (05:26→10:46)
[2020-02-03] MEDS: LORazepam 1 MG TABLET PO SCH ×4 (05:26→22:15)
[2020-02-03] MEDS: HYDROCHLOROTHIAZIDE 12.5 MG CAPSULE (FP) PO SCH (10:28)
[2020-02-03] MEDS: PRENATAL VITAMINS W/ FOLIC ACID TABLET (FP) PO SCH (10:28)
[2020-02-03] MEDS: ASPIRIN 81 MG CHEWABLE TABLETS PO SCH (10:28)
[2020-02-03] MEDS: hydrOXYzine PAMOATE 25 MG CAPSULE (FP) PO PRN (10:28)
[2020-02-03] MEDS: VALSARTAN 40 MG TABLET PO SCH (10:28)
[2020-02-03] MEDS ORDERED: ACETAMINOPHEN 325 MG TABLET (FP) PO ONE (10:30)
[2020-02-03] MEDS: ROSUVASTATIN CA 10 MG TABLET (FP) PO SCH (22:15)
[2020-02-03] MEDS: THIAMINE HCL 100 MG TABLET (FP) PO SCH (22:15)
[2020-02-03] MEDS: MELATONIN 5 MG TABLETS PO SCH (22:15)
[2020-02-04] MEDS ORDERED: LORazepam 0.5 MG TABLET PO PRN
[2020-02-04] MEDS ORDERED: chlordiazePOXIDE HCL 10 MG CAPSULE PO SCH (05:00)
[2020-02-04] MEDS: LORazepam 0.5 MG TABLET PO SCH ×4 (05:37→22:09)
[2020-02-04] MEDS: VALSARTAN 40 MG TABLET PO SCH (10:43)
[2020-02-04] MEDS: HYDROCHLOROTHIAZIDE 12.5 MG CAPSULE (FP) PO SCH (10:43)
[2020-02-04] MEDS: PRENATAL VITAMINS W/ FOLIC ACID TABLET (FP) PO SCH (10:43)
[2020-02-04] MEDS: hydrOXYzine PAMOATE 25 MG CAPSULE (FP) PO PRN ×3 (10:43→17:10)
[2020-02-04] MEDS: ASPIRIN 81 MG CHEWABLE TABLETS PO SCH (10:43)
[2020-02-04] MEDS: THIAMINE HCL 100 MG TABLET (FP) PO SCH (22:09)
[2020-02-04] MEDS: ROSUVASTATIN CA 10 MG TABLET (FP) PO SCH (22:09)
[2020-02-04] MEDS: MELATONIN 5 MG TABLETS PO SCH (22:09)
[2020-02-05] MEDS ORDERED: chlordiazePOXIDE HCL 10 MG CAPSULE PO ONE (05:00)
[2020-02-05] MEDS ORDERED: LORazepam 0.5 MG TABLET PO ONE (05:00)
[2020-02-05] MEDS: PRENATAL VITAMINS W/ FOLIC ACID TABLET (FP) PO SCH (09:04)
[2020-02-05] MEDS: hydrOXYzine PAMOATE 25 MG CAPSULE (FP) PO PRN (09:04)
[2020-02-05 09:40] VITALS: BP 129/87; PULSE 103; TEMP 96.7
== END 2020-02-05 09:15 | disposition home or self-care (01) | DRG 897 ==
LOC: YASAS 10:11 → Y3N 12:11
PROVIDERS: ADMIT Allergy & Immunology; ATTEND Allergy & Immunology
PROC: HZ2ZZZZ Detoxification Services for Substance Abuse Treatment (ICD-10-PCS; principal; 2020-01-31)
DX: F10.230 Alcohol dependence with withdrawal, uncomplicated (principal); F10.220 Alcohol dependence with intoxication, uncomplicated; F10.24 Alcohol dependence with alcohol-induced mood disorder; I10 Essential (primary) hypertension; E78.5 Hyperlipidemia, unspecified; G47.00 Insomnia, unspecified; Z85.46 Personal history of malignant neoplasm of prostate; R35.1 Nocturia; R73.09 Other abnormal glucose; R74.01 Elevation of levels of liver transaminase levels; R31.9 Hematuria, unspecified; E87.6 Hypokalemia; Z92.3 Personal history of irradiation; Z86.79 Personal history of other diseases of the circulatory system; Z87.891 Personal history of nicotine dependence
CPT/HCPCS: 36415; 80053; 81003; 82962; 84132; 85027; 86780; C9803; U0003

== ENCOUNTER 2022-05-29 12:38 | Inpatient (IN) | payer OTHER ==
[2022-05-29 14:16] VITALS: BMI 21.9
[2022-05-29] MEDS ORDERED: COLLOIDAL OATMEAL 1 BAR EACH TP PRN (18:59)
[2022-05-29] MEDS ORDERED: ONDANSETRON *ODT* 4 MG TABLET SL PRN (18:59)
[2022-05-29] MEDS ORDERED: chlordiazePOXIDE HCL 25 MG CAPSULE PO ONE (18:59)
[2022-05-29] MEDS ORDERED: BISMUTH SUBSALICYLATE 524 MG/30 ML PO PRN (18:59)
[2022-05-29] MEDS ORDERED: MAGNESIUM HYDROX 2400MG/30ML ORAL SUSPENSION 30 ML CUP PO PRN (18:59)
[2022-05-29] MEDS ORDERED: BENZONATATE 200 MG CAPSULE PO PRN (18:59)
[2022-05-29] MEDS ORDERED: BENZOCAINE/MENTHOL (CHLORASEPTIC ) LOZENGE MM PRN (18:59)
[2022-05-29] MEDS ORDERED: NALOXONE HCL (KLOXXADO) 8 MG SPRAY NS PRN (18:59)
[2022-05-29] MEDS ORDERED: guaiFENesin 600 MG TABLET.ER (FP) PO PRN (18:59)
[2022-05-29] MEDS ORDERED: MAG HYDROX/AL HYDROX/SIMETH 30 ML UNIT-DOSE CUP PO PRN (18:59)
[2022-05-29] MEDS ORDERED: DICYCLOMINE HCL 10 MG CAPSULE PO PRN (18:59)
[2022-05-29] MEDS ORDERED: NICOTINE 10 MG CARTRIDGE (INHALER) IH PRN (18:59)
[2022-05-29] MEDS ORDERED: AMMONIUM LACTATE 12% LOTION 225 GM BOTTLE TP PRN (18:59)
[2022-05-29] MEDS ORDERED: NALOXONE HCL 0.4 MG/ML VIAL IM PRN (18:59)
[2022-05-29] MEDS ORDERED: POLYETHYLENE GLYCOL (HEALTHYLAX) 3350 17 GM PACKET PO PRN (18:59)
[2022-05-29] MEDS ORDERED: LOPERAMIDE HCL 2 MG CAPSULE PO PRN (18:59)
[2022-05-29] MEDS ORDERED: ONDANSETRON *ODT* 4 MG TABLET ONE (19:11)
[2022-05-29] MEDS ORDERED: chlordiazePOXIDE HCL 25 MG CAPSULE ONE (19:12)
[2022-05-29] MEDS ORDERED: PATIENT'S OWN MEDICATION (NON-FORMULARY) (Olmesartan/Hydrochlorothiazide [Benicar Hct 20-1 PO SCH (19:15)
[2022-05-29] MEDS: ASPIRIN 81 MG CHEWABLE TABLETS PO SCH (19:33)
[2022-05-29] MEDS: LOSARTAN POTASSIUM 50 MG TABLET PO SCH (19:34)
[2022-05-29] MEDS: HYDROCHLOROTHIAZIDE 12.5 MG CAPSULE (FP) PO SCH (19:34)
[2022-05-29] MEDS ORDERED: MELATONIN 5 MG TABLETS PO SCH (22:00)
[2022-05-29] MEDS: THIAMINE HCL 100 MG TABLET (FP) PO SCH (22:55)
[2022-05-29] MEDS: IBUPROFEN 400 MG TABLET (FP) PO PRN (22:55)
[2022-05-29] MEDS: chlordiazePOXIDE HCL 25 MG CAPSULE PO SCH (22:56)
[2022-05-29] MEDS: ROSUVASTATIN CA 10 MG TABLET PO SCH (23:12)
[2022-05-30] MEDS: chlordiazePOXIDE HCL 25 MG CAPSULE PO SCH ×4 (05:47→22:14)
[2022-05-30] MEDS: METHOCARBAMOL 500 MG TABLET PO PRN ×2 (05:50→17:44)
[2022-05-30] MEDS: IBUPROFEN 400 MG TABLET (FP) PO PRN (05:50)
[2022-05-30] MEDS: PRENATAL VITAMINS W/ FOLIC ACID TABLET (FP) PO SCH (10:06)
[2022-05-30] MEDS: HYDROCHLOROTHIAZIDE 12.5 MG CAPSULE (FP) PO SCH (10:07)
[2022-05-30] MEDS: LOSARTAN POTASSIUM 50 MG TABLET PO SCH (10:07)
[2022-05-30] MEDS: ASPIRIN 81 MG CHEWABLE TABLETS PO SCH (10:08)
[2022-05-30 11:29] LABS: HEMATOCRIT 39.3 % (35.4-49); HEMOGLOBIN 14.2 GM/dL (11.7-16.9); MCHC 36.1 g/dl (32.0-35.9); MEAN CELL VOLUME 105.4 fl (80-96); MEAN PLT VOLUME 8.9 fl (7.5-11.1); PLATELET COUNT 235 10^3/uL (134-434); RBC 3.73 M/mm3 (4.00-5.60); RDW 13.7 % (11.9-15.9); WHITE BLOOD COUNT 5.2 K/mm3 (4.0-10.0)
[2022-05-30 11:48] LABS: ALBUMIN 3.8 g/dl (3.4-5.0); CALCIUM 9.8 mg/dL (8.5-10.1)
[2022-05-30 11:49] LABS: BLOOD UREA NITROGEN 16.6 mg/dL (7-18)
[2022-05-30 11:51] LABS: CREATININE 0.7 mg/dL (0.55-1.3)
[2022-05-30 11:53] LABS: BILIRUBIN,TOTAL 0.6 mg/dL (0.2-1); TOT PROT 6.8 g/dl (6.4-8.2)
[2022-05-30] MEDS: ROSUVASTATIN CA 10 MG TABLET PO SCH (22:13)
[2022-05-30] MEDS: QUEtiapine FUMARATE 50 MG TABLET PO PRN (22:14)
[2022-05-30] MEDS: THIAMINE HCL 100 MG TABLET (FP) PO SCH (22:14)
[2022-05-31] MEDS: chlordiazePOXIDE HCL 25 MG CAPSULE PO SCH ×4 (05:59→22:16)
[2022-05-31] MEDS: METHOCARBAMOL 500 MG TABLET PO PRN ×2 (06:02→17:45)
[2022-05-31] MEDS: IBUPROFEN 600 MG TABLET (FP) PO PRN ×2 (06:02→17:45)
[2022-05-31] MEDS: PRENATAL VITAMINS W/ FOLIC ACID TABLET (FP) PO SCH (10:15)
[2022-05-31] MEDS: LOSARTAN POTASSIUM 50 MG TABLET PO SCH (10:17)
[2022-05-31] MEDS: HYDROCHLOROTHIAZIDE 12.5 MG CAPSULE (FP) PO SCH (10:17)
[2022-05-31] MEDS: ASPIRIN 81 MG CHEWABLE TABLETS PO SCH (11:21)
[2022-05-31] MEDS: QUEtiapine FUMARATE 50 MG TABLET PO PRN (22:15)
[2022-05-31] MEDS: ROSUVASTATIN CA 10 MG TABLET PO SCH (22:16)
[2022-05-31] MEDS: THIAMINE HCL 100 MG TABLET (FP) PO SCH (22:16)
[2022-06-01] MEDS: chlordiazePOXIDE HCL 10 MG CAPSULE PO SCH ×4 (05:37→22:29)
[2022-06-01] MEDS: LOSARTAN POTASSIUM 50 MG TABLET PO SCH (10:08)
[2022-06-01] MEDS: ASPIRIN 81 MG CHEWABLE TABLETS PO SCH (10:08)
[2022-06-01] MEDS: HYDROCHLOROTHIAZIDE 12.5 MG CAPSULE (FP) PO SCH (10:08)
[2022-06-01] MEDS: PRENATAL VITAMINS W/ FOLIC ACID TABLET (FP) PO SCH (10:09)
[2022-06-01] MEDS: ACETAMINOPHEN 325 MG TABLET (FP) PO PRN (15:25)
[2022-06-01] MEDS: QUEtiapine FUMARATE 50 MG TABLET PO PRN (22:28)
[2022-06-01] MEDS: ROSUVASTATIN CA 10 MG TABLET PO SCH (22:28)
[2022-06-01] MEDS: METHOCARBAMOL 500 MG TABLET PO PRN (22:28)
[2022-06-01] MEDS: THIAMINE HCL 100 MG TABLET (FP) PO SCH (22:29)
[2022-06-02] MEDS: chlordiazePOXIDE HCL 10 MG CAPSULE PO SCH ×2 (05:37→17:28)
[2022-06-02] MEDS: ACETAMINOPHEN 325 MG TABLET (FP) PO PRN (08:02)
[2022-06-02] MEDS: PRENATAL VITAMINS W/ FOLIC ACID TABLET (FP) PO SCH (10:04)
[2022-06-02] MEDS: HYDROCHLOROTHIAZIDE 12.5 MG CAPSULE (FP) PO SCH (10:04)
[2022-06-02] MEDS: LOSARTAN POTASSIUM 50 MG TABLET PO SCH (10:04)
[2022-06-02] MEDS: ASPIRIN 81 MG CHEWABLE TABLETS PO SCH (10:04)
[2022-06-02] MEDS: METHOCARBAMOL 500 MG TABLET PO PRN ×2 (10:07→22:04)
[2022-06-02] MEDS: THIAMINE HCL 100 MG TABLET (FP) PO SCH (22:04)
[2022-06-02] MEDS: ROSUVASTATIN CA 10 MG TABLET PO SCH (22:04)
[2022-06-02] MEDS: QUEtiapine FUMARATE 50 MG TABLET PO PRN (22:06)
[2022-06-03] MEDS ORDERED: chlordiazePOXIDE HCL 10 MG CAPSULE PO ONE (05:00)
[2022-06-03] MEDS: ACETAMINOPHEN 325 MG TABLET (FP) PO PRN (05:48)
[2022-06-03 06:31] VITALS: TEMP 98.2
[2022-06-03 09:27] VITALS: BP 103/72; PULSE 65; RESP 18
== END 2022-06-03 09:45 | disposition home or self-care (01) | DRG 897 ==
LOC: YASAS 12:38 → Y3N 18:52
PROVIDERS: ADMIT Allergy & Immunology; ATTEND Surgery
PROC: HZ2ZZZZ Detoxification Services for Substance Abuse Treatment (ICD-10-PCS; principal; 2022-05-29)
DX: F10.230 Alcohol dependence with withdrawal, uncomplicated (principal); F10.282 Alcohol dependence with alcohol-induced sleep disorder; E78.00 Pure hypercholesterolemia, unspecified; I10 Essential (primary) hypertension; F32.9 Major depressive disorder, single episode, unspecified; Z86.79 Personal history of other diseases of the circulatory system; Z85.46 Personal history of malignant neoplasm of prostate; Z87.891 Personal history of nicotine dependence; Z98.49 Cataract extraction status, unspecified eye
CPT/HCPCS: 36415; 80053; 85027; 86780; C9803-CS; Q0162; U0003; U0005

== ENCOUNTER 2022-09-18 20:00 | Inpatient (IN) | payer OTHER ==
[2022-09-18 21:25] VITALS: BMI 24.9
[2022-09-19] MEDS ORDERED: IBUPROFEN 400 MG TABLET (FP) PO PRN (02:03)
[2022-09-19] MEDS ORDERED: BENZONATATE 200 MG CAPSULE PO PRN (02:03)
[2022-09-19] MEDS ORDERED: guaiFENesin 600 MG TABLET.ER (FP) PO PRN (02:03)
[2022-09-19] MEDS ORDERED: DICYCLOMINE HCL 10 MG CAPSULE PO PRN (02:03)
[2022-09-19] MEDS ORDERED: MAG HYDROX/AL HYDROX/SIMETH 30 ML UNIT-DOSE CUP PO PRN (02:03)
[2022-09-19] MEDS ORDERED: MAGNESIUM HYDROX 2400MG/30ML ORAL SUSPENSION 30 ML CUP PO PRN (02:03)
[2022-09-19] MEDS ORDERED: LOPERAMIDE HCL 2 MG CAPSULE PO PRN (02:03)
[2022-09-19] MEDS ORDERED: ACETAMINOPHEN 325 MG TABLET (FP) PO PRN (02:03)
[2022-09-19] MEDS ORDERED: ONDANSETRON *ODT* 4 MG TABLET SL PRN (02:03)
[2022-09-19] MEDS ORDERED: BISMUTH SUBSALICYLATE 524 MG/30 ML PO PRN (02:03)
[2022-09-19] MEDS ORDERED: NALOXONE HCL 0.4 MG/ML VIAL IM PRN (02:03)
[2022-09-19] MEDS ORDERED: NALOXONE HCL (KLOXXADO) 8 MG SPRAY NS PRN (02:03)
[2022-09-19] MEDS ORDERED: BENZOCAINE/MENTHOL (CHLORASEPTIC ) LOZENGE MM PRN (02:03)
[2022-09-19] MEDS ORDERED: POLYETHYLENE GLYCOL (HEALTHYLAX) 3350 17 GM PACKET PO PRN (02:03)
[2022-09-19] MEDS ORDERED: chlordiazePOXIDE HCL 25 MG CAPSULE PO PRN (02:07)
[2022-09-19] MEDS: chlordiazePOXIDE HCL 25 MG CAPSULE PO SCH ×4 (05:03→22:25)
[2022-09-19] MEDS: PRENATAL VITAMINS W/ FOLIC ACID TABLET (FP) PO SCH (10:18)
[2022-09-19] MEDS: THIAMINE HCL 100 MG TABLET (FP) PO SCH (22:23)
[2022-09-19] MEDS: METHOCARBAMOL 500 MG TABLET PO PRN (22:23)
[2022-09-19] MEDS: MELATONIN 5 MG TABLETS PO SCH (22:23)
[2022-09-19] MEDS: QUEtiapine FUMARATE 50 MG TABLET PO SCH (23:28)
[2022-09-20] MEDS: chlordiazePOXIDE HCL 25 MG CAPSULE PO SCH ×4 (05:53→22:12)
[2022-09-20] MEDS: PRENATAL VITAMINS W/ FOLIC ACID TABLET (FP) PO SCH (10:20)
[2022-09-20 11:14] LABS: HEMOGLOBIN 12.4 GM/dL (11.7-16.9); MCH 35.8 pg (25.7-33.7); MCHC 32.6 g/dl (32.0-35.9); MEAN CELL VOLUME 110.1 fl (80-96); MEAN PLT VOLUME 7.9 fl (7.5-11.1); PLATELET COUNT 329 10^3/uL (134-434); RBC 3.46 M/mm3 (4.00-5.60); RDW 16.1 % (11.9-15.9); WHITE BLOOD COUNT 5.2 K/mm3 (4.0-10.0)
[2022-09-20 13:06] LABS: POTASSIUM 3.6 mmol/L (3.5-5.1)
[2022-09-20 13:15] LABS: CALCIUM 9.6 mg/dL (8.5-10.1)
[2022-09-20 13:16] LABS: ALBUMIN 3.3 g/dl (3.4-5.0); BLOOD UREA NITROGEN 12.2 mg/dL (7-18)
[2022-09-20 13:19] LABS: CREATININE 0.7 mg/dL (0.55-1.3)
[2022-09-20 13:21] LABS: BILIRUBIN,TOTAL 0.2 mg/dL (0.2-1); TOT PROT 6.1 g/dl (6.4-8.2)
[2022-09-20] MEDS: IBUPROFEN 600 MG TABLET (FP) PO PRN (21:03)
[2022-09-20] MEDS ORDERED: QUEtiapine FUMARATE 50 MG TABLET PO SCH (22:00)
[2022-09-20] MEDS: THIAMINE HCL 100 MG TABLET (FP) PO SCH (22:12)
[2022-09-20] MEDS: QUEtiapine FUMARATE 50 MG TABLET PO SCH (22:12)
[2022-09-20] MEDS: MELATONIN 5 MG TABLETS PO SCH (22:12)
[2022-09-20] MEDS: METHOCARBAMOL 500 MG TABLET PO PRN (22:13)
[2022-09-21] MEDS ORDERED: chlordiazePOXIDE HCL 10 MG CAPSULE PO PRN
[2022-09-21] MEDS: chlordiazePOXIDE HCL 10 MG CAPSULE PO SCH ×4 (05:59→22:16)
[2022-09-21] MEDS: PRENATAL VITAMINS W/ FOLIC ACID TABLET (FP) PO SCH (10:35)
[2022-09-21] MEDS: IBUPROFEN 600 MG TABLET (FP) PO PRN (17:37)
[2022-09-21] MEDS ORDERED: PATIENT'S OWN MEDICATION (NON-FORMULARY) (Olmesartan/Hydrochlorothiazide [Benicar Hct 20-1 PO SCH (18:30)
[2022-09-21] MEDS: ASPIRIN 81 MG CHEWABLE TABLETS PO SCH (19:20)
[2022-09-21] MEDS ORDERED: LOSARTAN 50MG/HCTZ 12.5MG 1 TAB PO SCH (21:02)
[2022-09-21] MEDS ORDERED: LOSARTAN 50MG/HCTZ 12.5MG 1 TAB PO ONE (21:15)
[2022-09-21] MEDS: QUEtiapine FUMARATE 50 MG TABLET PO SCH (22:16)
[2022-09-21] MEDS: THIAMINE HCL 100 MG TABLET (FP) PO SCH (22:16)
[2022-09-21] MEDS: MELATONIN 5 MG TABLETS PO SCH (22:16)
[2022-09-21] MEDS: METHOCARBAMOL 500 MG TABLET PO PRN (22:17)
[2022-09-21] MEDS: ROSUVASTATIN CA 5 MG TABLET PO SCH (22:50)
[2022-09-22] MEDS: chlordiazePOXIDE HCL 10 MG CAPSULE PO SCH ×2 (05:36→17:40)
[2022-09-22] MEDS ORDERED: LOSARTAN 50MG/HCTZ 12.5MG 1 TAB PO SCH ×3 (10:00→15:38)
[2022-09-22] MEDS: ASPIRIN 81 MG CHEWABLE TABLETS PO SCH (10:12)
[2022-09-22] MEDS: PRENATAL VITAMINS W/ FOLIC ACID TABLET (FP) PO SCH (10:12)
[2022-09-22] MEDS: IBUPROFEN 600 MG TABLET (FP) PO PRN ×2 (15:07→22:18)
[2022-09-22] MEDS ORDERED: LOSARTAN 50MG/HCTZ 12.5MG 1 TAB PO ONE (15:37)
[2022-09-22] MEDS: ROSUVASTATIN CA 5 MG TABLET PO SCH (22:16)
[2022-09-22] MEDS: QUEtiapine FUMARATE 50 MG TABLET PO SCH (22:16)
[2022-09-22] MEDS: THIAMINE HCL 100 MG TABLET (FP) PO SCH (22:16)
[2022-09-22] MEDS: MELATONIN 5 MG TABLETS PO SCH (22:17)
[2022-09-23] MEDS ORDERED: chlordiazePOXIDE HCL 10 MG CAPSULE PO ONE (05:00)
[2022-09-23 09:16] VITALS: RESP 18
[2022-09-23 09:38] VITALS: BP 118/81; PULSE 98; TEMP 97.5
[2022-09-23] MEDS: ASPIRIN 81 MG CHEWABLE TABLETS PO SCH (09:41)
[2022-09-23] MEDS: PRENATAL VITAMINS W/ FOLIC ACID TABLET (FP) PO SCH (09:44)
== END 2022-09-23 08:43 | disposition home or self-care (01) | DRG 897 ==
LOC: YASAS 20:00 → Y3N 09-19 02:55
PROVIDERS: ADMIT Allergy & Immunology; ATTEND Allergy & Immunology
PROC: HZ2ZZZZ Detoxification Services for Substance Abuse Treatment (ICD-10-PCS; principal; 2022-09-19)
DX: F10.230 Alcohol dependence with withdrawal, uncomplicated (principal); F10.24 Alcohol dependence with alcohol-induced mood disorder; F32.A Depression, unspecified; E78.00 Pure hypercholesterolemia, unspecified; I10 Essential (primary) hypertension; G47.00 Insomnia, unspecified; Z85.46 Personal history of malignant neoplasm of prostate; Z86.79 Personal history of other diseases of the circulatory system; Z59.00 Homelessness unspecified; Z87.891 Personal history of nicotine dependence
CPT/HCPCS: 36415; 80053; 85027; 86780; 87635

== ENCOUNTER 2023-02-02 05:45 | Inpatient (IN) | payer BC, OTHER ==
[2023-02-02] MEDS ORDERED: LACTATED RINGERS SOLUTION 1000 ML INFUS.BAG IV ONE ×3 (06:02→08:04)
[2023-02-02 07:04] LABS: VENOUS BASE EXCESS -2.9 mmol/L (-2-2); VENOUS O2 SATURATION 85.7 % (70-80); VENOUS PCO2 33.5 mmHg (38-52); VENOUS PH 7.417 (7.310-7.410)
[2023-02-02] MEDS ORDERED: PIPERACILLIN/TAZOB 4.5 GM 4.5 GM in DEXTROSE 5%-WATER 100 ML IVPB ONE (07:11)
[2023-02-02] MEDS ORDERED: VANCOMYCIN 1,000 MG in DEXTROSE 5%-WATER - 250 ML IVPB ONE (07:11)
[2023-02-02 07:13] LABS: BASO % 0.4 % (0-2.0); EOS % 0.1 % (0-4.5); HEMATOCRIT 20.6 % (35.4-49); MCH 26.7 pg (25.7-33.7); MCHC 31.7 g/dl (32.0-35.9); MEAN CELL VOLUME 84.1 fl (80-96); MEAN PLT VOLUME 6.3 fl (7.5-11.1); MONO % 4.6 % (3.8-10.2); NEUT % 89.9 % (42.8-82.8); PLATELET COUNT 497 10^3/uL (134-434); RBC 2.45 M/mm3 (4.00-5.60); RDW 15.8 % (11.9-15.9); WHITE BLOOD COUNT 19.9 K/mm3 (4.0-10.0)
[2023-02-02 07:19] LABS: HEMOGLOBIN 6.5 GM/dL (11.7-16.9)
[2023-02-02 07:30] LABS: CHLORIDE 103 mmol/L (98-107); SODIUM 134 mmol/L (136-145)
[2023-02-02 07:33] LABS: ALBUMIN 1.6 g/dl (3.4-5.0); ANION GAP 7 mmol/L (4-13); BLOOD UREA NITROGEN 13.5 mg/dL (7-18); CO2 24 mmol/L (21-32); GLUCOSE,RANDOM 93 mg/dL (74-106)
[2023-02-02 07:36] LABS: CREATININE 0.7 mg/dL (0.55-1.3); SGOT/AST 37 U/L (15-37); SGPT/ALT 33 U/L (13-61)
[2023-02-02 07:37] LABS: BILIRUBIN,TOTAL 0.5 mg/dL (0.2-1); TOT PROT 5.6 g/dl (6.4-8.2)
[2023-02-02 07:39] LABS: ALK PHOS 71 U/L (45-117)
[2023-02-02 07:41] LABS: INR 3.42 (0.83-1.09); PROTHROMBIN TIME (PATIENT) 39.2 SEC (9.7-13.0)
[2023-02-02 07:42] LABS: LACTIC ACID 4.7 mmol/L (0.4-2.0)
[2023-02-02] MEDS ORDERED: PIPERACILLIN/TAZOB 4.5 GM 4.5 GM/100 ML BAG IVPB ONE (08:26)
[2023-02-02] MEDS ORDERED: VANCOMYCIN 1 GRAM (PRE-DOCKED) 1,000 MG/250 ML BAG IVPB ONE (08:26)
[2023-02-02 09:12] LABS: LACTIC ACID 14.9 mmol/L (0.4-2.0)
[2023-02-02] MEDS ORDERED: LIDOCAINE HCL 1%, 10 MG/ML (20ML VIAL) ONE (09:29)
[2023-02-02] MEDS ORDERED: ACETAMINOPHEN INJECTION 100 ML IVPB ONE (09:39)
[2023-02-02] MEDS ORDERED: ACETAMINOPHEN 1000 MG/100 ML BAG IVPB ONE (09:39)
[2023-02-02 09:46] LABS: URINE APPEARANCE CLOUDY; URINE COLOR RED
[2023-02-02 09:47] LABS: URINE BILIRUBIN MODERATE (NEGATIVE); URINE GLUCOSE (UA) NEGATIVE (NEGATIVE)
[2023-02-02 09:48] LABS: URINE UROBILINOGEN 0.2 mg/dL (0.2-1.0)
[2023-02-02 09:49] LABS: URINE PROTEIN 3+ (NEGATIVE)
[2023-02-02 09:56] LABS: EPI CELLS >30 /uL (0-25.1); HYALINE CASTS 3 /uL (0-3.1); URINE BACTERIA 24 /uL (0-1359); URINE RBC 3953 /uL (0-23.9); URINE WBC 198 /uL (0-25.8)
[2023-02-02] MEDS ORDERED: NOREPINEPHRINE BITARTRATE/D5W 8 MG/250 ML BAG IVPB ONE (11:44)
[2023-02-02] MEDS: NOREPINEPHRINE BITARTRATE/D5W 8 MG/250 ML BAG IVPB SCH (11:53)
[2023-02-02 12:50] LABS: URINE COLOR YELLOW
[2023-02-02 12:51] LABS: PH,URINE 5.5 (5.0-8.0); URINE APPEARANCE TURBID; URINE BILIRUBIN NEGATIVE (NEGATIVE); URINE GLUCOSE (UA) NEGATIVE (NEGATIVE); URINE KETONE NEGATIVE (NEGATIVE); URINE PROTEIN 1+ (NEGATIVE)
[2023-02-02 12:52] LABS: EPI CELLS 13.1 /uL (0-25.1); URINE BACTERIA 118.3 /uL (0-1359); URINE LEUK ESTERASE 3+ (NEGATIVE); URINE NITRITE NEGATIVE (NEGATIVE); URINE WBC 5795.5 /uL (0-25.8)
[2023-02-02] MEDS ORDERED: DEXTROSE 5%-WATER - 1,000 ML IV SCH (13:00)
[2023-02-02 13:03] LABS: LACTIC ACID 10.9 mmol/L (0.4-2.0)
[2023-02-02] MEDS ORDERED: VANCOMYCIN 1,000 MG in DEXTROSE 5%-WATER - 250 ML IVPB SCH (13:30)
[2023-02-02] MEDS: LACTATED RINGERS SOLUTION 1,000 ML/1,000 ML INFUS.BAG IV SCH (14:19)
[2023-02-02] MEDS: MEROPENEM 1 GM in DEXTROSE 5%-WATER 100 ML IVPB SCH (16:30)
[2023-02-02] MEDS: PANTOPRAZOLE SODIUM 40 MG VIAL IVPUSH SCH (16:30)
[2023-02-02] MEDS ORDERED: PIPERACILLIN/TAZOB 3.375 GM 3.375 GM in DEXTROSE 5%-WATER - 50 ML IVPB SCH (18:00)
[2023-02-02] MEDS ORDERED: VANCOMYCIN/WATER FOR INJ (PEG) 1,000 MG/200 ML BAG IVPB SCH (20:00)
[2023-02-02 20:18] LABS: BASO % 0.2 % (0-2.0); HEMATOCRIT 28.1 % (35.4-49); HEMOGLOBIN 9.2 GM/dL (11.7-16.9); LYMPH % 2.5 % (8-40); MCH 27.8 pg (25.7-33.7); MCHC 32.9 g/dl (32.0-35.9); MEAN CELL VOLUME 84.5 fl (80-96); MEAN PLT VOLUME 6.3 fl (7.5-11.1); NEUT % 94.3 % (42.8-82.8); PLATELET COUNT 527 10^3/uL (134-434); RBC 3.33 M/mm3 (4.00-5.60); RDW 14.7 % (11.9-15.9); WHITE BLOOD COUNT 24.3 K/mm3 (4.0-10.0)
[2023-02-02] MEDS ORDERED: oxyCODONE HCL 5 MG TABLET PO PRN (20:57)
[2023-02-02] MEDS: VANCOMYCIN/WATER FOR INJ (PEG) 1,000 MG/200 ML BAG IVPB SCH (21:03)
[2023-02-02] MEDS: CHLORHEXIDINE GLUCONATE 4% CLEANSER FOR DECOLONIZATION TP SCH (21:03)
[2023-02-02] MEDS: MUPIROCIN 2% TOPICAL OINTMENT FOR DECOLONIZATION NS SCH (21:03)
[2023-02-02] MEDS: ACETAMINOPHEN 500 MG TABLET (FP) PO PRN (21:14)
[2023-02-03] MEDS: MEROPENEM 1 GM in DEXTROSE 5%-WATER 100 ML IVPB SCH ×3 (01:07→17:30)
[2023-02-03] MEDS: oxyCODONE HCL 5 MG TABLET PO PRN ×3 (01:20→19:30)
[2023-02-03] MEDS: LACTATED RINGERS SOLUTION 1,000 ML/1,000 ML INFUS.BAG IV SCH ×2 (05:52→14:45)
[2023-02-03 07:19] LABS: BASO % 0.4 % (0-2.0); EOS % 0.9 % (0-4.5); HEMATOCRIT 25.8 % (35.4-49); HEMOGLOBIN 8.8 GM/dL (11.7-16.9); LYMPH % 7.1 % (8-40); MCH 28.5 pg (25.7-33.7); MEAN CELL VOLUME 83.8 fl (80-96); MEAN PLT VOLUME 6.5 fl (7.5-11.1); MONO % 6.3 % (3.8-10.2); NEUT % 85.3 % (42.8-82.8); PLATELET COUNT 445 10^3/uL (134-434); RBC 3.08 M/mm3 (4.00-5.60); RDW 14.6 % (11.9-15.9); WHITE BLOOD COUNT 15.8 K/mm3 (4.0-10.0)
[2023-02-03 07:20] LABS: POTASSIUM 3.4 mmol/L (3.5-5.1)
[2023-02-03 07:37] LABS: ALBUMIN 1.5 g/dl (3.4-5.0); CALCIUM 8.6 mg/dL (8.5-10.1); MAGNESIUM 1.5 mg/dL (1.8-2.4)
[2023-02-03 07:40] LABS: CREATININE 0.5 mg/dL (0.55-1.3); PHOSPHOROUS 2.7 mg/dL (2.5-4.9)
[2023-02-03 07:41] LABS: BILIRUBIN,TOTAL 0.5 mg/dL (0.2-1); TOT PROT 5.6 g/dl (6.4-8.2)
[2023-02-03] MEDS ORDERED: MAGNESIUM SULFATE IN WATER 2 GM/50 ML IVPB IVPB ONE (08:46)
[2023-02-03] MEDS: VANCOMYCIN/WATER FOR INJ (PEG) 1,000 MG/200 ML BAG IVPB SCH ×2 (09:15→20:47)
[2023-02-03] MEDS ORDERED: KCL 20 MEQ PREMIX BAG 100 ML IVPB ONE (10:00)
[2023-02-03] MEDS: MUPIROCIN 2% TOPICAL OINTMENT FOR DECOLONIZATION NS SCH ×2 (10:38→21:15)
[2023-02-03] MEDS: NOREPINEPHRINE BITARTRATE/D5W 8 MG/250 ML BAG IVPB SCH (12:55)
[2023-02-03] MEDS: ACETAMINOPHEN 500 MG TABLET (FP) PO PRN (12:56)
[2023-02-03] MEDS: PANTOPRAZOLE SODIUM 40 MG VIAL IVPUSH SCH (13:07)
[2023-02-03] MEDS: CHLORHEXIDINE GLUCONATE 4% CLEANSER FOR DECOLONIZATION TP SCH (21:15)
[2023-02-04] MEDS: MEROPENEM 1 GM in DEXTROSE 5%-WATER 100 ML IVPB SCH ×3 (02:07→17:08)
[2023-02-04 07:30] LABS: BASO % 0.4 % (0-2.0); HEMATOCRIT 26.8 % (35.4-49); LYMPH % 10.3 % (8-40); MCH 28.2 pg (25.7-33.7); MCHC 33.4 g/dl (32.0-35.9); MEAN CELL VOLUME 84.2 fl (80-96); MEAN PLT VOLUME 6.8 fl (7.5-11.1); MONO % 7.9 % (3.8-10.2); NEUT % 80.4 % (42.8-82.8); PLATELET COUNT 476 10^3/uL (134-434); RBC 3.18 M/mm3 (4.00-5.60); RDW 15.3 % (11.9-15.9); WHITE BLOOD COUNT 10.7 K/mm3 (4.0-10.0)
[2023-02-04 07:44] LABS: POTASSIUM 3.7 mmol/L (3.5-5.1)
[2023-02-04 07:48] LABS: ALBUMIN 1.6 g/dl (3.4-5.0); CALCIUM 8.5 mg/dL (8.5-10.1)
[2023-02-04 07:49] LABS: BLOOD UREA NITROGEN 9.1 mg/dL (7-18)
[2023-02-04 07:50] LABS: MAGNESIUM 1.6 mg/dL (1.8-2.4)
[2023-02-04 07:51] LABS: CREATININE 0.5 mg/dL (0.55-1.3); PHOSPHOROUS 2.6 mg/dL (2.5-4.9)
[2023-02-04 07:55] LABS: TOT PROT 5.5 g/dl (6.4-8.2)
[2023-02-04 08:16] LABS: BILIRUBIN,TOTAL 0.4 mg/dL (0.2-1)
[2023-02-04] MEDS: PANTOPRAZOLE SODIUM 40 MG VIAL IVPUSH SCH (09:59)
[2023-02-04] MEDS: VANCOMYCIN/WATER FOR INJ (PEG) 1,000 MG/200 ML BAG IVPB SCH (10:00)
[2023-02-04] MEDS: MUPIROCIN 2% TOPICAL OINTMENT FOR DECOLONIZATION NS SCH ×2 (10:00→21:10)
[2023-02-04] MEDS: oxyCODONE HCL 5 MG TABLET PO PRN ×2 (10:06→19:39)
[2023-02-04 19:38] VITALS: BMI 19.8
[2023-02-04] MEDS: NOREPINEPHRINE BITARTRATE/D5W 8 MG/250 ML BAG IVPB SCH (19:38)
[2023-02-04] MEDS: CHLORHEXIDINE GLUCONATE 4% CLEANSER FOR DECOLONIZATION TP SCH (21:10)
[2023-02-04] MEDS: ASCORBIC ACID 500 MG TABLET (FP) PO SCH (21:11)
[2023-02-05] MEDS: oxyCODONE HCL 5 MG TABLET PO PRN ×5 (00:22→21:12)
[2023-02-05] MEDS: MEROPENEM 1 GM in DEXTROSE 5%-WATER 100 ML IVPB SCH ×3 (01:00→17:19)
[2023-02-05] MEDS ORDERED: oxyCODONE HCL 5 MG TABLET PO PRN (06:59)
[2023-02-05] MEDS ORDERED: AMINO ACIDS/PROTEIN HYDROLYS 30 ML LIQUID.PKT PO SCH (08:00)
[2023-02-05 08:17] LABS: POTASSIUM 4.8 mmol/L (3.5-5.1)
[2023-02-05 08:19] LABS: CALCIUM 9.4 mg/dL (8.5-10.1)
[2023-02-05 08:20] LABS: MAGNESIUM 1.6 mg/dL (1.8-2.4)
[2023-02-05 08:22] LABS: BASO % 0.6 % (0-2.0); EOS % 0.7 % (0-4.5); HEMATOCRIT 34.5 % (35.4-49); HEMOGLOBIN 11.4 GM/dL (11.7-16.9); LYMPH % 17.4 % (8-40); MCHC 33.1 g/dl (32.0-35.9); MEAN CELL VOLUME 84.5 fl (80-96); MEAN PLT VOLUME 6.6 fl (7.5-11.1); MONO % 6.4 % (3.8-10.2); NEUT % 74.9 % (42.8-82.8); PLATELET COUNT 601 10^3/uL (134-434); RBC 4.09 M/mm3 (4.00-5.60); RDW 15.6 % (11.9-15.9); WHITE BLOOD COUNT 12.8 K/mm3 (4.0-10.0)
[2023-02-05 08:23] LABS: CREATININE 0.5 mg/dL (0.55-1.3); PHOSPHOROUS 3.3 mg/dL (2.5-4.9)
[2023-02-05] MEDS ORDERED: MULTIVITAMINS (DAILY MVI) TABLET (FP) PO SCH (10:00)
[2023-02-05] MEDS ORDERED: PANTOPRAZOLE SODIUM 40 MG VIAL IVPUSH SCH (10:00)
[2023-02-05] MEDS ORDERED: ZINC SULFATE 220 MG CAPSULE (FP) PO SCH (10:00)
[2023-02-05] MEDS ORDERED: MEROPENEM 1 GM in DEXTROSE 5%-WATER 100 ML IVPB SCH (10:00)
[2023-02-05] MEDS: AMINO ACIDS/PROTEIN HYDROLYS 30 ML LIQUID.PKT PO SCH ×2 (10:02→17:19)
[2023-02-05] MEDS: ASCORBIC ACID 500 MG TABLET (FP) PO SCH ×2 (10:03→21:12)
[2023-02-06] MEDS: MEROPENEM 1 GM in DEXTROSE 5%-WATER 100 ML IVPB SCH ×4 (02:33→19:18)
[2023-02-06] MEDS: oxyCODONE HCL 5 MG TABLET PO PRN ×3 (05:29→21:33)
[2023-02-06] MEDS ORDERED: LIDOCAINE HCL 1%, 10 MG/ML (20ML VIAL) ONE (07:29)
[2023-02-06] MEDS ORDERED: ROCURONIUM BROMIDE 50 MG/5 ML SYRINGE ONE ×2 (07:32→08:58)
[2023-02-06] MEDS ORDERED: SUCCINYLCHOLINE CHLORIDE 200 MG/10 ML SYRINGE ONE (07:32)
[2023-02-06] MEDS ORDERED: KETOROLAC TROMETHAMINE 30 MG/1 ML VIAL ONE (07:36)
[2023-02-06] MEDS ORDERED: LIDOCAINE HCL/PF 2% SDV 5ML VIAL ONE (07:36)
[2023-02-06] MEDS ORDERED: SODIUM CHLORIDE 0.9% P/F 10 ML VIAL IJ ONE (07:36)
[2023-02-06] MEDS ORDERED: ONDANSETRON 4 MG/2 ML VIAL ONE (07:36)
[2023-02-06] MEDS ORDERED: DEXAMETHASONE SOD PHOSPHATE 4 MG/1 ML VIAL ONE (07:36)
[2023-02-06] MEDS ORDERED: MIDAZOLAM HCL 2 MG/2 ML SINGLE DOSE VIAL ONE (07:37)
[2023-02-06] MEDS ORDERED: PROPOFOL 20 ML ONE ×2 (07:38→08:58)
[2023-02-06] MEDS ORDERED: BUPIVACAINE HCL/PF 0.5% (5MG/ML) 10 ML VIAL ONE (08:04)
[2023-02-06] MEDS: AMINO ACIDS/PROTEIN HYDROLYS 30 ML LIQUID.PKT PO SCH ×2 (08:24→17:32)
[2023-02-06] MEDS ORDERED: MAGNESIUM SULF 50% (8.12 MEQ/2 ML-1 GM VIAL) ONE (08:30)
[2023-02-06] MEDS ORDERED: ACETAMINOPHEN INJECTION 100 ML IVPB ONE (08:50)
[2023-02-06] MEDS ORDERED: SUGAMMADEX SODIUM 200 MG/2 ML VIAL ONE (08:51)
[2023-02-06] MEDS ORDERED: HYDROmorphone HCl 2 MG/ML VIAL ONE (08:52)
[2023-02-06] MEDS ORDERED: ONDANSETRON 4 MG/2 ML VIAL IVPUSH PRN (09:31)
[2023-02-06] MEDS ORDERED: oxyCODONE HCL 5 MG TABLET PO PRN (09:58)
[2023-02-06] MEDS: LACTATED RINGERS SOLUTION 1,000 ML IV SCH (10:30)
[2023-02-06] MEDS: ASCORBIC ACID 500 MG TABLET (FP) PO SCH ×2 (11:16→21:32)
[2023-02-06] MEDS: PANTOPRAZOLE SODIUM 40 MG VIAL IVPUSH SCH (11:16)
[2023-02-06] MEDS: ZINC SULFATE 220 MG CAPSULE (FP) PO SCH (11:16)
[2023-02-06] MEDS: MULTIVITAMINS (DAILY MVI) TABLET (FP) PO SCH (11:16)
[2023-02-07] MEDS: MEROPENEM 1 GM in DEXTROSE 5%-WATER 100 ML IVPB SCH ×3 (02:41→17:50)
[2023-02-07] MEDS: oxyCODONE HCL 5 MG TABLET PO PRN ×5 (03:38→22:35)
[2023-02-07] MEDS: AMINO ACIDS/PROTEIN HYDROLYS 30 ML LIQUID.PKT PO SCH ×2 (08:30→16:55)
[2023-02-07] MEDS: ZINC SULFATE 220 MG CAPSULE (FP) PO SCH (10:18)
[2023-02-07] MEDS: ASCORBIC ACID 500 MG TABLET (FP) PO SCH ×2 (10:18→21:48)
[2023-02-07] MEDS: MULTIVITAMINS (DAILY MVI) TABLET (FP) PO SCH (10:18)
[2023-02-07] MEDS: LACTATED RINGERS SOLUTION 1,000 ML IV SCH ×2 (12:07→22:25)
[2023-02-07] MEDS: PANTOPRAZOLE SODIUM 40 MG VIAL IVPUSH SCH (12:07)
[2023-02-08] MEDS: MEROPENEM 1 GM in DEXTROSE 5%-WATER 100 ML IVPB SCH ×3 (02:01→18:33)
[2023-02-08] MEDS: oxyCODONE HCL 5 MG TABLET PO PRN ×4 (02:32→21:48)
[2023-02-08 07:44] LABS: BASO % 0.2 % (0-2.0); EOS % 0.2 % (0-4.5); HEMOGLOBIN 11.1 GM/dL (11.7-16.9); MCH 27.7 pg (25.7-33.7); MCHC 32.6 g/dl (32.0-35.9); MEAN CELL VOLUME 85.1 fl (80-96); MEAN PLT VOLUME 6.4 fl (7.5-11.1); MONO % 6.8 % (3.8-10.2); NEUT % 81.8 % (42.8-82.8); PLATELET COUNT 624 10^3/uL (134-434); RBC 3.99 M/mm3 (4.00-5.60); RDW 15.8 % (11.9-15.9); WHITE BLOOD COUNT 15.2 K/mm3 (4.0-10.0)
[2023-02-08 08:16] LABS: POTASSIUM 3.7 mmol/L (3.5-5.1)
[2023-02-08] MEDS: AMINO ACIDS/PROTEIN HYDROLYS 30 ML LIQUID.PKT PO SCH ×2 (08:35→16:52)
[2023-02-08 08:37] LABS: CALCIUM 9.4 mg/dL (8.5-10.1)
[2023-02-08] MEDS: LACTATED RINGERS SOLUTION 1,000 ML IV SCH ×3 (08:38→21:45)
[2023-02-08 08:39] LABS: BLOOD UREA NITROGEN 11.8 mg/dL (7-18)
[2023-02-08 08:41] LABS: CREATININE 0.4 mg/dL (0.55-1.3); TOT PROT 6.4 g/dl (6.4-8.2)
[2023-02-08 08:42] LABS: BILIRUBIN,TOTAL 0.3 mg/dL (0.2-1)
[2023-02-08 08:44] LABS: ALBUMIN 1.9 g/dl (3.4-5.0)
[2023-02-08] MEDS: PANTOPRAZOLE 40 MG TABLET PO SCH (11:31)
[2023-02-08] MEDS: ZINC SULFATE 220 MG CAPSULE (FP) PO SCH (11:32)
[2023-02-08] MEDS: MULTIVITAMINS (DAILY MVI) TABLET (FP) PO SCH (11:32)
[2023-02-08] MEDS: ASCORBIC ACID 500 MG TABLET (FP) PO SCH ×2 (11:33→21:45)
[2023-02-08] MEDS: POLYETHYLENE GLYCOL (HEALTHYLAX) 3350 17 GM PACKET PO SCH ×2 (14:51→21:45)
[2023-02-08] MEDS: ASPIRIN 81 MG CHEWABLE TABLETS PO SCH (14:51)
[2023-02-08] MEDS: MINERAL OIL/PET HY-PHL TOPICAL OINTMENT 454 GM JAR TP SCH (16:52)
[2023-02-09] MEDS: LACTATED RINGERS SOLUTION 1,000 ML IV SCH ×3 (03:48→21:54)
[2023-02-09] MEDS: MEROPENEM 1 GM in DEXTROSE 5%-WATER 100 ML IVPB SCH ×3 (03:48→18:00)
[2023-02-09] MEDS: POLYETHYLENE GLYCOL (HEALTHYLAX) 3350 17 GM PACKET PO SCH ×3 (05:11→21:02)
[2023-02-09] MEDS: AMINO ACIDS/PROTEIN HYDROLYS 30 ML LIQUID.PKT PO SCH ×2 (09:45→17:34)
[2023-02-09] MEDS: MULTIVITAMINS (DAILY MVI) TABLET (FP) PO SCH (09:48)
[2023-02-09] MEDS: ASCORBIC ACID 500 MG TABLET (FP) PO SCH ×2 (09:48→21:02)
[2023-02-09] MEDS: MINERAL OIL/PET HY-PHL TOPICAL OINTMENT 454 GM JAR TP SCH (09:48)
[2023-02-09] MEDS: ASPIRIN 81 MG CHEWABLE TABLETS PO SCH (09:48)
[2023-02-09] MEDS: PANTOPRAZOLE 40 MG TABLET PO SCH (09:48)
[2023-02-09] MEDS: ZINC SULFATE 220 MG CAPSULE (FP) PO SCH (09:48)
[2023-02-09] MEDS: ACETAMINOPHEN 500 MG TABLET (FP) PO PRN (21:01)
[2023-02-09] MEDS ORDERED: morphine CARPU-JECT 2 MG/1 ML DISP.SYRIN IVPUSH PRN (21:30)
[2023-02-10] MEDS: MEROPENEM 1 GM in DEXTROSE 5%-WATER 100 ML IVPB SCH ×3 (01:48→17:58)
[2023-02-10] MEDS: POLYETHYLENE GLYCOL (HEALTHYLAX) 3350 17 GM PACKET PO SCH ×3 (05:50→22:13)
[2023-02-10] MEDS: LACTATED RINGERS SOLUTION 1,000 ML IV SCH ×3 (05:51→20:49)
[2023-02-10] MEDS: AMINO ACIDS/PROTEIN HYDROLYS 30 ML LIQUID.PKT PO SCH ×2 (08:42→17:58)
[2023-02-10] MEDS: ASCORBIC ACID 500 MG TABLET (FP) PO SCH ×2 (09:41→22:13)
[2023-02-10] MEDS: ZINC SULFATE 220 MG CAPSULE (FP) PO SCH (09:41)
[2023-02-10] MEDS: ASPIRIN 81 MG CHEWABLE TABLETS PO SCH (09:42)
[2023-02-10] MEDS: PANTOPRAZOLE 40 MG TABLET PO SCH (09:42)
[2023-02-10] MEDS: MINERAL OIL/PET HY-PHL TOPICAL OINTMENT 454 GM JAR TP SCH (09:42)
[2023-02-10] MEDS: MULTIVITAMINS (DAILY MVI) TABLET (FP) PO SCH (09:42)
[2023-02-10] MEDS: ACETAMINOPHEN 500 MG TABLET (FP) PO PRN ×2 (12:29→22:13)
[2023-02-10] MEDS: SIMETHICONE 80 MG TAB.CHEW (FP) PO PRN (12:29)
[2023-02-11] MEDS: MEROPENEM 1 GM in DEXTROSE 5%-WATER 100 ML IVPB SCH ×3 (01:14→17:45)
[2023-02-11] MEDS: POLYETHYLENE GLYCOL (HEALTHYLAX) 3350 17 GM PACKET PO SCH ×3 (05:26→21:52)
[2023-02-11] MEDS: LACTATED RINGERS SOLUTION 1,000 ML IV SCH ×4 (05:38→16:12)
[2023-02-11] MEDS: AMINO ACIDS/PROTEIN HYDROLYS 30 ML LIQUID.PKT PO SCH ×2 (08:36→17:45)
[2023-02-11 09:47] LABS: BASO % 0.8 % (0-2.0); EOS % 1.4 % (0-4.5); HEMATOCRIT 27.6 % (35.4-49); HEMOGLOBIN 9.4 GM/dL (11.7-16.9); LYMPH % 18.5 % (8-40); MCHC 34.2 g/dl (32.0-35.9); MEAN PLT VOLUME 6.6 fl (7.5-11.1); MONO % 10.5 % (3.8-10.2); NEUT % 68.8 % (42.8-82.8); PLATELET COUNT 557 10^3/uL (134-434); RBC 3.25 M/mm3 (4.00-5.60); RDW 16.8 % (11.9-15.9)
[2023-02-11] MEDS: PANTOPRAZOLE 40 MG TABLET PO SCH (09:51)
[2023-02-11] MEDS: ASCORBIC ACID 500 MG TABLET (FP) PO SCH ×2 (09:51→21:53)
[2023-02-11] MEDS: MULTIVITAMINS (DAILY MVI) TABLET (FP) PO SCH (09:51)
[2023-02-11] MEDS: ZINC SULFATE 220 MG CAPSULE (FP) PO SCH (09:51)
[2023-02-11] MEDS: ASPIRIN 81 MG CHEWABLE TABLETS PO SCH (09:51)
[2023-02-11] MEDS: MINERAL OIL/PET HY-PHL TOPICAL OINTMENT 454 GM JAR TP SCH (09:52)
[2023-02-11 10:30] LABS: ALBUMIN 1.8 g/dl (3.4-5.0); BLOOD UREA NITROGEN 8.5 mg/dL (7-18); CALCIUM 9.2 mg/dL (8.5-10.1)
[2023-02-11 10:33] LABS: CREATININE 0.4 mg/dL (0.55-1.3)
[2023-02-11 10:34] LABS: TOT PROT 5.7 g/dl (6.4-8.2)
[2023-02-11 10:35] LABS: BILIRUBIN,TOTAL 0.3 mg/dL (0.2-1)
[2023-02-11] MEDS: ACETAMINOPHEN 500 MG TABLET (FP) PO PRN ×2 (13:08→23:19)
[2023-02-11] MEDS: SIMETHICONE 80 MG TAB.CHEW (FP) PO PRN (17:45)
[2023-02-11] MEDS ORDERED: TRIMETHOBENZAMIDE HCL 200MG/2ML INJ IM ONE (21:17)
[2023-02-11] MEDS ORDERED: TRIMETHOBENZAMIDE HCL 200MG/2ML INJ IM PRN (21:20)
[2023-02-11] MEDS: MELATONIN 5 MG TABLETS PO PRN (23:52)
[2023-02-12] MEDS: MEROPENEM 1 GM in DEXTROSE 5%-WATER 100 ML IVPB SCH ×3 (01:28→17:36)
[2023-02-12] MEDS: SIMETHICONE 80 MG TAB.CHEW (FP) PO PRN (03:31)
[2023-02-12] MEDS: POLYETHYLENE GLYCOL (HEALTHYLAX) 3350 17 GM PACKET PO SCH ×3 (06:11→21:56)
[2023-02-12] MEDS: LACTATED RINGERS SOLUTION 1,000 ML IV SCH ×2 (06:22→12:34)
[2023-02-12] MEDS: AMINO ACIDS/PROTEIN HYDROLYS 30 ML LIQUID.PKT PO SCH ×2 (08:39→17:36)
[2023-02-12 10:12] LABS: BASO % 0.8 % (0-2.0); EOS % 0.5 % (0-4.5); HEMATOCRIT 32.4 % (35.4-49); HEMOGLOBIN 10.7 GM/dL (11.7-16.9); LYMPH % 14.2 % (8-40); MCH 28.2 pg (25.7-33.7); MEAN CELL VOLUME 85.4 fl (80-96); MEAN PLT VOLUME 6.5 fl (7.5-11.1); MONO % 8.2 % (3.8-10.2); NEUT % 76.3 % (42.8-82.8); PLATELET COUNT 649 10^3/uL (134-434); RBC 3.79 M/mm3 (4.00-5.60); RDW 17.3 % (11.9-15.9); WHITE BLOOD COUNT 10.4 K/mm3 (4.0-10.0)
[2023-02-12 10:27] LABS: POTASSIUM 3.8 mmol/L (3.5-5.1)
[2023-02-12 10:29] LABS: CALCIUM 9.9 mg/dL (8.5-10.1)
[2023-02-12 10:30] LABS: ALBUMIN 1.9 g/dl (3.4-5.0); BLOOD UREA NITROGEN 8.4 mg/dL (7-18)
[2023-02-12 10:33] LABS: CREATININE 0.4 mg/dL (0.55-1.3)
[2023-02-12 10:34] LABS: BILIRUBIN,TOTAL 0.4 mg/dL (0.2-1); TOT PROT 6.1 g/dl (6.4-8.2)
[2023-02-12] MEDS: ASPIRIN 81 MG CHEWABLE TABLETS PO SCH (11:17)
[2023-02-12] MEDS: MULTIVITAMINS (DAILY MVI) TABLET (FP) PO SCH (11:17)
[2023-02-12] MEDS: PANTOPRAZOLE 40 MG TABLET PO SCH (11:17)
[2023-02-12] MEDS: ZINC SULFATE 220 MG CAPSULE (FP) PO SCH (11:17)
[2023-02-12] MEDS: ASCORBIC ACID 500 MG TABLET (FP) PO SCH ×2 (11:17→21:56)
[2023-02-12] MEDS: MINERAL OIL/PET HY-PHL TOPICAL OINTMENT 454 GM JAR TP SCH (11:18)
[2023-02-12] MEDS: MELATONIN 5 MG TABLETS PO PRN (21:56)
[2023-02-13] MEDS: MEROPENEM 1 GM in DEXTROSE 5%-WATER 100 ML IVPB SCH ×2 (02:38→10:27)
[2023-02-13] MEDS: POLYETHYLENE GLYCOL (HEALTHYLAX) 3350 17 GM PACKET PO SCH ×3 (06:34→22:34)
[2023-02-13] MEDS: AMINO ACIDS/PROTEIN HYDROLYS 30 ML LIQUID.PKT PO SCH ×2 (08:06→18:50)
[2023-02-13 09:16] LABS: BASO % 0.7 % (0-2.0); EOS % 0.9 % (0-4.5); HEMATOCRIT 29.7 % (35.4-49); HEMOGLOBIN 9.7 GM/dL (11.7-16.9); LYMPH % 23.1 % (8-40); MCH 28.2 pg (25.7-33.7); MCHC 32.8 g/dl (32.0-35.9); MEAN CELL VOLUME 86.1 fl (80-96); MEAN PLT VOLUME 6.7 fl (7.5-11.1); MONO % 8.4 % (3.8-10.2); NEUT % 66.9 % (42.8-82.8); PLATELET COUNT 630 10^3/uL (134-434); RBC 3.45 M/mm3 (4.00-5.60); RDW 17.5 % (11.9-15.9); WHITE BLOOD COUNT 8.3 K/mm3 (4.0-10.0)
[2023-02-13 09:53] LABS: POTASSIUM 3.9 mmol/L (3.5-5.1)
[2023-02-13 10:01] LABS: ALBUMIN 1.8 g/dl (3.4-5.0); BLOOD UREA NITROGEN 14.4 mg/dL (7-18); CREATININE 0.4 mg/dL (0.55-1.3)
[2023-02-13 10:02] LABS: TOT PROT 5.8 g/dl (6.4-8.2)
[2023-02-13 10:03] LABS: BILIRUBIN,TOTAL 0.4 mg/dL (0.2-1)
[2023-02-13 10:05] LABS: CALCIUM 9.2 mg/dL (8.5-10.1)
[2023-02-13] MEDS: ZINC SULFATE 220 MG CAPSULE (FP) PO SCH (10:26)
[2023-02-13] MEDS: ASCORBIC ACID 500 MG TABLET (FP) PO SCH ×2 (10:26→22:34)
[2023-02-13] MEDS: ASPIRIN 81 MG CHEWABLE TABLETS PO SCH (10:26)
[2023-02-13] MEDS: PANTOPRAZOLE 40 MG TABLET PO SCH (10:27)
[2023-02-13] MEDS: MINERAL OIL/PET HY-PHL TOPICAL OINTMENT 454 GM JAR TP SCH (10:27)
[2023-02-13] MEDS: MULTIVITAMINS (DAILY MVI) TABLET (FP) PO SCH (10:27)
[2023-02-13] MEDS: LACTATED RINGERS SOLUTION 1,000 ML IV SCH (18:30)
[2023-02-13] MEDS: ACETAMINOPHEN 500 MG TABLET (FP) PO PRN (18:50)
[2023-02-13] MEDS: MELATONIN 5 MG TABLETS PO PRN (22:34)
[2023-02-14] MEDS: POLYETHYLENE GLYCOL (HEALTHYLAX) 3350 17 GM PACKET PO SCH (05:18)
[2023-02-14 09:05] LABS: BASO % 0.8 % (0-2.0); EOS % 0.8 % (0-4.5); HEMATOCRIT 29.1 % (35.4-49); HEMOGLOBIN 9.6 GM/dL (11.7-16.9); LYMPH % 18.2 % (8-40); MCH 28.4 pg (25.7-33.7); MCHC 33.2 g/dl (32.0-35.9); MEAN CELL VOLUME 85.5 fl (80-96); MEAN PLT VOLUME 6.5 fl (7.5-11.1); MONO % 6.7 % (3.8-10.2); NEUT % 73.5 % (42.8-82.8); PLATELET COUNT 647 10^3/uL (134-434); WHITE BLOOD COUNT 9.5 K/mm3 (4.0-10.0)
[2023-02-14 09:09] LABS: POTASSIUM 3.9 mmol/L (3.5-5.1)
[2023-02-14 09:14] LABS: BLOOD UREA NITROGEN 14.5 mg/dL (7-18); CALCIUM 9.7 mg/dL (8.5-10.1)
[2023-02-14 09:17] LABS: CREATININE 0.4 mg/dL (0.55-1.3); PHOSPHOROUS 3.3 mg/dL (2.5-4.9)
[2023-02-14] MEDS: ERTAPENEM SODIUM 1 GM in SODIUM CHLORIDE 50 ML IVPB SCH (11:21)
[2023-02-14] MEDS: PANTOPRAZOLE 40 MG TABLET PO SCH (11:21)
[2023-02-14] MEDS: ASPIRIN 81 MG CHEWABLE TABLETS PO SCH (11:22)
[2023-02-14] MEDS: MULTIVITAMINS (DAILY MVI) TABLET (FP) PO SCH (11:22)
[2023-02-14] MEDS: AMINO ACIDS/PROTEIN HYDROLYS 30 ML LIQUID.PKT PO SCH ×2 (11:22→17:50)
[2023-02-14] MEDS: ASCORBIC ACID 500 MG TABLET (FP) PO SCH ×2 (11:22→22:33)
[2023-02-14] MEDS: ZINC SULFATE 220 MG CAPSULE (FP) PO SCH (11:22)
[2023-02-14] MEDS: LACTATED RINGERS SOLUTION 1,000 ML IV SCH (11:23)
[2023-02-14] MEDS: MINERAL OIL/PET HY-PHL TOPICAL OINTMENT 454 GM JAR TP SCH (11:25)
[2023-02-14] MEDS: METOCLOPRAMIDE HCL 10 MG TABLET (FP) PO SCH (17:51)
[2023-02-15] MEDS: MELATONIN 5 MG TABLETS PO PRN ×2 (00:34→21:28)
[2023-02-15] MEDS: METOCLOPRAMIDE HCL 10 MG TABLET (FP) PO SCH (07:52)
[2023-02-15] MEDS ORDERED: METOCLOPRAMIDE HCL 10 MG TABLET (FP) PO PRN (08:44)
[2023-02-15] MEDS: AMINO ACIDS/PROTEIN HYDROLYS 30 ML LIQUID.PKT PO SCH ×2 (08:46→18:42)
[2023-02-15] MEDS: ACETAMINOPHEN 500 MG TABLET (FP) PO PRN ×2 (08:46→18:41)
[2023-02-15 09:25] LABS: HEMATOCRIT 33.1 % (35.4-49); HEMOGLOBIN 10.7 GM/dL (11.7-16.9); MCH 27.5 pg (25.7-33.7); MCHC 32.2 g/dl (32.0-35.9); MEAN CELL VOLUME 85.4 fl (80-96); MEAN PLT VOLUME 6.6 fl (7.5-11.1); PLATELET COUNT 691 10^3/uL (134-434); RBC 3.88 M/mm3 (4.00-5.60); RDW 17.5 % (11.9-15.9); WHITE BLOOD COUNT 9.2 K/mm3 (4.0-10.0)
[2023-02-15 09:35] LABS: INR 1.17 (0.83-1.09); PROTHROMBIN TIME (PATIENT) 13.6 SEC (9.7-13.0)
[2023-02-15 09:42] LABS: POTASSIUM 3.9 mmol/L (3.5-5.1)
[2023-02-15 09:46] LABS: CALCIUM 9.4 mg/dL (8.5-10.1)
[2023-02-15 09:47] LABS: BLOOD UREA NITROGEN 12.9 mg/dL (7-18)
[2023-02-15 09:50] LABS: CREATININE 0.4 mg/dL (0.55-1.3)
[2023-02-15] MEDS: POLYETHYLENE GLYCOL (HEALTHYLAX) 3350 17 GM PACKET PO SCH (10:04)
[2023-02-15] MEDS: ASCORBIC ACID 500 MG TABLET (FP) PO SCH ×2 (10:04→21:27)
[2023-02-15] MEDS: MULTIVITAMINS (DAILY MVI) TABLET (FP) PO SCH (10:04)
[2023-02-15] MEDS: ERTAPENEM SODIUM 1 GM in SODIUM CHLORIDE 50 ML IVPB SCH (10:04)
[2023-02-15] MEDS: PANTOPRAZOLE 40 MG TABLET PO SCH (10:04)
[2023-02-15] MEDS: ASPIRIN 81 MG CHEWABLE TABLETS PO SCH (10:04)
[2023-02-15] MEDS: ZINC SULFATE 220 MG CAPSULE (FP) PO SCH (10:04)
[2023-02-15] MEDS: MINERAL OIL/PET HY-PHL TOPICAL OINTMENT 454 GM JAR TP SCH (10:05)
[2023-02-15] MEDS: LACTATED RINGERS SOLUTION 1,000 ML IV SCH (18:41)
[2023-02-16 09:13] LABS: HEMATOCRIT 31.3 % (35.4-49); MCH 27.2 pg (25.7-33.7); MEAN PLT VOLUME 6.3 fl (7.5-11.1); PLATELET COUNT 664 10^3/uL (134-434); POTASSIUM 3.8 mmol/L (3.5-5.1); RBC 3.68 M/mm3 (4.00-5.60); RDW 17.8 % (11.9-15.9); WHITE BLOOD COUNT 8.2 K/mm3 (4.0-10.0)
[2023-02-16 09:16] LABS: CALCIUM 10.2 mg/dL (8.5-10.1)
[2023-02-16 09:17] LABS: BLOOD UREA NITROGEN 17.7 mg/dL (7-18)
[2023-02-16 09:20] LABS: CREATININE 0.4 mg/dL (0.55-1.3); PHOSPHOROUS 3.8 mg/dL (2.5-4.9)
[2023-02-16] MEDS: MULTIVITAMINS (DAILY MVI) TABLET (FP) PO SCH (10:22)
[2023-02-16] MEDS: ASPIRIN 81 MG CHEWABLE TABLETS PO SCH (10:22)
[2023-02-16] MEDS: ZINC SULFATE 220 MG CAPSULE (FP) PO SCH (10:22)
[2023-02-16] MEDS: AMINO ACIDS/PROTEIN HYDROLYS 30 ML LIQUID.PKT PO SCH ×2 (10:22→17:29)
[2023-02-16] MEDS: ERTAPENEM SODIUM 1 GM in SODIUM CHLORIDE 50 ML IVPB SCH (10:22)
[2023-02-16] MEDS: ASCORBIC ACID 500 MG TABLET (FP) PO SCH ×2 (10:22→21:43)
[2023-02-16] MEDS: PANTOPRAZOLE 40 MG TABLET PO SCH (10:22)
[2023-02-16] MEDS: POLYETHYLENE GLYCOL (HEALTHYLAX) 3350 17 GM PACKET PO SCH (10:23)
[2023-02-16] MEDS: MINERAL OIL/PET HY-PHL TOPICAL OINTMENT 454 GM JAR TP SCH (10:23)
[2023-02-16] MEDS: ACETAMINOPHEN 500 MG TABLET (FP) PO PRN (17:29)
[2023-02-17] MEDS: AMINO ACIDS/PROTEIN HYDROLYS 30 ML LIQUID.PKT PO SCH ×2 (09:49→17:47)
[2023-02-17] MEDS: PANTOPRAZOLE 40 MG TABLET PO SCH (09:50)
[2023-02-17] MEDS: ZINC SULFATE 220 MG CAPSULE (FP) PO SCH (09:50)
[2023-02-17] MEDS: ASCORBIC ACID 500 MG TABLET (FP) PO SCH ×2 (09:50→21:10)
[2023-02-17] MEDS: POLYETHYLENE GLYCOL (HEALTHYLAX) 3350 17 GM PACKET PO SCH (09:51)
[2023-02-17] MEDS: MULTIVITAMINS (DAILY MVI) TABLET (FP) PO SCH (09:51)
[2023-02-17] MEDS: ASPIRIN 81 MG CHEWABLE TABLETS PO SCH (09:51)
[2023-02-17 10:39] LABS: POTASSIUM 3.8 mmol/L (3.5-5.1)
[2023-02-17 10:46] LABS: CALCIUM 9.5 mg/dL (8.5-10.1)
[2023-02-17] MEDS: ERTAPENEM SODIUM 1 GM in SODIUM CHLORIDE 50 ML IVPB SCH (10:46)
[2023-02-17] MEDS: MINERAL OIL/PET HY-PHL TOPICAL OINTMENT 454 GM JAR TP SCH (10:46)
[2023-02-17 10:47] LABS: BLOOD UREA NITROGEN 14.9 mg/dL (7-18)
[2023-02-17 10:50] LABS: CREATININE 0.4 mg/dL (0.55-1.3)
[2023-02-17 11:07] LABS: HEMATOCRIT 30.2 % (35.4-49); HEMOGLOBIN 10.1 GM/dL (11.7-16.9); MCH 28.8 pg (25.7-33.7); MCHC 33.3 g/dl (32.0-35.9); MEAN CELL VOLUME 86.3 fl (80-96); MEAN PLT VOLUME 6.6 fl (7.5-11.1); PLATELET COUNT 617 10^3/uL (134-434); RDW 17.6 % (11.9-15.9); WHITE BLOOD COUNT 8.3 K/mm3 (4.0-10.0)
[2023-02-18] MEDS: AMINO ACIDS/PROTEIN HYDROLYS 30 ML LIQUID.PKT PO SCH ×2 (08:05→17:27)
[2023-02-18] MEDS: ASPIRIN 81 MG CHEWABLE TABLETS PO SCH (10:12)
[2023-02-18] MEDS: PANTOPRAZOLE 40 MG TABLET PO SCH (10:12)
[2023-02-18] MEDS: ZINC SULFATE 220 MG CAPSULE (FP) PO SCH (10:12)
[2023-02-18] MEDS: MULTIVITAMINS (DAILY MVI) TABLET (FP) PO SCH (10:12)
[2023-02-18] MEDS: ASCORBIC ACID 500 MG TABLET (FP) PO SCH ×2 (10:12→21:34)
[2023-02-18] MEDS: ERTAPENEM SODIUM 1 GM in SODIUM CHLORIDE 50 ML IVPB SCH (10:12)
[2023-02-18] MEDS: POLYETHYLENE GLYCOL (HEALTHYLAX) 3350 17 GM PACKET PO SCH (10:12)
[2023-02-18] MEDS: MINERAL OIL/PET HY-PHL TOPICAL OINTMENT 454 GM JAR TP SCH (10:45)
[2023-02-18 10:48] LABS: BASO % 0.7 % (0-2.0); EOS % 0.6 % (0-4.5); HEMATOCRIT 31.1 % (35.4-49); HEMOGLOBIN 10.2 GM/dL (11.7-16.9); LYMPH % 18.2 % (8-40); MCH 27.9 pg (25.7-33.7); MCHC 32.8 g/dl (32.0-35.9); MEAN CELL VOLUME 85.1 fl (80-96); MEAN PLT VOLUME 6.5 fl (7.5-11.1); MONO % 8.1 % (3.8-10.2); NEUT % 72.4 % (42.8-82.8); PLATELET COUNT 628 10^3/uL (134-434); RBC 3.65 M/mm3 (4.00-5.60); RDW 17.7 % (11.9-15.9); WHITE BLOOD COUNT 9.7 K/mm3 (4.0-10.0)
[2023-02-18 11:10] LABS: CALCIUM 9.9 mg/dL (8.5-10.1)
[2023-02-18 11:11] LABS: BLOOD UREA NITROGEN 15.1 mg/dL (7-18)
[2023-02-18 11:14] LABS: CREATININE 0.4 mg/dL (0.55-1.3)
[2023-02-18 11:15] LABS: TOT PROT 6.4 g/dl (6.4-8.2)
[2023-02-18 11:16] LABS: BILIRUBIN,TOTAL 0.5 mg/dL (0.2-1)
[2023-02-18 11:25] LABS: ALBUMIN 2.1 g/dl (3.4-5.0)
[2023-02-19] MEDS: MULTIVITAMINS (DAILY MVI) TABLET (FP) PO SCH (09:12)
[2023-02-19] MEDS: PANTOPRAZOLE 40 MG TABLET PO SCH (09:12)
[2023-02-19] MEDS: ERTAPENEM SODIUM 1 GM in SODIUM CHLORIDE 50 ML IVPB SCH (09:12)
[2023-02-19] MEDS: ASPIRIN 81 MG CHEWABLE TABLETS PO SCH (09:12)
[2023-02-19] MEDS: ZINC SULFATE 220 MG CAPSULE (FP) PO SCH (09:12)
[2023-02-19] MEDS: POLYETHYLENE GLYCOL (HEALTHYLAX) 3350 17 GM PACKET PO SCH (09:12)
[2023-02-19] MEDS: ASCORBIC ACID 500 MG TABLET (FP) PO SCH ×2 (09:12→22:14)
[2023-02-19] MEDS: AMINO ACIDS/PROTEIN HYDROLYS 30 ML LIQUID.PKT PO SCH ×2 (09:13→17:07)
[2023-02-19 10:25] LABS: BASO % 0.6 % (0-2.0); EOS % 0.5 % (0-4.5); HEMATOCRIT 31.2 % (35.4-49); HEMOGLOBIN 10.2 GM/dL (11.7-16.9); MCH 27.9 pg (25.7-33.7); MCHC 32.6 g/dl (32.0-35.9); MEAN CELL VOLUME 85.4 fl (80-96); MEAN PLT VOLUME 6.6 fl (7.5-11.1); MONO % 10.2 % (3.8-10.2); NEUT % 68.7 % (42.8-82.8); PLATELET COUNT 623 10^3/uL (134-434); RBC 3.65 M/mm3 (4.00-5.60); RDW 17.9 % (11.9-15.9); WHITE BLOOD COUNT 11.2 K/mm3 (4.0-10.0)
[2023-02-19 10:50] LABS: POTASSIUM 4.4 mmol/L (3.5-5.1)
[2023-02-19 10:57] LABS: ALBUMIN 2.1 g/dl (3.4-5.0); BLOOD UREA NITROGEN 16.7 mg/dL (7-18)
[2023-02-19 11:00] LABS: CREATININE 0.5 mg/dL (0.55-1.3)
[2023-02-19 11:01] LABS: BILIRUBIN,TOTAL 0.7 mg/dL (0.2-1); TOT PROT 6.9 g/dl (6.4-8.2)
[2023-02-19] MEDS: MINERAL OIL/PET HY-PHL TOPICAL OINTMENT 454 GM JAR TP SCH (11:17)
[2023-02-19] MEDS ORDERED: INSULIN ASPART SLIDING SCALE (NOVOLOG) 1 VIAL SQ ONE (11:19)
[2023-02-19] MEDS: LACTOBACILLUS ACIDOPHILUS 1 TABLET PO SCH (11:21)
[2023-02-19] MEDS ORDERED: morphine SULFATE 4 MG/ML VIAL IVPUSH PRN (14:42)
[2023-02-20 09:08] LABS: HEMATOCRIT 31.4 % (35.4-49); HEMOGLOBIN 10.3 GM/dL (11.7-16.9); MCHC 32.8 g/dl (32.0-35.9); MEAN CELL VOLUME 85.3 fl (80-96); MEAN PLT VOLUME 6.6 fl (7.5-11.1); PLATELET COUNT 553 10^3/uL (134-434); RBC 3.68 M/mm3 (4.00-5.60); RDW 17.8 % (11.9-15.9); WHITE BLOOD COUNT 9.5 K/mm3 (4.0-10.0)
[2023-02-20] MEDS: LACTOBACILLUS ACIDOPHILUS 1 TABLET PO SCH (09:22)
[2023-02-20] MEDS: ZINC SULFATE 220 MG CAPSULE (FP) PO SCH (09:22)
[2023-02-20] MEDS: PANTOPRAZOLE 40 MG TABLET PO SCH (09:22)
[2023-02-20] MEDS: ASCORBIC ACID 500 MG TABLET (FP) PO SCH ×2 (09:22→22:43)
[2023-02-20] MEDS: ASPIRIN 81 MG CHEWABLE TABLETS PO SCH (09:22)
[2023-02-20] MEDS: POLYETHYLENE GLYCOL (HEALTHYLAX) 3350 17 GM PACKET PO SCH (09:23)
[2023-02-20] MEDS: AMINO ACIDS/PROTEIN HYDROLYS 30 ML LIQUID.PKT PO SCH ×2 (09:23→17:39)
[2023-02-20] MEDS: ERTAPENEM SODIUM 1 GM in SODIUM CHLORIDE 50 ML IVPB SCH (09:24)
[2023-02-20] MEDS: MINERAL OIL/PET HY-PHL TOPICAL OINTMENT 454 GM JAR TP SCH (09:28)
[2023-02-20] MEDS: MULTIVITAMINS (DAILY MVI) TABLET (FP) PO SCH (09:33)
[2023-02-20 09:41] LABS: CALCIUM 9.6 mg/dL (8.5-10.1)
[2023-02-20 09:42] LABS: BLOOD UREA NITROGEN 19.5 mg/dL (7-18); MAGNESIUM 1.7 mg/dL (1.8-2.4)
[2023-02-20 09:45] LABS: CREATININE 0.5 mg/dL (0.55-1.3); PHOSPHOROUS 3.7 mg/dL (2.5-4.9)
[2023-02-20 09:46] LABS: TOT PROT 6.7 g/dl (6.4-8.2)
[2023-02-20 09:47] LABS: BILIRUBIN,TOTAL 0.6 mg/dL (0.2-1)
[2023-02-20] MEDS ORDERED: MAGNESIUM 2GM/50ML STERILE WATER IVPB IVPB ONE (14:46)
[2023-02-20] MEDS ORDERED: ACETAMINOPHEN INJECTION 100 ML IVPB ONE (15:31)
[2023-02-20] MEDS ORDERED: PROPOFOL 40 ML ONE (15:31)
[2023-02-20] MEDS ORDERED: SUCCINYLCHOLINE CHLORIDE 200 MG/10 ML SYRINGE ONE (15:31)
[2023-02-20] MEDS ORDERED: DEXAMETHASONE SOD PHOSPHATE 4 MG/1 ML VIAL ONE (15:36)
[2023-02-20] MEDS ORDERED: ONDANSETRON 4 MG/2 ML VIAL ONE (15:36)
[2023-02-20] MEDS ORDERED: KETOROLAC TROMETHAMINE 30 MG/1 ML VIAL ONE (15:36)
[2023-02-20] MEDS ORDERED: LIDOCAINE HCL/PF 2% SDV 5ML VIAL ONE (15:36)
[2023-02-20] MEDS ORDERED: MIDAZOLAM HCL 2 MG/2 ML SINGLE DOSE VIAL ONE (15:38)
[2023-02-20] MEDS ORDERED: oxyCODONE HCL 5 MG TABLET PO PRN (18:03)
[2023-02-21 10:57] LABS: HEMATOCRIT 32.7 % (35.4-49); HEMOGLOBIN 10.8 GM/dL (11.7-16.9); MCHC 33.1 g/dl (32.0-35.9); MEAN CELL VOLUME 84.8 fl (80-96); PLATELET COUNT 624 10^3/uL (134-434); RBC 3.85 M/mm3 (4.00-5.60); RDW 17.8 % (11.9-15.9); WHITE BLOOD COUNT 10.8 K/mm3 (4.0-10.0)
[2023-02-21 11:30] LABS: POTASSIUM 4.4 mmol/L (3.5-5.1)
[2023-02-21] MEDS: ASPIRIN 81 MG CHEWABLE TABLETS PO SCH (11:35)
[2023-02-21] MEDS: AMINO ACIDS/PROTEIN HYDROLYS 30 ML LIQUID.PKT PO SCH ×2 (11:35→18:12)
[2023-02-21] MEDS: ZINC SULFATE 220 MG CAPSULE (FP) PO SCH (11:36)
[2023-02-21] MEDS: POLYETHYLENE GLYCOL (HEALTHYLAX) 3350 17 GM PACKET PO SCH (11:36)
[2023-02-21] MEDS: PANTOPRAZOLE 40 MG TABLET PO SCH ×2 (11:36→18:12)
[2023-02-21] MEDS: LACTOBACILLUS ACIDOPHILUS 1 TABLET PO SCH (11:36)
[2023-02-21 11:37] LABS: CALCIUM 9.6 mg/dL (8.5-10.1)
[2023-02-21] MEDS: MULTIVITAMINS (DAILY MVI) TABLET (FP) PO SCH (11:37)
[2023-02-21] MEDS: ASCORBIC ACID 500 MG TABLET (FP) PO SCH ×2 (11:37→21:08)
[2023-02-21 11:38] LABS: ALBUMIN 2.2 g/dl (3.4-5.0); BLOOD UREA NITROGEN 20.9 mg/dL (7-18); MAGNESIUM 2.1 mg/dL (1.8-2.4)
[2023-02-21] MEDS: ERTAPENEM SODIUM 1 GM in SODIUM CHLORIDE 50 ML IVPB SCH (11:40)
[2023-02-21 11:41] LABS: CREATININE 0.5 mg/dL (0.55-1.3); PHOSPHOROUS 4.2 mg/dL (2.5-4.9)
[2023-02-21] MEDS: MINERAL OIL/PET HY-PHL TOPICAL OINTMENT 454 GM JAR TP SCH (11:41)
[2023-02-21 11:42] LABS: BILIRUBIN,TOTAL 0.5 mg/dL (0.2-1); TOT PROT 7.3 g/dl (6.4-8.2)
[2023-02-21] MEDS ORDERED: SUGAMMADEX SODIUM 200 MG/2 ML VIAL ONE (12:21)
[2023-02-21] MEDS: metoPROLOL SUCCINATE 25 MG TAB.SR.24H (FP) PO SCH (18:12)
[2023-02-21] MEDS: APIXABAN 5 MG TABLET PO SCH (21:08)
[2023-02-21] MEDS: GABAPENTIN 300 MG CAPSULE PO SCH (21:08)
[2023-02-21] MEDS: ROSUVASTATIN CA 20 MG TABLET PO SCH (21:08)
[2023-02-21] MEDS: MELATONIN 5 MG TABLETS PO PRN (21:09)
[2023-02-21] MEDS: QUEtiapine FUMARATE 100 MG TABLET (FP) PO SCH (21:09)
[2023-02-22] MEDS: GABAPENTIN 300 MG CAPSULE PO SCH ×3 (05:35→21:12)
[2023-02-22] MEDS: AMINO ACIDS/PROTEIN HYDROLYS 30 ML LIQUID.PKT PO SCH ×2 (08:35→17:31)
[2023-02-22] MEDS: LOSARTAN 50MG/HCTZ 12.5MG 1 TAB PO SCH (09:20)
[2023-02-22] MEDS: ZINC SULFATE 220 MG CAPSULE (FP) PO SCH (09:20)
[2023-02-22] MEDS: ASCORBIC ACID 500 MG TABLET (FP) PO SCH ×2 (09:20→21:12)
[2023-02-22] MEDS: metoPROLOL SUCCINATE 25 MG TAB.SR.24H (FP) PO SCH (09:20)
[2023-02-22] MEDS: POLYETHYLENE GLYCOL (HEALTHYLAX) 3350 17 GM PACKET PO SCH (09:20)
[2023-02-22] MEDS: PANTOPRAZOLE 40 MG TABLET PO SCH (09:20)
[2023-02-22] MEDS: LACTOBACILLUS ACIDOPHILUS 1 TABLET PO SCH (09:20)
[2023-02-22] MEDS: ASPIRIN 81 MG CHEWABLE TABLETS PO SCH (09:20)
[2023-02-22] MEDS: ERTAPENEM SODIUM 1 GM in SODIUM CHLORIDE 50 ML IVPB SCH (09:20)
[2023-02-22] MEDS: APIXABAN 5 MG TABLET PO SCH ×2 (09:20→21:12)
[2023-02-22] MEDS: MULTIVITAMINS (DAILY MVI) TABLET (FP) PO SCH (09:21)
[2023-02-22] MEDS: MINERAL OIL/PET HY-PHL TOPICAL OINTMENT 454 GM JAR TP SCH (09:21)
[2023-02-22 10:02] LABS: HEMATOCRIT 29.3 % (35.4-49); HEMOGLOBIN 9.7 GM/dL (11.7-16.9); MCH 27.8 pg (25.7-33.7); MCHC 33.1 g/dl (32.0-35.9); MEAN CELL VOLUME 84.2 fl (80-96); MEAN PLT VOLUME 6.7 fl (7.5-11.1); PLATELET COUNT 499 10^3/uL (134-434); RBC 3.48 M/mm3 (4.00-5.60); RDW 17.6 % (11.9-15.9); WHITE BLOOD COUNT 7.6 K/mm3 (4.0-10.0)
[2023-02-22 10:29] LABS: POTASSIUM 4.4 mmol/L (3.5-5.1)
[2023-02-22 10:40] LABS: CREATININE 0.5 mg/dL (0.55-1.3)
[2023-02-22 10:41] LABS: BILIRUBIN,TOTAL 0.4 mg/dL (0.2-1); TOT PROT 6.7 g/dl (6.4-8.2)
[2023-02-22 10:42] LABS: PHOSPHOROUS 4.4 mg/dL (2.5-4.9)
[2023-02-22 10:43] LABS: CALCIUM 9.4 mg/dL (8.5-10.1); MAGNESIUM 1.7 mg/dL (1.8-2.4)
[2023-02-22 11:52] LABS: ERYTHROCYTE SEDIMENTATION RATE 99 mm/hr (0-20)
[2023-02-22] MEDS: ROSUVASTATIN CA 20 MG TABLET PO SCH (21:12)
[2023-02-22] MEDS: MELATONIN 5 MG TABLETS PO PRN (21:12)
[2023-02-22] MEDS: QUEtiapine FUMARATE 100 MG TABLET (FP) PO SCH (21:12)
[2023-02-22] MEDS: MAGNESIUM OXIDE 400 MG TABLET (FP) PO SCH (21:12)
[2023-02-23] MEDS: GABAPENTIN 300 MG CAPSULE PO SCH ×3 (05:37→21:36)
[2023-02-23] MEDS: MAGNESIUM OXIDE 400 MG TABLET (FP) PO SCH ×2 (09:20→21:36)
[2023-02-23] MEDS: ZINC SULFATE 220 MG CAPSULE (FP) PO SCH (09:20)
[2023-02-23] MEDS: LACTOBACILLUS ACIDOPHILUS 1 TABLET PO SCH (09:20)
[2023-02-23] MEDS: ASCORBIC ACID 500 MG TABLET (FP) PO SCH ×2 (09:20→21:36)
[2023-02-23] MEDS: APIXABAN 5 MG TABLET PO SCH ×2 (09:21→21:36)
[2023-02-23] MEDS: AMINO ACIDS/PROTEIN HYDROLYS 30 ML LIQUID.PKT PO SCH ×2 (09:21→16:38)
[2023-02-23] MEDS: ASPIRIN 81 MG CHEWABLE TABLETS PO SCH (09:21)
[2023-02-23] MEDS: POLYETHYLENE GLYCOL (HEALTHYLAX) 3350 17 GM PACKET PO SCH (09:21)
[2023-02-23] MEDS: metoPROLOL SUCCINATE 25 MG TAB.SR.24H (FP) PO SCH (09:21)
[2023-02-23] MEDS: LOSARTAN 50MG/HCTZ 12.5MG 1 TAB PO SCH (09:21)
[2023-02-23] MEDS: MULTIVITAMINS (DAILY MVI) TABLET (FP) PO SCH (09:22)
[2023-02-23] MEDS: MINERAL OIL/PET HY-PHL TOPICAL OINTMENT 454 GM JAR TP SCH (09:22)
[2023-02-23] MEDS: PANTOPRAZOLE 40 MG TABLET PO SCH (09:23)
[2023-02-23] MEDS: ERTAPENEM SODIUM 1 GM in SODIUM CHLORIDE 50 ML IVPB SCH (09:25)
[2023-02-23 11:51] LABS: HEMATOCRIT 29.5 % (35.4-49); HEMOGLOBIN 9.8 GM/dL (11.7-16.9); MCHC 33.2 g/dl (32.0-35.9); MEAN CELL VOLUME 84.3 fl (80-96); PLATELET COUNT 572 10^3/uL (134-434); RBC 3.49 M/mm3 (4.00-5.60); RDW 17.7 % (11.9-15.9); WHITE BLOOD COUNT 9.2 K/mm3 (4.0-10.0)
[2023-02-23 12:09] LABS: POTASSIUM 4.2 mmol/L (3.5-5.1)
[2023-02-23 12:12] LABS: BLOOD UREA NITROGEN 24.5 mg/dL (7-18)
[2023-02-23 12:13] LABS: ALBUMIN 2.2 g/dl (3.4-5.0); MAGNESIUM 2.1 mg/dL (1.8-2.4)
[2023-02-23 12:15] LABS: CREATININE 0.5 mg/dL (0.55-1.3)
[2023-02-23 12:16] LABS: BILIRUBIN,TOTAL 0.4 mg/dL (0.2-1); PHOSPHOROUS 4.5 mg/dL (2.5-4.9); TOT PROT 6.8 g/dl (6.4-8.2)
[2023-02-23] MEDS: ROSUVASTATIN CA 20 MG TABLET PO SCH (21:36)
[2023-02-23] MEDS: QUEtiapine FUMARATE 100 MG TABLET (FP) PO SCH (21:36)
[2023-02-24] MEDS: GABAPENTIN 300 MG CAPSULE PO SCH ×3 (05:35→21:48)
[2023-02-24] MEDS: AMINO ACIDS/PROTEIN HYDROLYS 30 ML LIQUID.PKT PO SCH ×2 (09:08→16:58)
[2023-02-24] MEDS: LACTOBACILLUS ACIDOPHILUS 1 TABLET PO SCH (09:11)
[2023-02-24] MEDS: MULTIVITAMINS (DAILY MVI) TABLET (FP) PO SCH (09:11)
[2023-02-24] MEDS: MAGNESIUM OXIDE 400 MG TABLET (FP) PO SCH ×2 (09:11→21:49)
[2023-02-24] MEDS: metoPROLOL SUCCINATE 25 MG TAB.SR.24H (FP) PO SCH (09:12)
[2023-02-24] MEDS: ZINC SULFATE 220 MG CAPSULE (FP) PO SCH (09:12)
[2023-02-24] MEDS: ERTAPENEM SODIUM 1 GM in SODIUM CHLORIDE 50 ML IVPB SCH (09:12)
[2023-02-24] MEDS: ASCORBIC ACID 500 MG TABLET (FP) PO SCH ×2 (09:12→21:49)
[2023-02-24] MEDS: PANTOPRAZOLE 40 MG TABLET PO SCH (09:12)
[2023-02-24] MEDS: POLYETHYLENE GLYCOL (HEALTHYLAX) 3350 17 GM PACKET PO SCH (09:12)
[2023-02-24] MEDS: LOSARTAN 50MG/HCTZ 12.5MG 1 TAB PO SCH (09:12)
[2023-02-24] MEDS: APIXABAN 5 MG TABLET PO SCH ×2 (09:12→21:49)
[2023-02-24] MEDS: ASPIRIN 81 MG CHEWABLE TABLETS PO SCH (09:12)
[2023-02-24] MEDS: MINERAL OIL/PET HY-PHL TOPICAL OINTMENT 454 GM JAR TP SCH (09:13)
[2023-02-24] MEDS ORDERED: oxyCODONE HCL 5 MG TABLET PO PRN (12:46)
[2023-02-24] MEDS: MELATONIN 5 MG TABLETS PO PRN (21:49)
[2023-02-24] MEDS: QUEtiapine FUMARATE 100 MG TABLET (FP) PO SCH (21:49)
[2023-02-24] MEDS: ROSUVASTATIN CA 20 MG TABLET PO SCH (21:49)
[2023-02-25] MEDS: GABAPENTIN 300 MG CAPSULE PO SCH ×3 (06:19→21:33)
[2023-02-25] MEDS: AMINO ACIDS/PROTEIN HYDROLYS 30 ML LIQUID.PKT PO SCH ×2 (08:30→16:49)
[2023-02-25 09:29] LABS: POTASSIUM 4.2 mmol/L (3.5-5.1)
[2023-02-25 09:31] LABS: CALCIUM 10.4 mg/dL (8.5-10.1)
[2023-02-25 09:34] LABS: CREATININE 0.4 mg/dL (0.55-1.3)
[2023-02-25] MEDS: ZINC SULFATE 220 MG CAPSULE (FP) PO SCH (10:52)
[2023-02-25] MEDS: MULTIVITAMINS (DAILY MVI) TABLET (FP) PO SCH (10:52)
[2023-02-25] MEDS: MAGNESIUM OXIDE 400 MG TABLET (FP) PO SCH ×2 (10:52→21:33)
[2023-02-25] MEDS: ASCORBIC ACID 500 MG TABLET (FP) PO SCH ×2 (10:52→21:33)
[2023-02-25] MEDS: PANTOPRAZOLE 40 MG TABLET PO SCH (10:52)
[2023-02-25] MEDS: metoPROLOL SUCCINATE 25 MG TAB.SR.24H (FP) PO SCH (10:52)
[2023-02-25] MEDS: LACTOBACILLUS ACIDOPHILUS 1 TABLET PO SCH (10:52)
[2023-02-25] MEDS: POLYETHYLENE GLYCOL (HEALTHYLAX) 3350 17 GM PACKET PO SCH (10:52)
[2023-02-25] MEDS: ERTAPENEM SODIUM 1 GM in SODIUM CHLORIDE 50 ML IVPB SCH (10:52)
[2023-02-25] MEDS: ASPIRIN 81 MG CHEWABLE TABLETS PO SCH (10:52)
[2023-02-25] MEDS: MINERAL OIL/PET HY-PHL TOPICAL OINTMENT 454 GM JAR TP SCH (11:00)
[2023-02-25] MEDS ORDERED: SODIUM CHLORIDE 500 ML IV STA (16:22)
[2023-02-25] MEDS: QUEtiapine FUMARATE 100 MG TABLET (FP) PO SCH (21:33)
[2023-02-25] MEDS: MELATONIN 5 MG TABLETS PO PRN (21:33)
[2023-02-25] MEDS: DOCUSATE SODIUM 100 MG CAPSULE (FP) PO SCH (21:33)
[2023-02-25] MEDS: ROSUVASTATIN CA 20 MG TABLET PO SCH (21:33)
[2023-02-26] MEDS: GABAPENTIN 300 MG CAPSULE PO SCH ×3 (05:31→21:47)
[2023-02-26] MEDS: ERTAPENEM SODIUM 1 GM in SODIUM CHLORIDE 50 ML IVPB SCH (10:21)
[2023-02-26] MEDS: MAGNESIUM OXIDE 400 MG TABLET (FP) PO SCH ×2 (10:22→21:47)
[2023-02-26] MEDS: LACTOBACILLUS ACIDOPHILUS 1 TABLET PO SCH (10:22)
[2023-02-26] MEDS: ASPIRIN 81 MG CHEWABLE TABLETS PO SCH (10:22)
[2023-02-26] MEDS: ASCORBIC ACID 500 MG TABLET (FP) PO SCH ×2 (10:22→21:47)
[2023-02-26] MEDS: POLYETHYLENE GLYCOL (HEALTHYLAX) 3350 17 GM PACKET PO SCH (10:22)
[2023-02-26] MEDS: ZINC SULFATE 220 MG CAPSULE (FP) PO SCH (10:22)
[2023-02-26] MEDS: metoPROLOL SUCCINATE 25 MG TAB.SR.24H (FP) PO SCH (10:22)
[2023-02-26] MEDS: DOCUSATE SODIUM 100 MG CAPSULE (FP) PO SCH ×2 (10:22→21:47)
[2023-02-26] MEDS: PANTOPRAZOLE 40 MG TABLET PO SCH (10:22)
[2023-02-26] MEDS: MULTIVITAMINS (DAILY MVI) TABLET (FP) PO SCH (10:22)
[2023-02-26] MEDS: AMINO ACIDS/PROTEIN HYDROLYS 30 ML LIQUID.PKT PO SCH ×2 (10:23→17:42)
[2023-02-26] MEDS: MINERAL OIL/PET HY-PHL TOPICAL OINTMENT 454 GM JAR TP SCH (10:24)
[2023-02-26] MEDS ORDERED: LACTATED RINGERS SOLUTION 1,000 ML/1,000 ML INFUS.BAG IV STA (13:40)
[2023-02-26 16:46] LABS: BASO % 0.3 % (0-2.0); EOS % 0.3 % (0-4.5); HEMATOCRIT 31.1 % (35.4-49); HEMOGLOBIN 10.1 GM/dL (11.7-16.9); LYMPH % 12.4 % (8-40); MCH 27.2 pg (25.7-33.7); MCHC 32.3 g/dl (32.0-35.9); MEAN CELL VOLUME 84.2 fl (80-96); MEAN PLT VOLUME 6.9 fl (7.5-11.1); MONO % 7.9 % (3.8-10.2); NEUT % 79.1 % (42.8-82.8); PLATELET COUNT 545 10^3/uL (134-434); RDW 17.5 % (11.9-15.9); WHITE BLOOD COUNT 9.7 K/mm3 (4.0-10.0)
[2023-02-26 17:05] LABS: EPI CELLS 1 /uL (0-25.1); HYALINE CASTS 8 /uL (0-3.1); PH,URINE 5.5 (5.0-8.0); URINE APPEARANCE CLOUDY; URINE BACTERIA 33 /uL (0-1359); URINE BILIRUBIN NEGATIVE (NEGATIVE); URINE COLOR YELLOW; URINE GLUCOSE (UA) NEGATIVE (NEGATIVE); URINE KETONE NEGATIVE (NEGATIVE); URINE LEUK ESTERASE 1+ (NEGATIVE); URINE NITRITE NEGATIVE (NEGATIVE); URINE PROTEIN 1+ (NEGATIVE); URINE UROBILINOGEN 0.2 mg/dL (0.2-1.0); URINE WBC 675 /uL (0-25.8)
[2023-02-26 17:33] LABS: ERYTHROCYTE SEDIMENTATION RATE 100 mm/hr (0-20)
[2023-02-26 18:28] LABS: URINE RBC 78.4 /uL (0-23.9)
[2023-02-26 18:29] LABS: URINE CRYSTALS SEEN /hpf
[2023-02-26] MEDS: QUEtiapine FUMARATE 100 MG TABLET (FP) PO SCH (21:47)
[2023-02-26] MEDS: ROSUVASTATIN CA 20 MG TABLET PO SCH (21:47)
[2023-02-27] MEDS: GABAPENTIN 300 MG CAPSULE PO SCH ×4 (06:33→21:09)
[2023-02-27] MEDS: AMINO ACIDS/PROTEIN HYDROLYS 30 ML LIQUID.PKT PO SCH ×2 (08:45→17:06)
[2023-02-27] MEDS: ERTAPENEM SODIUM 1 GM in SODIUM CHLORIDE 50 ML IVPB SCH (09:52)
[2023-02-27] MEDS: PANTOPRAZOLE 40 MG TABLET PO SCH (09:53)
[2023-02-27] MEDS: MAGNESIUM OXIDE 400 MG TABLET (FP) PO SCH ×2 (09:53→21:08)
[2023-02-27] MEDS: MULTIVITAMINS (DAILY MVI) TABLET (FP) PO SCH (09:53)
[2023-02-27] MEDS: DOCUSATE SODIUM 100 MG CAPSULE (FP) PO SCH ×2 (09:53→21:09)
[2023-02-27] MEDS: POLYETHYLENE GLYCOL (HEALTHYLAX) 3350 17 GM PACKET PO SCH (09:53)
[2023-02-27] MEDS: ZINC SULFATE 220 MG CAPSULE (FP) PO SCH (09:53)
[2023-02-27] MEDS: LACTOBACILLUS ACIDOPHILUS 1 TABLET PO SCH (09:53)
[2023-02-27] MEDS: ASPIRIN 81 MG CHEWABLE TABLETS PO SCH (09:53)
[2023-02-27] MEDS: metoPROLOL SUCCINATE 25 MG TAB.SR.24H (FP) PO SCH (09:54)
[2023-02-27] MEDS: ASCORBIC ACID 500 MG TABLET (FP) PO SCH ×2 (09:54→21:08)
[2023-02-27] MEDS: MINERAL OIL/PET HY-PHL TOPICAL OINTMENT 454 GM JAR TP SCH (09:54)
[2023-02-27 10:42] LABS: HEMATOCRIT 30.3 % (35.4-49); HEMOGLOBIN 9.7 GM/dL (11.7-16.9); MCH 26.9 pg (25.7-33.7); WHITE BLOOD COUNT 7.1 K/mm3 (4.0-10.0)
[2023-02-27 10:43] LABS: MEAN PLT VOLUME 6.9 fl (7.5-11.1); PLATELET COUNT 500 10^3/uL (134-434); RDW 17.4 % (11.9-15.9)
[2023-02-27 11:22] LABS: BLOOD UREA NITROGEN 18.4 mg/dL (7-18); CREATININE 0.4 mg/dL (0.55-1.3); PHOSPHOROUS 3.4 mg/dL (2.5-4.9); POTASSIUM 4.2 mmol/L (3.5-5.1)
[2023-02-27] MEDS: ACETAMINOPHEN 500 MG TABLET (FP) PO PRN (21:07)
[2023-02-27] MEDS: MELATONIN 5 MG TABLETS PO PRN (21:08)
[2023-02-27] MEDS: ROSUVASTATIN CA 20 MG TABLET PO SCH (21:08)
[2023-02-27] MEDS: QUEtiapine FUMARATE 100 MG TABLET (FP) PO SCH (21:09)
[2023-02-28] MEDS: GABAPENTIN 300 MG CAPSULE PO SCH ×3 (06:05→21:54)
[2023-02-28] MEDS: AMINO ACIDS/PROTEIN HYDROLYS 30 ML LIQUID.PKT PO SCH ×2 (08:41→18:08)
[2023-02-28] MEDS: POLYETHYLENE GLYCOL (HEALTHYLAX) 3350 17 GM PACKET PO SCH (09:21)
[2023-02-28] MEDS: LACTOBACILLUS ACIDOPHILUS 1 TABLET PO SCH (09:22)
[2023-02-28] MEDS: MINERAL OIL/PET HY-PHL TOPICAL OINTMENT 454 GM JAR TP SCH (09:22)
[2023-02-28] MEDS: ASPIRIN 81 MG CHEWABLE TABLETS PO SCH (09:22)
[2023-02-28] MEDS: ZINC SULFATE 220 MG CAPSULE (FP) PO SCH (09:22)
[2023-02-28] MEDS: MAGNESIUM OXIDE 400 MG TABLET (FP) PO SCH ×2 (09:22→21:54)
[2023-02-28] MEDS: PANTOPRAZOLE 40 MG TABLET PO SCH (09:22)
[2023-02-28] MEDS: DOCUSATE SODIUM 100 MG CAPSULE (FP) PO SCH ×2 (09:22→21:55)
[2023-02-28] MEDS: metoPROLOL SUCCINATE 25 MG TAB.SR.24H (FP) PO SCH (09:22)
[2023-02-28] MEDS: ASCORBIC ACID 500 MG TABLET (FP) PO SCH ×2 (09:22→21:55)
[2023-02-28] MEDS: MULTIVITAMINS (DAILY MVI) TABLET (FP) PO SCH (09:22)
[2023-02-28] MEDS: ERTAPENEM SODIUM 1 GM in SODIUM CHLORIDE 50 ML IVPB SCH (09:23)
[2023-02-28 10:34] LABS: HEMATOCRIT 28.9 % (35.4-49); HEMOGLOBIN 9.6 GM/dL (11.7-16.9); MCH 27.8 pg (25.7-33.7); MCHC 33.1 g/dl (32.0-35.9); MEAN CELL VOLUME 83.9 fl (80-96); MEAN PLT VOLUME 6.9 fl (7.5-11.1); PLATELET COUNT 513 10^3/uL (134-434); RBC 3.44 M/mm3 (4.00-5.60); RDW 17.4 % (11.9-15.9); WHITE BLOOD COUNT 6.6 K/mm3 (4.0-10.0)
[2023-02-28 10:40] LABS: ALBUMIN 2.1 g/dl (3.4-5.0); BLOOD UREA NITROGEN 18.1 mg/dL (7-18)
[2023-02-28 10:41] LABS: CREATININE 0.4 mg/dL (0.55-1.3)
[2023-02-28 10:42] LABS: TOT PROT 6.7 g/dl (6.4-8.2)
[2023-02-28 10:44] LABS: BILIRUBIN,TOTAL 0.4 mg/dL (0.2-1)
[2023-02-28] MEDS ORDERED: PROPOFOL 40 ML ONE (10:53)
[2023-02-28] MEDS ORDERED: ROCURONIUM BROMIDE 50 MG/5 ML SYRINGE ONE (10:54)
[2023-02-28] MEDS ORDERED: SUCCINYLCHOLINE CHLORIDE 200 MG/10 ML SYRINGE ONE (11:19)
[2023-02-28] MEDS ORDERED: IOHEXOL 300 MG/ML INFUS..BTL IV ONE (11:24)
[2023-02-28] MEDS ORDERED: morphine SULFATE 4 MG/ML VIAL ONE (12:24)
[2023-02-28] MEDS ORDERED: morphine SULFATE 4 MG/ML VIAL IVPUSH ONE (12:26)
[2023-02-28] MEDS ORDERED: METOCLOPRAMIDE HCL 10 MG TABLET (FP) PO PRN (12:29)
[2023-02-28] MEDS: QUEtiapine FUMARATE 100 MG TABLET (FP) PO SCH (21:54)
[2023-02-28] MEDS: ROSUVASTATIN CA 20 MG TABLET PO SCH (21:54)
[2023-03-01] MEDS: GABAPENTIN 300 MG CAPSULE PO SCH ×4 (06:10→22:19)
[2023-03-01] MEDS: AMINO ACIDS/PROTEIN HYDROLYS 30 ML LIQUID.PKT PO SCH ×2 (08:45→17:00)
[2023-03-01] MEDS: MULTIVITAMINS (DAILY MVI) TABLET (FP) PO SCH (09:23)
[2023-03-01] MEDS: LACTOBACILLUS ACIDOPHILUS 1 TABLET PO SCH (09:23)
[2023-03-01] MEDS: ASPIRIN 81 MG CHEWABLE TABLETS PO SCH (09:23)
[2023-03-01] MEDS: DOCUSATE SODIUM 100 MG CAPSULE (FP) PO SCH ×2 (09:24→22:20)
[2023-03-01] MEDS: MAGNESIUM OXIDE 400 MG TABLET (FP) PO SCH ×2 (09:24→22:20)
[2023-03-01] MEDS: metoPROLOL SUCCINATE 25 MG TAB.SR.24H (FP) PO SCH (09:24)
[2023-03-01] MEDS: ASCORBIC ACID 500 MG TABLET (FP) PO SCH ×2 (09:24→22:20)
[2023-03-01] MEDS: ZINC SULFATE 220 MG CAPSULE (FP) PO SCH (09:24)
[2023-03-01] MEDS: PANTOPRAZOLE 40 MG TABLET PO SCH (09:24)
[2023-03-01] MEDS: APIXABAN 5 MG TABLET PO SCH ×2 (09:24→22:21)
[2023-03-01] MEDS: POLYETHYLENE GLYCOL (HEALTHYLAX) 3350 17 GM PACKET PO SCH (09:24)
[2023-03-01] MEDS: ERTAPENEM SODIUM 1 GM in SODIUM CHLORIDE 50 ML IVPB SCH (09:25)
[2023-03-01 10:52] LABS: BASO % 0.6 % (0-2.0); EOS % 3.4 % (0-4.5); HEMATOCRIT 27.9 % (35.4-49); HEMOGLOBIN 9.1 GM/dL (11.7-16.9); LYMPH % 25.8 % (8-40); MCH 27.5 pg (25.7-33.7); MCHC 32.7 g/dl (32.0-35.9); MEAN CELL VOLUME 84.2 fl (80-96); MEAN PLT VOLUME 6.7 fl (7.5-11.1); MONO % 10.2 % (3.8-10.2); PLATELET COUNT 517 10^3/uL (134-434); RBC 3.31 M/mm3 (4.00-5.60); RDW 17.3 % (11.9-15.9); WHITE BLOOD COUNT 6.8 K/mm3 (4.0-10.0)
[2023-03-01] MEDS: MINERAL OIL/PET HY-PHL TOPICAL OINTMENT 454 GM JAR TP SCH (10:53)
[2023-03-01 11:08] LABS: POTASSIUM 3.8 mmol/L (3.5-5.1)
[2023-03-01 11:13] LABS: BLOOD UREA NITROGEN 14.5 mg/dL (7-18); CALCIUM 9.4 mg/dL (8.5-10.1)
[2023-03-01 11:15] LABS: ALBUMIN 1.9 g/dl (3.4-5.0)
[2023-03-01 11:17] LABS: CREATININE 0.6 mg/dL (0.55-1.3)
[2023-03-01 11:18] LABS: BILIRUBIN,TOTAL 0.4 mg/dL (0.2-1); TOT PROT 6.5 g/dl (6.4-8.2)
[2023-03-01] MEDS: QUEtiapine FUMARATE 100 MG TABLET (FP) PO SCH (22:19)
[2023-03-01] MEDS: ROSUVASTATIN CA 20 MG TABLET PO SCH (22:20)
[2023-03-01] MEDS: ACETAMINOPHEN 500 MG TABLET (FP) PO PRN (22:22)
[2023-03-02] MEDS: GABAPENTIN 300 MG CAPSULE PO SCH ×3 (06:05→21:27)
[2023-03-02] MEDS: ACETAMINOPHEN 500 MG TABLET (FP) PO PRN ×3 (09:12→23:16)
[2023-03-02] MEDS: AMINO ACIDS/PROTEIN HYDROLYS 30 ML LIQUID.PKT PO SCH ×2 (09:17→17:15)
[2023-03-02] MEDS: POLYETHYLENE GLYCOL (HEALTHYLAX) 3350 17 GM PACKET PO SCH (09:17)
[2023-03-02] MEDS: APIXABAN 5 MG TABLET PO SCH ×2 (09:17→23:19)
[2023-03-02] MEDS: LACTOBACILLUS ACIDOPHILUS 1 TABLET PO SCH (09:17)
[2023-03-02] MEDS: MINERAL OIL/PET HY-PHL TOPICAL OINTMENT 454 GM JAR TP SCH (09:18)
[2023-03-02] MEDS: ZINC SULFATE 220 MG CAPSULE (FP) PO SCH (09:18)
[2023-03-02] MEDS: MULTIVITAMINS (DAILY MVI) TABLET (FP) PO SCH (09:18)
[2023-03-02] MEDS: DOCUSATE SODIUM 100 MG CAPSULE (FP) PO SCH ×2 (09:18→21:28)
[2023-03-02] MEDS: MAGNESIUM OXIDE 400 MG TABLET (FP) PO SCH ×2 (09:18→21:28)
[2023-03-02] MEDS: ASCORBIC ACID 500 MG TABLET (FP) PO SCH ×2 (09:18→21:28)
[2023-03-02] MEDS: metoPROLOL SUCCINATE 25 MG TAB.SR.24H (FP) PO SCH (09:18)
[2023-03-02] MEDS: PANTOPRAZOLE 40 MG TABLET PO SCH (09:18)
[2023-03-02] MEDS: ASPIRIN 81 MG CHEWABLE TABLETS PO SCH (09:18)
[2023-03-02] MEDS: ERTAPENEM SODIUM 1 GM in SODIUM CHLORIDE 50 ML IVPB SCH (09:29)
[2023-03-02 15:41] LABS: URINE BILIRUBIN SMALL (NEGATIVE); URINE COLOR RED; URINE GLUCOSE (UA) NEGATIVE (NEGATIVE); URINE KETONE NEGATIVE (NEGATIVE)
[2023-03-02 15:43] LABS: EPI CELLS 18.8 /uL (0-25.1); URINE LEUK ESTERASE 4+ (NEGATIVE); URINE NITRITE POSITIVE (NEGATIVE); URINE PROTEIN 3+ (NEGATIVE); URINE RBC 13085.6 /uL (0-23.9); URINE UROBILINOGEN 0.2 mg/dL (0.2-1.0); URINE WBC 28378.4 /uL (0-25.8)
[2023-03-02 15:44] LABS: HYALINE CASTS 845.16 /uL (0-3.1); URINE APPEARANCE TURBID; URINE BACTERIA 3.8 /uL (0-1359)
[2023-03-02 15:50] LABS: YEAST NONE SEEN (NEGATIVE)
[2023-03-02] MEDS ORDERED: VANCOMYCIN 1,000 MG in DEXTROSE 5%-WATER - 250 ML IVPB SCH (16:00)
[2023-03-02] MEDS: VANCOMYCIN/WATER FOR INJ (PEG) 1,000 MG/200 ML BAG IVPB SCH (17:15)
[2023-03-02] MEDS ORDERED: PIPERACILLIN/TAZOB 3.375 GM 3.375 GM in DEXTROSE 5%-WATER - 50 ML IVPB SCH (18:00)
[2023-03-02] MEDS: PIPERACILLIN/TAZOB 3.375 GM 3.375 GM in DEXTROSE 5%-WATER - 50 ML IVPB SCH (18:42)
[2023-03-02] MEDS: QUEtiapine FUMARATE 100 MG TABLET (FP) PO SCH (21:28)
[2023-03-02] MEDS: ROSUVASTATIN CA 20 MG TABLET PO SCH (21:28)
[2023-03-03] MEDS: PIPERACILLIN/TAZOB 3.375 GM 3.375 GM in DEXTROSE 5%-WATER - 50 ML IVPB SCH ×2 (02:07→09:57)
[2023-03-03] MEDS: GABAPENTIN 300 MG CAPSULE PO SCH ×3 (06:10→21:36)
[2023-03-03 09:10] LABS: BASO % 0.5 % (0-2.0); EOS % 1.1 % (0-4.5); HEMATOCRIT 32.3 % (35.4-49); HEMOGLOBIN 10.5 GM/dL (11.7-16.9); LYMPH % 23.2 % (8-40); MCH 27.4 pg (25.7-33.7); MCHC 32.5 g/dl (32.0-35.9); MEAN CELL VOLUME 84.5 fl (80-96); MEAN PLT VOLUME 6.7 fl (7.5-11.1); MONO % 5.3 % (3.8-10.2); NEUT % 69.9 % (42.8-82.8); PLATELET COUNT 536 10^3/uL (134-434); RBC 3.83 M/mm3 (4.00-5.60); RDW 17.6 % (11.9-15.9); WHITE BLOOD COUNT 9.8 K/mm3 (4.0-10.0)
[2023-03-03] MEDS: AMINO ACIDS/PROTEIN HYDROLYS 30 ML LIQUID.PKT PO SCH ×2 (09:15→16:56)
[2023-03-03 09:35] LABS: POTASSIUM 3.5 mmol/L (3.5-5.1)
[2023-03-03] MEDS: POLYETHYLENE GLYCOL (HEALTHYLAX) 3350 17 GM PACKET PO SCH (09:57)
[2023-03-03] MEDS: MULTIVITAMINS (DAILY MVI) TABLET (FP) PO SCH (09:57)
[2023-03-03] MEDS: MAGNESIUM OXIDE 400 MG TABLET (FP) PO SCH ×2 (09:57→21:36)
[2023-03-03] MEDS: APIXABAN 5 MG TABLET PO SCH ×2 (09:58→21:36)
[2023-03-03] MEDS: DOCUSATE SODIUM 100 MG CAPSULE (FP) PO SCH ×2 (09:58→21:36)
[2023-03-03] MEDS: ZINC SULFATE 220 MG CAPSULE (FP) PO SCH (09:59)
[2023-03-03] MEDS: LACTOBACILLUS ACIDOPHILUS 1 TABLET PO SCH (09:59)
[2023-03-03] MEDS: PANTOPRAZOLE 40 MG TABLET PO SCH (09:59)
[2023-03-03] MEDS: metoPROLOL SUCCINATE 25 MG TAB.SR.24H (FP) PO SCH (09:59)
[2023-03-03] MEDS: ASCORBIC ACID 500 MG TABLET (FP) PO SCH ×2 (09:59→21:36)
[2023-03-03] MEDS: ASPIRIN 81 MG CHEWABLE TABLETS PO SCH (09:59)
[2023-03-03 10:01] LABS: ALBUMIN 2.2 g/dl (3.4-5.0); BLOOD UREA NITROGEN 13.8 mg/dL (7-18); MAGNESIUM 2.4 mg/dL (1.8-2.4)
[2023-03-03 10:02] LABS: CALCIUM 9.7 mg/dL (8.5-10.1)
[2023-03-03 10:04] LABS: CREATININE 0.6 mg/dL (0.55-1.3); PHOSPHOROUS 4.1 mg/dL (2.5-4.9)
[2023-03-03] MEDS: MINERAL OIL/PET HY-PHL TOPICAL OINTMENT 454 GM JAR TP SCH (10:04)
[2023-03-03 10:05] LABS: TOT PROT 7.2 g/dl (6.4-8.2)
[2023-03-03 10:08] LABS: BILIRUBIN,TOTAL 0.4 mg/dL (0.2-1)
[2023-03-03] MEDS: ACETAMINOPHEN 500 MG TABLET (FP) PO PRN (13:13)
[2023-03-03] MEDS: morphine SULFATE 4 MG/ML VIAL IVPUSH PRN ×2 (16:55→21:59)
[2023-03-03] MEDS: VANCOMYCIN/WATER FOR INJ (PEG) 1,000 MG/200 ML BAG IVPB SCH (16:56)
[2023-03-03] MEDS ORDERED: ACETAMINOPHEN 1000 MG/100 ML BAG IVPB ONE (19:00)
[2023-03-03] MEDS: ROSUVASTATIN CA 20 MG TABLET PO SCH (21:36)
[2023-03-03] MEDS: MELATONIN 5 MG TABLETS PO PRN (21:36)
[2023-03-03] MEDS: QUEtiapine FUMARATE 100 MG TABLET (FP) PO SCH (21:36)
[2023-03-04] MEDS ORDERED: ACETAMINOPHEN 1000 MG/100 ML BAG IVPB PRN (06:01)
[2023-03-04] MEDS: GABAPENTIN 300 MG CAPSULE PO SCH ×3 (06:18→21:17)
[2023-03-04] MEDS: AMINO ACIDS/PROTEIN HYDROLYS 30 ML LIQUID.PKT PO SCH ×2 (08:43→18:22)
[2023-03-04 09:31] LABS: EPI CELLS >36 /uL (0-25.1); HYALINE CASTS 3 /uL (0-3.1); URINE APPEARANCE TURBID; URINE BACTERIA 2 /uL (0-1359); URINE BILIRUBIN 1+ (NEGATIVE); URINE COLOR RED; URINE GLUCOSE (UA) NEGATIVE (NEGATIVE); URINE KETONE NEGATIVE (NEGATIVE); URINE LEUK ESTERASE 2+ (NEGATIVE); URINE NITRITE NEGATIVE (NEGATIVE); URINE PROTEIN 3+ (NEGATIVE); URINE RBC 27951 /uL (0-23.9); URINE UROBILINOGEN 0.2 mg/dL (0.2-1.0); URINE WBC 390 /uL (0-25.8)
[2023-03-04] MEDS: ASPIRIN 81 MG CHEWABLE TABLETS PO SCH (09:31)
[2023-03-04] MEDS: ERTAPENEM SODIUM 1 GM in SODIUM CHLORIDE 50 ML IVPB SCH (09:31)
[2023-03-04] MEDS: metoPROLOL SUCCINATE 25 MG TAB.SR.24H (FP) PO SCH (09:31)
[2023-03-04] MEDS: ASCORBIC ACID 500 MG TABLET (FP) PO SCH ×2 (09:32→21:17)
[2023-03-04] MEDS: LACTOBACILLUS ACIDOPHILUS 1 TABLET PO SCH (09:32)
[2023-03-04] MEDS: DOCUSATE SODIUM 100 MG CAPSULE (FP) PO SCH ×2 (09:32→21:17)
[2023-03-04] MEDS: MAGNESIUM OXIDE 400 MG TABLET (FP) PO SCH ×2 (09:32→21:17)
[2023-03-04] MEDS: PANTOPRAZOLE 40 MG TABLET PO SCH (09:32)
[2023-03-04] MEDS: ZINC SULFATE 220 MG CAPSULE (FP) PO SCH (09:32)
[2023-03-04] MEDS: APIXABAN 5 MG TABLET PO SCH ×2 (09:33→21:17)
[2023-03-04] MEDS: MULTIVITAMINS (DAILY MVI) TABLET (FP) PO SCH (09:33)
[2023-03-04] MEDS: MINERAL OIL/PET HY-PHL TOPICAL OINTMENT 454 GM JAR TP SCH (09:33)
[2023-03-04] MEDS: POLYETHYLENE GLYCOL (HEALTHYLAX) 3350 17 GM PACKET PO SCH (09:33)
[2023-03-04 14:39] VITALS: RESP 18
[2023-03-04] MEDS: ROSUVASTATIN CA 20 MG TABLET PO SCH (21:17)
[2023-03-04] MEDS: MELATONIN 5 MG TABLETS PO PRN (21:17)
[2023-03-04] MEDS: QUEtiapine FUMARATE 100 MG TABLET (FP) PO SCH (21:17)
[2023-03-05] MEDS: GABAPENTIN 300 MG CAPSULE PO SCH ×2 (06:11→13:30)
[2023-03-05] MEDS: AMINO ACIDS/PROTEIN HYDROLYS 30 ML LIQUID.PKT PO SCH ×2 (08:03→17:20)
[2023-03-05 08:35] LABS: BASO % 0.1 % (0-2.0); HEMATOCRIT 32.1 % (35.4-49); HEMOGLOBIN 10.5 GM/dL (11.7-16.9); LYMPH % 6.1 % (8-40); MCHC 32.6 g/dl (32.0-35.9); MEAN CELL VOLUME 82.7 fl (80-96); MEAN PLT VOLUME 6.8 fl (7.5-11.1); MONO % 3.1 % (3.8-10.2); NEUT % 90.7 % (42.8-82.8); PLATELET COUNT 607 10^3/uL (134-434); RBC 3.89 M/mm3 (4.00-5.60); RDW 17.1 % (11.9-15.9); WHITE BLOOD COUNT 17.2 K/mm3 (4.0-10.0)
[2023-03-05 09:08] LABS: BLOOD UREA NITROGEN 18.2 mg/dL (7-18)
[2023-03-05 09:09] LABS: ALBUMIN 2.3 g/dl (3.4-5.0); CALCIUM 10.7 mg/dL (8.5-10.1)
[2023-03-05 09:12] LABS: CREATININE 0.5 mg/dL (0.55-1.3)
[2023-03-05 09:14] LABS: BILIRUBIN,TOTAL 0.4 mg/dL (0.2-1); TOT PROT 7.7 g/dl (6.4-8.2)
[2023-03-05] MEDS: ASPIRIN 81 MG CHEWABLE TABLETS PO SCH (09:43)
[2023-03-05] MEDS: APIXABAN 5 MG TABLET PO SCH (09:43)
[2023-03-05] MEDS: LACTOBACILLUS ACIDOPHILUS 1 TABLET PO SCH (09:43)
[2023-03-05] MEDS: metoPROLOL SUCCINATE 25 MG TAB.SR.24H (FP) PO SCH (09:43)
[2023-03-05] MEDS: MAGNESIUM OXIDE 400 MG TABLET (FP) PO SCH (09:43)
[2023-03-05] MEDS: ZINC SULFATE 220 MG CAPSULE (FP) PO SCH (09:43)
[2023-03-05] MEDS: ASCORBIC ACID 500 MG TABLET (FP) PO SCH (09:43)
[2023-03-05] MEDS: MULTIVITAMINS (DAILY MVI) TABLET (FP) PO SCH (09:43)
[2023-03-05] MEDS: PANTOPRAZOLE 40 MG TABLET PO SCH (09:43)
[2023-03-05] MEDS: POLYETHYLENE GLYCOL (HEALTHYLAX) 3350 17 GM PACKET PO SCH (09:45)
[2023-03-05] MEDS: DOCUSATE SODIUM 100 MG CAPSULE (FP) PO SCH (09:45)
[2023-03-05] MEDS: MINERAL OIL/PET HY-PHL TOPICAL OINTMENT 454 GM JAR TP SCH (13:30)
[2023-03-05] MEDS: ERTAPENEM SODIUM 1 GM in SODIUM CHLORIDE 50 ML IVPB SCH (13:30)
[2023-03-05 15:48] VITALS: TEMP 97.3
[2023-03-05 15:49] VITALS: BP 113/82; PULSE 118
[2023-03-05 18:43] LABS: METHADONE, UR NEGATIVE (NEGATIVE); PHENCYCLIDINE,URINE NEGATIVE (NEGATIVE); URINE BARBITURATES NEGATIVE (NEGATIVE); URINE BENZODIAZEPINES NEGATIVE (NEGATIVE)
[2023-03-05 18:44] LABS: COCAINE, UR NEGATIVE (NEGATIVE)
[2023-03-05 19:25] LABS: OPIATES, URI POSITIVE (NEGATIVE); URINE AMPHETAMINES NEGATIVE (NEGATIVE)
[2023-03-05 19:27] LABS: HEMATOCRIT 35.9 % (35.4-49); HEMOGLOBIN 11.6 GM/dL (11.7-16.9); MCH 26.7 pg (25.7-33.7); MCHC 32.2 g/dl (32.0-35.9); MEAN CELL VOLUME 82.8 fl (80-96); MEAN PLT VOLUME 7.3 fl (7.5-11.1); PLATELET COUNT 832 10^3/uL (134-434); RBC 4.34 M/mm3 (4.00-5.60); RDW 17.6 % (11.9-15.9); WHITE BLOOD COUNT 24.9 K/mm3 (4.0-10.0)
[2023-03-05] MEDS ORDERED: SODIUM CHLORIDE 1,000 ML IV STA (21:20)
[2023-03-05] MEDS ORDERED: PANTOPRAZOLE SODIUM 40 MG VIAL IVPUSH SCH (22:00)
== END 2023-03-05 22:30 | disposition expired | DRG 853 ==
LOC: JER 05:45 → JERBED 12:44 → JICU 15:04 → J7W 02-05 06:24 → J6S 02-16 22:34
PROVIDERS: ADMIT Internal Medicine Pulmonary Disease; ATTEND Internal Medicine
PROC: 30233N1 Transfusion of Nonautologous Red Blood Cells into Peripheral Vein, Percutaneous Approach (ICD-10-PCS; 2023-02-02)
PROC: 0JB70ZZ Excision of Back Subcutaneous Tissue and Fascia, Open Approach (ICD-10-PCS; principal; 2023-02-06 08:00)
PROC: 0DB98ZX Excision of Duodenum, Via Natural or Artificial Opening Endoscopic, Diagnostic (ICD-10-PCS; 2023-02-21)
PROC: 0DB68ZX Excision of Stomach, Via Natural or Artificial Opening Endoscopic, Diagnostic (ICD-10-PCS; 2023-02-21)
PROC: 0TJB8ZZ Inspection of Bladder, Via Natural or Artificial Opening Endoscopic (ICD-10-PCS; 2023-02-28)
DX: A41.89 Other specified sepsis (principal); R65.21 Severe sepsis with septic shock; J98.11 Atelectasis; N39.0 Urinary tract infection, site not specified; M86.18 Other acute osteomyelitis, other site; K56.7 Ileus, unspecified; E78.5 Hyperlipidemia, unspecified; I10 Essential (primary) hypertension; R33.9 Retention of urine, unspecified; D64.9 Anemia, unspecified; N35.919 Unspecified urethral stricture, male, unspecified site; D75.839 Thrombocytosis, unspecified; R31.0 Gross hematuria; E83.52 Hypercalcemia; L89.159 Pressure ulcer of sacral region, unspecified stage; D72.829 Elevated white blood cell count, unspecified; B96.89 Other specified bacterial agents as the cause of diseases classified elsewhere; K29.50 Unspecified chronic gastritis without bleeding; K44.9 Diaphragmatic hernia without obstruction or gangrene
CPT/HCPCS: 0241U-QW; 36415; 36430; 71045-TC-FY; 71275-TC; 74018-TC-FY; 74174-TC; 74177-TC; 76000-TC-FY; 76705-TC; 76937; 80048; 80053; 80307; 81003; 82272; 82310; 82550; 82553; 82728; 82747; 82803; 82962; 83010; 83540; 83550; 83605; 83615; 83735; 83970; 84100; 84155; 84165; 84466; 84484; 85014; 85025; 85027; 85045; 85610; 85651; 85730; 86140; 86850; 86900; 86901; 86922; 87040; 87070; 87075; 87077; 87081; 87086; 87186; 87205; 87635; 88304-TC; 93005; 93010; 93308; 94010; 94760; 97116-GP; 97162-GP; 99285-25; P9058; Q9967